=== PATIENT | male | born 1935 | race Caucasian/White ===

== ENCOUNTER 2017-06-08 14:30 | Outpatient (RCR) | payer MEDICARE, BC, SELFPAY | END 2017-06-16 | LOC: INF 14:30 | PROVIDERS: Family Provider Family Medicine; PCP Family Medicine | DX: C34.90 Malignant neoplasm of unspecified part of unspecified bronchus or lung (principal) | CPT/HCPCS: 99214 ==

== ENCOUNTER → 2017-08-22 10:17 | Outpatient (CLI) | payer MEDICARE, BC, SELFPAY ==
[2017-08-22 10:57] LABS: Add Manual Diff / Slide Review NO; Basophils Percent Auto 0.5 % (0-2); Lymphocytes Percent Auto 26.5 % (25-40); Mean Corpuscular HGB Conc 34.2 % (30-36); Mean Corpuscular Hemoglobin 32.9 PG (26-34); Mean Corpuscular Volume 96.3 fL (80-100); Monocytes Percent Auto 9.8 % (3-14); Neutrophils Absolute Auto 3300 /uL (3000-5900); Neutrophils Percent Auto 61.2 % (50-75); Platelet Count 147 X10^3/uL (150-400); Red Blood Cell Count 4.57 X10^6/uL (4.5-5.9); Red Cell Distribution Width 12.9 % (11.6-14.8); White Blood Cell Count 5.4 X10^3/uL (4.5-11.0)
[2017-08-22 11:13] LABS: Alanine Aminotransferase 28 IU/L (21-72); Albumin Globulin Ratio 1.5 (1.0-2.8); Alkaline Phosphatase 56 U/L (38-126); Aspartate Aminotransferase 21 IU/L (17-59); BUN Creatinine Ratio 14.3 (6-22); Bilirubin Total 0.6 mg/dL (0.2-1.3); Blood Urea Nitrogen 10 mg/dL (9-20); Calcium 9.2 mg/dL (8.4-10.2); Carbon Dioxide 34 mmol/L (22-32); Chloride 98 mmol/L (98-107); Estimated Glomerular Filt Rate > 60.0 mL/min (>60); Globulin 2.7 g/dL (1.7-4.1); Glucose 73 mg/dL (80-110); HEMOLYSIS < 15 (0-50); Sodium 140 mmol/L (137-145); Total Protein 6.7 g/dL (6.3-8.2)
== END ==
PROVIDERS: Family Provider Family Medicine; PCP Family Medicine; Visit Provider Nurse Practitioner Gerontology
DX: C34.90 Malignant neoplasm of unspecified part of unspecified bronchus or lung (principal)
CPT/HCPCS: 36415; 80053; 82378; 85025

== ENCOUNTER → 2017-08-29 12:05 | Outpatient (CLI) | payer MEDICARE, BC, SELFPAY ==
--- NOTE | 2017-08-29 12:26 | DI.CT.S_ITS ---
PROCEDURE: CT CHEST W CON INDICATIONS: 81 year-old male with left apical lung cancer. TECHNIQUE: After the administration of intravenous contrast, 5 mm thick sections acquired from the pulmonary apices to the posterior costophrenic angles. 7 mm thick coronal and sagittal MIP reformats were acquired. For radiation dose reduction, the following was used: automated exposure control, adjustment of mA and/or kV according to patient size. COMPARISON: [facility], CT, THORAX WITH CONTRAST, 06/05/2017, 10:04. [place], [place], PET NECK TO MID THIGH STD, 09/27/2016, 9:12. [facility], CT, THORAX WITH CONTRAST, 08/30/2016, 11:09. [facility], CT, IVP (ABD & PEL WWO CONTRAST), 12/20/2015, 9:19. [facility], CT, THORAX WITHOUT CONTRAST, 12/18/2013, 10:21. [facility], CT, IVP (ABD & PEL WWO CONTRAST), 09/22/2013, 13:41. FINDINGS: Image quality: Excellent. Lungs and pleura: No acute air space opacities. Patient is status post left upper lobectomy as before, with postoperative soft tissue density lesion in the medial right upper thorax slightly decreased in size. No pleural effusions or pneumothorax. Central and peripheral airways are patent and normal in caliber. Mediastinum: Heart size is normal. No pericardial effusion. No mediastinal or hilar adenopathy by size criteria. Thoracic aorta and central pulmonary arteries are normal in size. Esophagus is normal in caliber. No hiatal hernia. Bones and chest wall: No suspicious bony lesions. Nonacute healed left fifth rib fracture is new since September 2016, presumably from thoracotomy. No vertebral body compression fractures. No axillary or supraclavicular adenopathy by size criteria. Thyroid gland is normal in size. Abdomen: Visualized upper abdominal solid organs appear normal. Upper abdominal bowel loops are normal in caliber. IMPRESSION: Status post left upper lobectomy, with slightly decreased size of postoperative left superior thoracic soft tissue density lesion, presumably localized scarring. No new findings to suggest regional radha metastases or local recurrence. Dictated by: Willard Tucker M.D. on 08/29/2017 at 14:05 Approved by: Willard Tucker M.D. on 08/29/2017 at 14:15
== END ==
PROVIDERS: PCP Family Medicine; Visit Provider Nurse Practitioner Gerontology
DX: C34.92 Malignant neoplasm of unspecified part of left bronchus or lung (principal)
CPT/HCPCS: 71260; Q9967

== ENCOUNTER → 2017-10-30 09:00 | Outpatient (CLI) | payer MEDICARE, BC, SELFPAY ==
--- NOTE | 2017-10-30 | DI.CT.S_ITS ---
PROCEDURE: CT ABDOMEN PELVIS WO/W CON INDICATIONS: PROSTATE CANCER TECHNIQUE: After the administration of oral contrast, 5 mm thick sections acquired from the diaphragms to the iliac crests. After the administration of intravenous contrast, 5 mm thick sections acquired from the diaphragms to the symphysis. 5 mm thick coronal and sagittal reformats were acquired. For radiation dose reduction, the following was used: automated exposure control, adjustment of mA and/or kV according to patient size. COMPARISON: [facility], CT, IVP (ABD & PEL WWO CONTRAST), 12/20/2015, 9:19. [facility], [place], PET NECK TO MID THIGH STD, 09/27/2016, 9:12. FINDINGS: Image quality: Excellent. ABDOMEN: Lung bases: Lung bases show minimal dependent ground glass opacities in the right, likely atelectatic. Heart size is normal. Solid organs: Liver is normal in size and enhancement. A 5 mm hypodensity in the anterior dome of liver is too small to characterize but appears unchanged. Gallbladder is unremarkable. Biliary system is non-dilated. Pancreas enhances normally. Spleen is normal in size and enhancement. No adrenal nodules. Both kidneys are normal in size. No hydronephrosis or nephrolithiasis. In the central right kidney is an 8mm hyperdense rounded mass, not well-seen on prior. In the posterior right lower pole is an exophytic 1.5 cm hypodense mass that is unchanged. In the far inferior pole of the right kidney is a 1.6 x 1.8 cm isodense mass that was hyperdense on prior exam and does again show heterogeneous enhancement. Prior measurement of this mass was 1.8 x 1.8 cm and 2015 and 1.6 x 1.6 cm and 2008. Bowel and peritoneum: Stomach, small and large bowel loops are normal in caliber and wall thickness. Sutures are present over the cecum. No free fluid or air. Nodes and vessels: No retroperitoneal or mesenteric adenopathy by size criteria. Atheromatous aorta and inferior vena are normal in caliber. Miscellaneous: No ventral hernias. PELVIS: Genitourinary: Bladder wall thickness is normal. Numerous radioactive seeds are again noted in the prostate Miscellaneous: Bilateral fat filled inguinal hernias, no adenopathy. Bones: No suspicious bony lesions. No vertebral body compression fractures. IMPRESSION: 1. Mass lesion suspect for low grade renal cell carcinoma at the inferior tip of the right kidney remains stable in size. Additional simple and hyperdense renal cysts. 2. Prostate brachytherapy with no apparent metastatic disease. 3. Known mass in the left upper lobe of lung is not included in this study. Dictated by: New Crowley M.D. on 10/30/2017 at 14:04 Approved by: New Crowley M.D. on 10/30/2017 at 14:23
[2017-10-30 09:36] LABS: BUN Creatinine Ratio 15.7 (6-22); Blood Urea Nitrogen 11 mg/dL (9-20); Estimated Glomerular Filt Rate > 60.0 mL/min (>60)
== END ==
PROVIDERS: PCP Family Medicine; Visit Provider Urology
DX: C61 Malignant neoplasm of prostate (principal); N28.89 Other specified disorders of kidney and ureter
CPT/HCPCS: 36415; 74178; 82565; 84520; Q9967

== ENCOUNTER → 2018-02-26 09:57 | Outpatient (CLI) | payer MEDICARE, BC, SELFPAY ==
[2018-02-26 10:19] LABS: Add Manual Diff / Slide Review NO; Basophils Percent Auto 0.5 % (0-2); Eosinophils Percent Auto 1.2 % (2-4); Hematocrit 46.2 % (41-53); Hemoglobin 15.7 g/dL (13.5-17.5); Mean Corpuscular HGB Conc 34.1 % (30-36); Mean Corpuscular Hemoglobin 32.9 PG (26-34); Mean Corpuscular Volume 96.3 fL (80-100); Monocytes Percent Auto 8.2 % (3-14); Neutrophils Absolute Auto 4300 /uL (3000-5900); Neutrophils Percent Auto 71.1 % (50-75); Platelet Count 156 X10^3/uL (150-400); Red Blood Cell Count 4.79 X10^6/uL (4.5-5.9); Red Cell Distribution Width 13.1 % (11.6-14.8); White Blood Cell Count 6.1 X10^3/uL (4.5-11.0)
[2018-02-26 10:29] LABS: Alanine Aminotransferase 27 IU/L (21-72); Albumin 4.3 g/dL (3.5-5.0); Albumin Globulin Ratio 1.7 (1.0-2.8); Alkaline Phosphatase 63 U/L (38-126); Aspartate Aminotransferase 22 IU/L (17-59); BUN Creatinine Ratio 15.7 (6-22); Bilirubin Total 0.7 mg/dL (0.2-1.3); Blood Urea Nitrogen 11 mg/dL (9-20); Calcium 9.2 mg/dL (8.4-10.2); Carbon Dioxide 32 mmol/L (22-32); Chloride 98 mmol/L (98-107); Estimated Glomerular Filt Rate > 60.0 mL/min (>60); Globulin 2.5 g/dL (1.7-4.1); Glucose 88 mg/dL (80-110); HEMOLYSIS 18 (0-50); Potassium 4.7 mmol/L (3.4-5.1); Sodium 141 mmol/L (137-145); Total Protein 6.8 g/dL (6.3-8.2)
[2018-02-26 11:07] LABS: Carcinoembryonic Antigen 5.7 ng/mL (0.1-3.0)
--- NOTE | 2018-02-26 11:56 | DI.CT.S_ITS ---
PROCEDURE: CT CHEST W CON INDICATIONS: Lung cancer surveillence post lobectomy TECHNIQUE: After the administration of intravenous contrast, 5 mm thick sections acquired from the pulmonary apices to the posterior costophrenic angles. 7 mm thick coronal and sagittal MIP reformats were acquired. For radiation dose reduction, the following was used: automated exposure control, adjustment of mA and/or kV according to patient size. COMPARISON: [facility], CT, CT CHEST W CON, 08/29/2017, 12:07. FINDINGS: Image quality: Excellent. Lungs and pleura: Status post left upper lobectomy. The low-density focus within the medial aspect of the left apex which partially encases the left subclavian artery is unchanged, currently measuring 32 mm in diameter. Severe bilateral emphysema is present, as before. No acute air space opacities. No pleural effusions or pneumothorax. Central and peripheral airways are patent. There is narrowing of the transverse diameter of the intrathoracic trachea, as before. Mediastinum: Heart size is enlarged. There is calcification of the coronary vasculature. No pericardial effusion. No mediastinal or hilar adenopathy by size criteria. Thoracic aorta and central pulmonary arteries are normal in size. Esophagus is normal in caliber. No hiatal hernia. Bones and chest wall: No suspicious bony lesions. No vertebral body compression fractures. No axillary or supraclavicular adenopathy by size criteria. Thyroid gland is within normal limits. Abdomen: Visualized upper abdominal solid organs appear normal. Upper abdominal bowel loops are normal in caliber. IMPRESSION: 1. Post surgical sequelae. 2. No change in left apical lesion, compatible with scarring. 3. Emphysema. 4. Coronary artery disease. Dictated by: David Pierre M.D. on 02/26/2018 at 17:03 Approved by: David Pierre M.D. on 02/26/2018 at 17:05
== END ==
PROVIDERS: PCP Family Medicine; Referring Provider Surgery; Visit Provider Nurse Practitioner Gerontology
DX: C34.90 Malignant neoplasm of unspecified part of unspecified bronchus or lung (principal); J43.9 Emphysema, unspecified; I25.10 Atherosclerotic heart disease of native coronary artery without angina pectoris
CPT/HCPCS: 36415; 71260; 80053; 82378; 85025; Q9967

== ENCOUNTER 2018-05-13 15:49 | Inpatient (IN) | payer MEDICARE, BC, SELFPAY ==
[2018-05-13 15:54] VITALS: BP 140/65; PULSE 83; RESP 18; TEMP 36.9; O2SAT 94; BMI 21.9
[2018-05-13 17:17] LABS: Add Manual Diff / Slide Review NO; Basophils Absolute Auto 0 /uL (0-100); Basophils Percent Auto 0.5 % (0-2); Eosinophils Absolute Auto 0 /uL (0-450); Eosinophils Percent Auto 0.5 % (2-4); Hematocrit 49.2 % (41-53); Hemoglobin 16.4 g/dL (13.5-17.5); Lymphocytes Absolute Auto 1100 /uL (1100-4500); Lymphocytes Percent Auto 12.4 % (25-40); Mean Corpuscular HGB Conc 33.4 % (30-36); Mean Corpuscular Volume 95.9 fL (80-100); Monocytes Absolute Auto 600 /uL (0-900); Monocytes Percent Auto 6.7 % (3-14); Neutrophils Absolute Auto 6800 /uL (1500-7000); Neutrophils Percent Auto 79.9 % (50-75); Platelet Count 149 X10^3/uL (150-400); Red Blood Cell Count 5.13 X10^6/uL (4.5-5.9); White Blood Cell Count 8.6 X10^3/uL (4.5-11.0)
[2018-05-13 17:19] LABS: Alanine Aminotransferase 28 IU/L (21-72); Albumin 4.4 g/dL (3.5-5.0); Albumin Globulin Ratio 1.5 (1.0-2.8); Alkaline Phosphatase 69 U/L (38-126); Aspartate Aminotransferase 24 IU/L (17-59); BUN Creatinine Ratio 18.6 (6-22); Bilirubin Total 1.2 mg/dL (0.2-1.3); Blood Urea Nitrogen 13 mg/dL (9-20); Calcium 9.3 mg/dL (8.4-10.2); Carbon Dioxide 27 mmol/L (22-32); Chloride 95 mmol/L (98-107); Estimated Glomerular Filt Rate > 60.0 mL/min (>60); Glucose 111 mg/dL (80-110); HEMOLYSIS 32 (0-50); Lipase 29 U/L (23-300); Potassium 4.4 mmol/L (3.4-5.1); Sodium 134 mmol/L (137-145); Total Protein 7.4 g/dL (6.3-8.2)
[2018-05-13 17:35] VITALS: BP 140/59; PULSE 84; RESP 19; O2SAT 94
--- NOTE | 2018-05-13 17:41 | DI.CT.S_ITS ---
PROCEDURE: CT ABDOMEN PELVIS W CON INDICATIONS: vomiting pain distention hx sbo TECHNIQUE: After the administration of intravenous contrast, 5 mm thick sections acquired from the diaphragm to the symphysis. 5 mm coronal and sagittal reformats were acquired. For radiation dose reduction, the following was used: automated exposure control, adjustment of mA and/or kV according to patient size. COMPARISON: [facility], CT, CT ABDOMEN PELVIS WO/W CON, 10/30/2017, 9:48. FINDINGS: Image quality: Excellent. ABDOMEN: Lung bases: Lung bases are clear. Heart size is normal. Solid organs: Liver is normal in size and enhancement. Gallbladder is unremarkable. Biliary system is non dilated. Pancreas enhances normally. Spleen is normal in size and enhancement. No adrenal nodules. Kidneys demonstrate normal size and enhancement, without hydronephrosis. 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 No other renal masses are seen. Peritoneum and bowel: There is a small bowel obstruction, which is distal. The proximal small bowel is dilated up to 5.3 cm. Partial colectomy is noted. There is stool present to a suture line at the level of the mid transverse colon. Nodes and vessels: No retroperitoneal or mesenteric adenopathy by size criteria. Aorta and inferior vena cava are normal in size. Miscellaneous: No ventral hernias. PELVIS: Genitourinary: Bladder wall thickness is normal. Prostate implant seeds are noted. Miscellaneous: No inguinal hernias or adenopathy. Bones: No suspicious bony lesions. No vertebral body compression fractures. IMPRESSION: 1. Distal small bowel obstruction. 2. Remote partial colectomy. 3. Prostate implant seeds. 4. 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 Dictated by: Yon Anderson M.D. on 05/13/2018 at 18:32 Approved by: Yon Anderson M.D. on 05/13/2018 at 18:43
[2018-05-13] MEDS: SODIUM CHLORIDE 0.9% 1,000 ML 150 ML IV ×2 (17:48→22:51)
[2018-05-13 18:30] LABS: Lactate (Lactic Acid) 0.9 mmol/L (0.7-2.1)
--- NOTE | 2018-05-13 19:05 | ED.ABDPAIN ---
HPI - Abdominal Pain General Chief Complaint: Abdominal Pain Stated Complaint: thinks he has a bowl obstruction Time Seen by Provider: 05/13/18 17:41 Source: patient and family Mode of arrival: ambulatory Limitations: no limitations History of Present Illness HPI narrative: 82-year-old male nonsmoker presents with his and a chief complaint of lower abdominal pain over the course of the day. He had a few small pieces of bowel movement earlier today with since late morning he has had worsening lower abdominal pain with nausea. His pain is worse with motion and improves with rest. He denies provocation, palliation or radiation. He states his history of bowel obstruction started with what sounds like a volvulus a few years ago in which he had a surgical resection. He had another bowel obstruction in 2017 that was managed medically. Related Data Home Medications Medication Instructions Recorded Confirmed Spiriva with HandiHaler 18 mcg RT 0600 #0 09/18/16 05/13/18 calcium carbonate [Oyster Shell 500 mg PO DAILY #0 09/18/16 05/13/18 Calcium 500] cholecalciferol (vitamin D3) 2,000 iu PO DAILY #0 09/18/16 05/13/18 [Vitamin D3] albuterol sulfate 2 puff INHALATION Q6H PRN 08/31/17 05/13/18 atorvastatin [Lipitor] 10 mg PO DAILY 08/31/17 05/13/18 Lactobac. rhamnosus GG-inulin 1 cap PO DAILY 05/13/18 05/13/18 [Culturelle Probiotics] ascorbic acid (vitamin C) [Vitamin 1 g PO DAILY 05/13/18 05/13/18 C] magnesium 250 mg PO DAILY 05/13/18 05/13/18 gfrgijee-gir-AR-lycopen-lutein 1 tab PO DAILY 05/13/18 05/13/18 [Centrum Silver] piroxicam 20 mg PO DAILY PRN 05/13/18 05/13/18 Allergies Allergy/AdvReac Type Severity Reaction Status Date / Time adhesive AdvReac Mild REDNESS Unverified 06/27/17 11:48 naproxen AdvReac Mild TERRIBLE Unverified 06/27/17 11:48 GAS PAIN Review of Systems Constitutional Denies chills, Denies fever(s), Denies lethargy and Denies weakness Eyes Denies change in vision, Denies eye discharge, Denies irritation and Denies loss of vision ENT Ears, Nose, Mouth, and Throat: Denies change in voice, Denies neck pain and Denies sore throat Cardiovascular Denies chest pain, Denies irregular heart rhythm, Denies lightheadedness, Denies palpitations, Denies dyspnea, Denies dyspnea on exertion and Denies orthopnea Respiratory Denies cough, Denies dyspnea, Denies dyspnea on exertion and Denies wheezing Gastrointestinal Gastrointestinal: Reports abdominal pain, Denies change in bowel habits, Denies diarrhea, Reports nausea and Denies vomiting Genitourinary Denies hematuria, Denies flank pain, Denies urinary incontinence and Denies urinary urgency Musculoskeletal Denies neck pain Integumentary/Breasts Denies pruritus, Denies erythema, Denies rash and Denies wounds Neurologic Denies confusion, Denies loss of vision and Denies weakness Psychiatric Denies anxiety, Denies confusion, Denies depression, Denies homicidal ideation and Denies suicidal ideation Endocrine Denies palpitations Hematologic/Lymphatic Denies easy bruising Allergic/Immunologic Denies wheezing [employer] Medical History Cataract of right eye (Acute) Cyst of buttocks (Acute) Inguinal hernia bilateral, non-recurrent (Acute) Surgical History H/O vasectomy (Acute) Hx of colectomy (Acute) Social History household members: spouse Smoking Status: Never smoker alcohol intake: never Social History household members: spouse Smoking Status: Never smoker alcohol intake: never Exam Narrative Exam Narrative: GENERAL: 82-year-old male, very pleasant but obviously uncomfortable. Alert and oriented x3 HEAD: Atraumatic. Normocephalic. No temporal or scalp tenderness. EYES: Pupils equal round and reactive. Extraocular motions intact. No scleral icterus. No injection or drainage. ENT: Nose without bleeding, purulent drainage or septal hematoma. Throat without erythema, tonsillar hypertrophy or exudate. Uvula midline. Airway patent. NECK: Trachea midline. No JVD or lymphadenopathy. Supple, nontender, no meningeal signs. CARDIOVASCULAR: Regular rate and rhythm without murmurs, gallops, or rubs. RESPIRATORY: Clear to auscultation. Breath sounds equal bilaterally. No wheezes, rales, or rhonchi. GASTROINTESTINAL: Abdomen is soft but distended with decreased bowel sounds. It is quite tender to palpation in his lower the abdomen EXTREMITIES: No clubbing, cyanosis, or edema. No joint tenderness, effusion, or edema noted. BACK: Nontender without deformity or crepitance. No flank tenderness. NEURO: AOx3. SKIN: No rash or erythema. Initial Vital Signs Initial Vital Signs: Vital Signs Temperature 98.5 F 05/13/18 15:54 Pulse Rate 83 05/13/18 15:54 Respiratory Rate 18 05/13/18 15:54 Blood Pressure 140/65 05/13/18 15:54 Pulse Oximetry 94 05/13/18 15:54 Course Orders Ordered: ED Orders 05/14/18 05:30 Basic Metabolic Panel Stat Complete Blood Count AUTO DIFF Stat Albuterol (Ventolin Hfa) 2 puff INH Q6H PRN PRN Reason: Dyspnea Atorvastatin Calcium (Lipitor) 10 mg PO DAILY ISABEL Sodium Chloride (Normal Saline 0.9%) 1,000 mls @ 150 mls/hr IV CONT ISABEL Last Admin: 05/13/18 22:51 Dose: 150 mls/hr Infusion: 05/13/18 22:10 Dose: 150 mls/hr Infusion: 05/13/18 22:09 Dose: 0 mls/hr Infusion: 05/13/18 19:54 Dose: 150 mls/hr Admin: 05/13/18 17:48 Dose: 150 mls/hr Morphine Sulfate (Morphine) 2 mg IV Q4HR PRN PRN Reason: Pain, Severe (7-10) Ondansetron HCl (Zofran) 4 mg IV Q4HR PRN PRN Reason: Nausea And Vomiting Pantoprazole Sodium (Protonix) 40 mg IV DAILY ISABEL Discontinued Medications Hydromorphone HCl (Dilaudid) 0.5 mg IV NOW ONE Stop: 05/13/18 17:42 Last Admin: 05/13/18 19:54 Dose: Not Given Ondansetron HCl (Zofran) 4 mg IV NOW ONE Stop: 05/13/18 17:42 Last Admin: 05/13/18 19:54 Dose: Not Given Consultations Consultation #1: Discussed case with on-call surgeon and we sure the opinion that given lack of vomiting, radiographic evidence of complete obstruction and elevated white count the patient can be appropriately admitted to Medicine with surgical consult as needed Consultation #2: Called to Dr. Rasmussen whom is on-call for the patient's primary care provider, Dr. Knott. We agree that given lack of persistent vomiting, complete obstruction that patient does not need NG tube at this point in time Vital Signs - 8 hr 05/13/18 20:45 05/13/18 23:55 05/14/18 04:00 Temperature 97.1 F L 99.4 F 98.5 F Pulse Rate 97 H 89 Respiratory Rate 20 16 18 Blood Pressure 130/68 129/57 L 128/60 Pulse Oximetry 91 92 91 MDM - Abdominal Pain Differential Diagnosis Differential diagnosis: Likely abdominal pain, acute appendicitis, calculus of kidney, constipation, diverticulitis, endometriosis, gastroenteritis, pancreatitis and small bowel obstruction Medical Records Attestation: I reviewed the patient's medical records. Lab Data Attestation: I reviewed the patient's lab results. Result diagrams: 05/13/18 16:55 05/13/18 16:55 Lab Results 05/13/18 05/13/18 05/13/18 Range/Units 16:55 16:55 18:13 WBC 8.6 (4.5-11.0) X10^3/uL RBC 5.13 (4.5-5.9) X10^6/uL Hgb 16.4 (13.5-17.5) g/dL Hct 49.2 (41-53) % MCV 95.9 (80-100) fL MCH 32.0 (26-34) PG MCHC 33.4 (30-36) % RDW 13.0 (11.6-14.8) % Plt Count 149 L (150-400) X10^3/uL Neut % (Auto) 79.9 H (50-75) % Lymph % (Auto) 12.4 L (25-40) % Bent % (Auto) 6.7 (3-14) % Eos % (Auto) 0.5 L (2-4) % Baso % (Auto) 0.5 (0-2) % Neut # (Auto) 6800 (6677-6809) /uL Lymph # (Auto) 1100 (9232-3379) /uL Bent # (Auto) 600 (0-900) /uL Eos # (Auto) 0 (0-450) /uL Baso # (Auto) 0 (0-100) /uL Sodium 134 L (137-145) mmol/L Potassium 4.4 (3.4-5.1) mmol/L Chloride 95 L (98-107) mmol/L Carbon Dioxide 27 (22-32) mmol/L BUN 13 (9-20) mg/dL Creatinine 0.70 (0.66-1.25) mg/dL Estimated GFR > 60.0 (>60) mL/min BUN/Creatinine Ratio 18.6 (6-22) Glucose 111 H (80-110) mg/dL Lactate 0.9 (0.7-2.1) mmol/L Calcium 9.3 (8.4-10.2) mg/dL Total Bilirubin 1.2 (0.2-1.3) mg/dL AST 24 (17-59) IU/L ALT 28 (21-72) IU/L Alkaline Phosphatase 69 (38-126) U/L Total Protein 7.4 (6.3-8.2) g/dL Albumin 4.4 (3.5-5.0) g/dL Globulin 3.0 (1.7-4.1) g/dL Albumin/Globulin Ratio 1.5 (1.0-2.8) Lipase 29 (23-300) U/L Imaging Data CT scan - abdomen: Radiologist's impression: [address] [address] [address] Scan Report Signed Patient: Jose Neal WMR#: [id number] : 6Acct:[id number] Age/Sex: 82 / MDate of Service: 05/13/18 Loc: ED Accession Number: [id number] Procedure: CT abdomen pelvis w con Ordering Provider: Dee Dee Mcintyre D.O. PROCEDURE: CT ABDOMEN PELVIS W CON INDICATIONS: vomiting pain distention hx sbo TECHNIQUE: After the administration of intravenous contrast, 5 mm thick sections acquired from the diaphragm to the symphysis. 5 mm coronal and sagittal reformats were acquired. For radiation dose reduction, the following was used: automated exposure control, adjustment of mA and/or kV according to patient size. COMPARISON: [facility], CT, CT ABDOMEN PELVIS WO/W CON, 10/30/2017, 9:48. FINDINGS: Image quality: Excellent. ABDOMEN: Lung bases: Lung bases are clear. Heart size is normal. Solid organs: Liver is normal in size and enhancement. Gallbladder is unremarkable. Biliary system is non dilated. Pancreas enhances normally. Spleen is normal in size and enhancement. No adrenal nodules. Kidneys demonstrate normal size and enhancement, without hydronephrosis. 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 No other renal masses are seen. Peritoneum and bowel: There is a small bowel obstruction, which is distal. The proximal small bowel is dilated up to 5.3 cm. Partial colectomy is noted. There is stool present to a suture line at the level of the mid transverse colon. Nodes and vessels: No retroperitoneal or mesenteric adenopathy by size criteria. Aorta and inferior vena cava are normal in size. Miscellaneous: No ventral hernias. PELVIS: Genitourinary: Bladder wall thickness is normal. Prostate implant seeds are noted. Miscellaneous: No inguinal hernias or adenopathy. Bones: No suspicious bony lesions. No vertebral body compression fractures. IMPRESSION: 1. Distal small bowel obstruction. 2. Remote partial colectomy. 3. Prostate implant seeds. 4. 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 Dictated by: Yon Anderson M.D. on 05/13/2018 at 18:32 Approved by: Yon Anderson M.D. on 05/13/2018 at 18:43 MDM Narrative Medical decision making narrative: 82-year-old male with history of small-bowel obstruction presents with signs and symptoms consistent with another, confirmed by imaging. Initial consult to General surgery whom is comfortable with patient admission to hospitalist service. No NG indicated given lack of vomiting or persistent pain requiring the the multiple narcotics. Patient requires admission to ensure the prompt and complete resolution of this potentially surgical problem Discharge Plan Departure Patient Disposition: Admitted As Inpatient Clinical Impression: Bowel obstruction Qualifiers: Intestinal obstruction type: obstruction due to adhesions Intestinal obstruction extent: partial Qualified Code(s): K56.51 - Intestinal adhesions [bands], with partial obstruction Discharge Date/Time: 05/13/18 19:30 Interventions: ED Discharge Assessment Last Done: 05/13/18 20:28 Admit Date/Time: 05/13/18 19:24 Admit Provider: Lis Rasmussen
[2018-05-13 19:55] VITALS: BP 147/98
[2018-05-13 20:12] VITALS: BMI 21.9
[2018-05-13 20:45] VITALS: BP 130/68; RESP 20; TEMP 36.2; O2SAT 91
--- NOTE | 2018-05-13 22:01 | PC.NURSE ---
2030- Pt arrived from ED safely; admit for small bowel obstruction. Pt states he is having some R sided abdominal discomfort, but denies the need for pain medication. VSS; RA; NS running per orders. @ bedside; pt is able to ambulate independently. NPO for poss surgery. Urine sample sent to lab per orders. 2199- & pt informed that nighttime statin medication would not be available because pharmacy is closed. Agreeable, and understand the situation. No medications given at this time.
[2018-05-13 23:55] VITALS: BP 129/57; PULSE 97; RESP 16; TEMP 37.4; O2SAT 92
--- NOTE | 2018-05-13 23:59 | PC.NURSE ---
Addendum entered by Halina Rosenbaum R.N. 05/14/18 04:55: Has been very stoic all shift, refusing pain medication but now agreeable to taking Morphine for 5/10 abdominal pain. States he is not passing as much flatus. Original Note: Patient is alert and oriented. Breath sounds CTA but with congested chronic cough related to COPD; reports clear sputum. Denies SOB; RA sat is 92%. HRR. Denies nausea. BT present; abdomen is soft, distended and tender in RLQ. States he is passing flatus. Denies dysuria, frequency or urgency; using urinal at bedside. Independent with bed mobility. Denies current pain but states it waxes and wanes. rooming in. Fall risk score is moderate; patient reminded to call for assist and not to get out of bed on own.
[2018-05-14] VITALS (8 sets, daily range): BP systolic 110–132; BP diastolic 54–62; PULSE 73–98; RESP 16–24; TEMP 36.7–37.2; O2SAT 90–97
--- NOTE | 2018-05-14 03:58 | ED_ITS ---
HPI - Abdominal Pain General Chief Complaint: Abdominal Pain Stated Complaint: thinks he has a bowl obstruction Time Seen by Provider: 05/13/18 17:41 Source: patient and family Mode of arrival: ambulatory Limitations: no limitations History of Present Illness HPI narrative: 82-year-old male nonsmoker presents with his and a chief complaint of lower abdominal pain over the course of the day. He had a few smal l pieces of bowel movement earlier today with since late morning he has had worsening lower abdominal pain with nausea. His pain is worse with motion and improves with rest. He denies provocation, palliation or radiation. He states his history of bowel obstruction started with what sounds like a volvulus a few years ago in which he had a surgical resection. He had another bowel obstruction in 2017 that was managed medically. Related Data Home Medications Medication Instructions Recorded Confirmed Spiriva with HandiHaler 18 mcg RT 0600 #0 09/18/16 05/13/18 calcium carbonate [Oyster Shell 500 mg PO DAILY #0 09/18/16 05/13/18 Calcium 500] cholecalciferol (vitamin D3) 2,000 iu PO DAILY #0 09/18/16 05/13/18 [Vitamin D3] albuterol sulfate 2 puff INHALATION Q6H PRN 08/31/17 05/13/18 atorvastatin [Lipitor] 10 mg PO DAILY 08/31/17 05/13/18 Lactobac. rhamnosus GG-inulin 1 cap PO DAILY 05/13/18 05/13/18 [Culturelle Probiotics] ascorbic acid (vitamin C) [Vitamin 1 g PO DAILY 05/13/18 05/13/18 C] magnesium 250 mg PO DAILY 05/13/18 05/13/18 [id number]-lycopen-lutein 1 tab PO DAILY 05/13/18 05/13/18 [Centrum Silver] piroxicam 20 mg PO DAILY PRN 05/13/18 05/13/18 Allergies Allergy/AdvReac Type Severity Reaction Status Date / Time adhesive AdvReac Mild REDNESS Unverified 06/27/17 11:48 naproxen AdvReac Mild TERRIBLE Unverified 06/27/17 11:48 GAS PAIN Review of Systems Constitutional Denies chills, Denies fever(s), Denies lethargy and Denies weakness Eyes Denies change in vision, Denies eye discharge, Denies irritation and Denies loss of vision ENT Ears, Nose, Mouth, and Throat: Denies change in voice, Denies neck pain and Denies sore throat Cardiovascular Denies chest pain, Denies irregular heart rhythm, Denies lightheadedness, Denies palpitations, Denies dyspnea, Denies dyspnea on exertion and Denies orthopnea Respiratory Denies cough, Denies dyspnea, Denies dyspnea on exertion and Denies wheezing Gastrointestinal Gastrointestinal: Reports abdominal pain, Denies change in bowel habits, Denies diarrhea, Reports nausea and Denies vomiting Genitourinary Denies hematuria, Denies flank pain, Denies urinary incontinence and Denies urinary urgency Musculoskeletal Denies neck pain Integumentary/Breasts Denies pruritus, Denies erythema, Denies rash and Denies wounds Neurologic Denies confusion, Denies loss of vision and Denies weakness Psychiatric Denies anxiety, Denies confusion, Denies depression, Denies homicidal ideation and Denies suicidal ideation Endocrine Denies palpitations Hematologic/Lymphatic Denies easy bruising Allergic/Immunologic Denies wheezing PFSH Medical History Cataract of right eye (Acute) Cyst of buttocks (Acute) Inguinal hernia bilateral, non-recurrent (Acute) Surgical History H/O vasectomy (Acute) Hx of colectomy (Acute) Social History household members: spouse Smoking Status: Never smoker alcohol intake: never Social History household members: spouse Smoking Status: Never smoker alcohol intake: never Exam Narrative Exam Narrative: GENERAL: 82-year-old male, very pleasant but obviously uncomfortable. Alert and oriented x3 HEAD: Atraumatic. Normocephalic. No temporal or scalp tenderness. EYES: Pupils equal round and reactive. Extraocular motions intact. No scleral icterus. No injection or drainage. ENT: Nose without bleeding, purulent drainage or septal hematoma. Throat without erythema, tonsillar hypertrophy or exudate. Uvula midline. Airway patent. NECK: Trachea midline. No JVD or lymphadenopathy. Supple, nontender, no meningeal signs. CARDIOVASCULAR: Regular rate and rhythm without murmurs, gallops, or rubs. RESPIRATORY: Clear to auscultation. Breath sounds equal bilaterally. No wheezes, rales, or rhonchi. GASTROINTESTINAL: Abdomen is soft but distended with decreased bowel sounds. It is quite tender to palpation in his lower the abdomen EXTREMITIES: No clubbing, cyanosis, or edema. No joint tenderness, effusion, or edema noted. BACK: Nontender without deformity or crepitance. No flank tenderness. NEURO: AOx3. SKIN: No rash or erythema. Initial Vital Signs Initial Vital Signs: Vital Signs Temperature 98.5 F 05/13/18 15:54 Pulse Rate 83 05/13/18 15:54 Respiratory Rate 18 05/13/18 15:54 Blood Pressure 140/65 05/13/18 15:54 Pulse Oximetry 94 05/13/18 15:54 Course Orders Ordered: ED Orders 05/14/18 05:30 Basic Metabolic Panel Stat Complete Blood Count AUTO DIFF Stat Albuterol (Ventolin Hfa) 2 puff INH Q6H PRN PRN Reason: Dyspnea Atorvastatin Calcium (Lipitor) 10 mg PO DAILY ISABEL Sodium Chloride (Normal Saline 0.9%) 1,000 mls @ 150 mls/hr IV CONT ISABEL Last Admin: 05/13/18 22:51 Dose: 150 mls/hr Infusion: 05/13/18 22:10 Dose: 150 mls/hr Infusion: 05/13/18 22:09 Dose: 0 mls/hr Infusion: 05/13/18 19:54 Dose: 150 mls/hr Admin: 05/13/18 17:48 Dose: 150 mls/hr Morphine Sulfate (Morphine) 2 mg IV Q4HR PRN PRN Reason: Pain, Severe (7-10) Ondansetron HCl (Zofran) 4 mg IV Q4HR PRN PRN Reason: Nausea And Vomiting Pantoprazole Sodium (Protonix) 40 mg IV DAILY ISABEL Discontinued Medications Hydromorphone HCl (Dilaudid) 0.5 mg IV NOW ONE Stop: 05/13/18 17:42 Last Admin: 05/13/18 19:54 Dose: Not Given Ondansetron HCl (Zofran) 4 mg IV NOW ONE Stop: 05/13/18 17:42 Last Admin: 05/13/18 19:54 Dose: Not Given Consultations Consultation #1: Discussed case with on-call surgeon and we sure the opinion that given lack of vomiting, radiographic evidence of complete obstruction and elevated white count the patient can be appropriately admitted to Medicine with surgical consult as needed Consultation #2: Called to Dr. Rasmussen whom is on-call for the patient's primary care provider, Dr. Knott. We agree that given lack of persistent vomiting, complete obstruction that patient does not need NG tube at this point in time Vital Signs - 8 hr 05/13/18 20:45 05/13/18 23:55 05/14/18 04:00 Temperature 97.1 F L 99.4 F 98.5 F Pulse Rate 97 H 89 Respiratory Rate 20 16 18 Blood Pressure 130/68 129/57 L 128/60 Pulse Oximetry 91 92 91 MDM - Abdominal Pain Differential Diagnosis Differential diagnosis: Likely abdominal pain, acute appendicitis, calculus of kidney, constipation, diverticulitis, endometriosis, gastroenteritis, pancreatitis and small bowel obstruction Medical Records Attestation: I reviewed the patient's medical records. Lab Data Attestation: I reviewed the patient's lab results. Result diagrams: 05/13/18 16:55 05/13/18 16:55 Lab Results 05/13/18 05/13/18 05/13/18 Range/Units 16:55 16:55 18:13 WBC 8.6 (4.5-11.0) X10^3/uL RBC 5.13 (4.5-5.9) X10^6/uL Hgb 16.4 (13.5-17.5) g/dL Hct 49.2 (41-53) % MCV 95.9 (80-100) fL MCH 32.0 (26-34) PG MCHC 33.4 (30-36) % RDW 13.0 (11.6-14.8) % Plt Count 149 L (150-400) X10^3/uL Neut % (Auto) 79.9 H (50-75) % Lymph % (Auto) 12.4 L (25-40) % [place] % (Auto) 6.7 (3-14) % Eos % (Auto) 0.5 L (2-4) % Baso % (Auto) 0.5 (0-2) % Neut # (Auto) 6800 (1376-2242) /uL Lymph # (Auto) 1100 (6398-6868) /uL [place] # (Auto) 600 (0-900) /uL Eos # (Auto) 0 (0-450) /uL Baso # (Auto) 0 (0-100) /uL Sodium 134 L (137-145) mmol/L Potassium 4.4 (3.4-5.1) mmol/L Chloride 95 L (98-107) mmol/L Carbon Dioxide 27 (22-32) mmol/L BUN 13 (9-20) mg/dL Creatinine 0.70 (0.66-1.25) mg/dL Estimated GFR > 60.0 (>60) mL/min BUN/Creatinine Ratio 18.6 (6-22) Glucose 111 H (80-110) mg/dL Lactate 0.9 (0.7-2.1) mmol/L Calcium 9.3 (8.4-10.2) mg/dL Total Bilirubin 1.2 (0.2-1.3) mg/dL AST 24 (17-59) IU/L ALT 28 (21-72) IU/L Alkaline Phosphatase 69 (38-126) U/L Total Protein 7.4 (6.3-8.2) g/dL Albumin 4.4 (3.5-5.0) g/dL Globulin 3.0 (1.7-4.1) g/dL Albumin/Globulin Ratio 1.5 (1.0-2.8) Lipase 29 (23-300) U/L Imaging Data CT scan - abdomen: Radiologist's impression: [place] [address] CT Scan Report Signed Patient: Jose Neal WMR#: [id number] : 6Acct:[id number] Age/Sex: 82 / MDate of Service: 05/13/18 Loc: ED Accession Number: [id number] Procedure: CT abdomen pelvis w con Ordering Provider: Dee Dee Mcintyre D.O. PROCEDURE: CT ABDOMEN PELVIS W CON INDICATIONS: vomiting pain distention hx sbo TECHNIQUE: After the administration of intravenous contrast, 5 mm thick sections acquired from the diaphragm to the symphysis. 5 mm coronal and sagittal reformats were acquired. For radiation dose reduction, the following was used: automated exposure control, adjustment of mA and/or kV according to patient size. COMPARISON: [facility], CT, CT ABDOMEN PELVIS WO/W CON, 10/30/2017, 9:48. FINDINGS: Image quality: Excellent. ABDOMEN: Lung bases: Lung bases are clear. Heart size is normal. Solid organs: Liver is normal in size and enhancement. Gallbladder is unremarkable. Biliary system is non dilated. Pancreas enhances normally. Spleen is normal in size and enhancement. No adrenal nodules. Kidneys demonstrate normal size and enhancement, without hydronephrosis. 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 No other renal masses are seen. Peritoneum and bowel: There is a small bowel obstruction, which is distal. The proximal small bowel is dilated up to 5.3 cm. Partial colectomy is noted. There is stool present to a suture line at the level of the mid transverse colon. Nodes and vessels: No retroperitoneal or mesenteric adenopathy by size criteria. Aorta and inferior vena cava are normal in size. Miscellaneous: No ventral hernias. PELVIS: Genitourinary: Bladder wall thickness is normal. Prostate implant seeds are noted. Miscellaneous: No inguinal hernias or adenopathy. Bones: No suspicious bony lesions. No vertebral body compression fractures. IMPRESSION: 1. Distal small bowel obstruction. 2. Remote partial colectomy. 3. Prostate implant seeds. 4. 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 Dictated by: Yon Anderson M.D. on 05/13/2018 at 18:32 Approved by: Yon Anderson M.D. on 05/13/2018 at 18:43 MDM Narrative Medical decision making narrative: 82-year-old male with history of small-bowel obstruction presents with signs and symptoms consistent with another, confirmed by imaging. Initial consult to General surgery whom is comfortable with patient admission to hospitalist service. No NG indicated given lack of vomiting or persistent pain requiring the the multiple narcotics. Patient requires admission to ensure the prompt and complete resolution of this potentially surgical problem Discharge Plan Departure Patient Disposition: Admitted As Inpatient Clinical Impression: Bowel obstruction Qualifiers: Intestinal obstruction type: obstruction due to adhesions Intestinal obstruction extent: partial Qualified Code(s): K56.51 - Intestinal adhesions [bands], with partial obstruction Discharge Date/Time: 05/13/18 19:30 Interventions: ED Discharge Assessment Last Done: 05/13/18 20:28 Admit Date/Time: 05/13/18 19:24 Admit Provider: Lis Rasmussen
[2018-05-14] MEDS: SODIUM CHLORIDE 0.9% 1,000 ML 150 ML IV ×3 (04:51→18:30)
[2018-05-14] MEDS: MORPHINE 2 MG/ML INJ IV ×2 (04:53→11:24)
[2018-05-14 07:29] LABS: Add Manual Diff / Slide Review NO; Basophils Absolute Auto 0 /uL (0-100); Basophils Percent Auto 0.1 % (0-2); Eosinophils Absolute Auto 0 /uL (0-450); Eosinophils Percent Auto 0.7 % (2-4); Hematocrit 42.8 % (41-53); Hemoglobin 14.3 g/dL (13.5-17.5); Lymphocytes Absolute Auto 700 /uL (1100-4500); Lymphocytes Percent Auto 12.5 % (25-40); Mean Corpuscular HGB Conc 33.4 % (30-36); Mean Corpuscular Hemoglobin 31.9 PG (26-34); Mean Corpuscular Volume 95.4 fL (80-100); Monocytes Absolute Auto 700 /uL (0-900); Monocytes Percent Auto 11.8 % (3-14); Neutrophils Absolute Auto 4300 /uL (1500-7000); Neutrophils Percent Auto 74.9 % (50-75); Platelet Count 125 X10^3/uL (150-400); Red Blood Cell Count 4.48 X10^6/uL (4.5-5.9); Red Cell Distribution Width 12.7 % (11.6-14.8); White Blood Cell Count 5.7 X10^3/uL (4.5-11.0)
[2018-05-14 07:35] LABS: BUN Creatinine Ratio 16.7 (6-22); Blood Urea Nitrogen 10 mg/dL (9-20); Calcium 7.9 mg/dL (8.4-10.2); Carbon Dioxide 25 mmol/L (22-32); Chloride 102 mmol/L (98-107); Estimated Glomerular Filt Rate > 60.0 mL/min (>60); Glucose 94 mg/dL (80-110); HEMOLYSIS < 15 (0-50); Potassium 4.2 mmol/L (3.4-5.1); Sodium 134 mmol/L (137-145)
[2018-05-14] MEDS: ENOXAPARIN 40 MG/0.4 ML SYRINGE SUBCUT (10:07)
[2018-05-14] MEDS: PANTOPRAZOLE 40 MG VIAL IV (10:07)
--- NOTE | 2018-05-14 10:30 | CM.DANOTE ---
DCP: Case received, EMR reviewed and met with patient. Introduced self and role. DCP template completed with information currently available. Patient is an 82 year old male who admitted yesterday evening to the care of the hospitalist team. PCP: Dr. Siddiqui. Payer: confirmed: Medicare/[employer] [facility]. Patient came to hospital via family vehicle due to abdominal pain. Patient was concerned that he had a bowel obstruction, for he has had this before. He should be getting a surgical consult today. Met with patient, alert and oriented, in room as well. Patient stated, for now, he is on clear liquids, but is feeling a little better. He stated that he is independent at home, and does drive. Lives in [place] with his , Sarah. P: DCP to continue to follow. Will see how he progresses here in hospital. May be having surgery, unknown at this time. Ana Aj RN/Grounding Engineer
[2018-05-14] MEDS: ONDANSETRON 4 MG/2 ML INJ IV (11:23)
--- NOTE | 2018-05-14 13:37 | P.HP_ITS ---
History of Present Illness Date Patient Seen: 05/14/18 Time Patient Seen: 13:26 Chief complaint: thinks he has a bowl obstruction Narrative: Patient is a 82-year-old male well known to me who presents with increasing abdominal pain. Basically started feeling like maybe was constipated. Was having some increase in abdominal discomfort. Did not have any nausea or vomiting. Fevers or chills. Bowel movements were decreased. Maybe a little hard. It was mild patient took some MiraLax seemed to have a bowel movement felt like maybe things were better. Sunday things increasingly got worse along with Sunday the point where is unable to take it at home. Pain was diffuse maybe more left-sided. No radiation. Nothing seemed to make it better or worse. Sometimes felt like he wanted to curl. Crampy pain. Due to this fact and the fact that he has had a previous small bowel obstruction with ?acquired surgery patient came to the hospital. Patient 2 years ago had a pretty significant ischemic bowel up a soda which required surgery and had pretty significant issues with recovery pulmonary snider. Otherwise no significant changes or complaints. Has had no urinary changes. No fevers or chills. No night sweats. No blood in his stool. Has had a little bit of change in stool but otherwise no changes. He has had no difficulty breathing no cough no nausea family has been sick. Past medical history: COPD Hyperlipidemia History of bladder cancer History of prostate cancer History of smoking greater than 40 pack year quit 2 years ago History of liver mass History of kidney mass Past surgical history Pilonidal cyst Double hernia 1996 Right colectomy secondary to polyps 2000 Partial cystectomy 2010 Vasectomy Reactive see implants 2002 Small-bowel resection secondary to volvulus 11/30/2014 Family history dad was not call it, mother of natural causes no big issues. No significant sibling problems. Social history many years, retired [employer] worker Sixteen years I had occasion Habits occasional alcohol no more smoking 2 years ago quit Patient History Medical History Cataract of right eye (Acute) Cyst of buttocks (Acute) Inguinal hernia bilateral, non-recurrent (Acute) Surgical History H/O vasectomy (Acute) Hx of colectomy (Acute) Social History household members: spouse Smoking Status: Never smoker alcohol intake: never Family & Social History Social History: household members spouse Prior Living Arrangements House Safety & Behavioral: Feels Safe in Current Yes Environment Been Physically Hurt or No Threatened By a Person Suicidal Ideation Description None Suicide Plan Description No Plan Tobacco & Substance use: Smoking Status Never smoker alcohol intake never Substance Use Type does not use Meds Home Medications Medication Instructions Recorded Confirmed Type Spiriva with HandiHaler 18 mcg RT 0600 #0 09/18/16 05/13/18 History calcium carbonate [Oyster Shell 500 mg PO DAILY #0 09/18/16 05/13/18 History Calcium 500] cholecalciferol (vitamin D3) 2,000 iu PO DAILY #0 09/18/16 05/13/18 History [Vitamin D3] albuterol sulfate 2 puff INHALATION Q6H PRN 08/31/17 05/13/18 History atorvastatin [Lipitor] 10 mg PO DAILY 08/31/17 05/13/18 History Lactobac. rhamnosus GG-inulin 1 cap PO DAILY 05/13/18 05/13/18 History [Culturelle Probiotics] ascorbic acid (vitamin C) [Vitamin 1 g PO DAILY 05/13/18 05/13/18 History C] magnesium 250 mg PO DAILY 05/13/18 05/13/18 History nzcfzugq-uxs-OV-lycopen-lutein 1 tab PO DAILY 05/13/18 05/13/18 History [Centrum Silver] piroxicam 20 mg PO DAILY PRN 05/13/18 05/13/18 History Allergies Allergy/AdvReac Type Severity Reaction Status Date / Time adhesive AdvReac Mild REDNESS Verified 05/14/18 09:59 naproxen AdvReac Mild TERRIBLE Verified 05/14/18 09:59 GAS PAIN Review of Systems Review of Systems All systems reviewed & are unremarkable except as noted in HPI and below Exam Vital Signs (past 8 hours): - 05/14/18 07:55 05/14/18 11:05 Temperature 98.0 F Pulse Rate 98 H 87 Respiratory Rate 24 20 Blood Pressure 116/54 L 122/62 Pulse Oximetry 91 91 Oxygen Delivery Method Room Air Oxygen Flow Rate 0 Narrative Exam Narrative: Alert elderly male no acute distress lying in bed. Mucous membranes moist. Neck is supple without adenopathy. Lungs diffuse expiratory wheeze with mild decreased breath sounds. Heart regular rate rhythm without murmurs clicks rubs or gallops. Abdomen is mildly distended soft positive bowel sounds somewhat increased in intensity moderate left lower quadrant tenderness no rebound guarding no masses. Extremities without cyanosis clubbing edema. Neurologic exam is completely normal. Psychologically inte ractive appropriate no signs of depression or other problem Objective Labs Result Diagrams: 05/14/18 06:35 05/14/18 06:35 Labs: Laboratory Results - last 24 hr 05/13/18 05/13/18 05/13/18 16:55 16:55 18:13 WBC 8.6 RBC 5.13 Hgb 16.4 Hct 49.2 MCV 95.9 MCH 32.0 MCHC 33.4 RDW 13.0 Plt Count 149 L Neut % (Auto) 79.9 H Lymph % (Auto) 12.4 L [place] % (Auto) 6.7 Eos % (Auto) 0.5 L Baso % (Auto) 0.5 Neut # (Auto) 6800 Lymph # (Auto) 1100 [place] # (Auto) 600 Eos # (Auto) 0 Baso # (Auto) 0 Sodium 134 L Potassium 4.4 Chloride 95 L Carbon Dioxide 27 BUN 13 Creatinine 0.70 Estimated GFR > 60.0 BUN/Creatinine Ratio 18.6 Glucose 111 H Lactate 0.9 Calcium 9.3 Total Bilirubin 1.2 AST 24 ALT 28 Alkaline Phosphatase 69 Total Protein 7.4 Albumin 4.4 Globulin 3.0 Albumin/Globulin Ratio 1.5 Lipase 29 05/14/18 05/14/18 06:35 06:35 WBC 5.7 RBC 4.48 L Hgb 14.3 Hct 42.8 MCV 95.4 MCH 31.9 MCHC 33.4 RDW 12.7 Plt Count 125 L Neut % (Auto) 74.9 Lymph % (Auto) 12.5 L [place] % (Auto) 11.8 Eos % (Auto) 0.7 L Baso % (Auto) 0.1 Neut # (Auto) 4300 Lymph # (Auto) 700 L [place] # (Auto) 700 Eos # (Auto) 0 Baso # (Auto) 0 Sodium 134 L Potassium 4.2 Chloride 102 Carbon Dioxide 25 BUN 10 Creatinine 0.60 L Estimated GFR > 60.0 BUN/Creatinine Ratio 16.7 Glucose 94 Lactate Calcium 7.9 L Total Bilirubin AST ALT Alkaline Phosphatase Total Protein Albumin Globulin Albumin/Globulin Ratio Lipase Assessment & Plan Assessment & Plan narrative: A small-bowel obstruction. Certainly clinically seems to be improved today. Pretty significant obstruction on CT scan patient with a significant history of issues in the past with ischemic bowel I do not think that is going on normal white count and no fever but will consult surgeons just to be sure there is no change I do not think he needs an NG at this time. Will consider clear liquids and follow. May be a few days before he settles down. Certainly do not want to push. Considering how bad the last episode was. COPD. Overall stable. Will continue Spiriva and albuterol. Follow from there. Dehydration. Mild. Continue IV hydration. History of lung cancer stable. History of prostate cancer stable. Disposition. Will be a couple days to see how he does. Depending on what surgeon recommends may be able to slowly increase his diet but will take at least probably 72 hr before we can get things settled completely down. Patient understands questions answered Time Spent With Patient Time with patient: 25 - 35 minutes Quality VTE Deep Vein Thrombosis/Pulmonary Embolism Present on Admission: No
--- NOTE | 2018-05-14 14:12 | PM.CN ---
History of Present Illness Date Patient Seen: 05/14/18 Time Patient Seen: 10:00 Chief complaint: thinks he has a bowl obstruction Reason for consult: Small-bowel obstruction Requesting provider: Jose Siddiqui Narrative: 82-year-old male well known to me and [facility] from prior laparotomies, bowel resection for ischemic bowel, and left upper lobectomy for primary lung cancer who was actually seen in the office last week for follow-up of his lung surgery and presented to the emergency department yesterday with complaints of progressive abdominal pain and distention. He was actually doing quite well at his follow-up visit last week. However in the last 24 hr or so he has had progressive abdominal distention, nausea, and decreased bowel function. No vomiting. However his appetite has been suppressed due to the distention and nausea. He is now having some crampy abdominal pain diffusely. Passed a small amount of flatus in the lung puller hours today but none since. Last bowel movement was yesterday but describes this as small caliber and volume. Overall he feels as if this is consistent with his prior episodes of bowel obstruction. No fever or chills. No dysuria or hematuria. [facility] Medical History Cataract of right eye (Acute) Cyst of buttocks (Acute) Inguinal hernia bilateral, non-recurrent (Acute) Surgical History H/O vasectomy (Acute) Hx of colectomy (Acute) Social History household members: spouse Smoking Status: Never smoker alcohol intake: never Social History household members: spouse Smoking Status: Never smoker alcohol intake: never Meds Home Medications Medication Instructions Recorded Confirmed Type Spiriva with HandiHaler 18 mcg RT 0600 #0 09/18/16 05/13/18 History calcium carbonate [Oyster Shell 500 mg PO DAILY #0 09/18/16 05/13/18 History Calcium 500] cholecalciferol (vitamin D3) 2,000 iu PO DAILY #0 09/18/16 05/13/18 History [Vitamin D3] albuterol sulfate 2 puff INHALATION Q6H PRN 08/31/17 05/13/18 History atorvastatin [Lipitor] 10 mg PO DAILY 08/31/17 05/13/18 History Lactobac. rhamnosus GG-inulin 1 cap PO DAILY 05/13/18 05/13/18 History [Culturelle Probiotics] ascorbic acid (vitamin C) [Vitamin 1 g PO DAILY 05/13/18 05/13/18 History C] magnesium 250 mg PO DAILY 05/13/18 05/13/18 History izdsddqf-rwe-OQ-lycopen-lutein 1 tab PO DAILY 05/13/18 05/13/18 History [Centrum Silver] piroxicam 20 mg PO DAILY PRN 05/13/18 05/13/18 History Allergies Allergy/AdvReac Type Severity Reaction Status Date / Time adhesive AdvReac Mild REDNESS Verified 05/14/18 09:59 naproxen AdvReac Mild TERRIBLE Verified 05/14/18 09:59 GAS PAIN Review of Systems Review of Systems All systems reviewed & are unremarkable except as noted in HPI and below Exam Vital Signs (past 8 hours): - 05/14/18 07:55 05/14/18 11:05 Temperature 98.0 F Pulse Rate 98 H 87 Respiratory Rate 24 20 Blood Pressure 116/54 L 122/62 Pulse Oximetry 91 91 Oxygen Delivery Method Room Air Oxygen Flow Rate 0 Narrative Exam Narrative: Elderly male in no acute distress. Alert oriented x3. is at the bedside for my entire visit. No fever since admission. No tachycardia. Blood pressure normal. Adequate urine output Has some audible wheezes consistent with his known COPD. Abdomen is distended and tympanitic. Well-healed surgical scars. No obvious hernias. He is diffusely mildly tender but certainly with no guarding or rebound. No obvious masses. No ascites. Extremities show no clubbing or cyanosis Objective Labs Result Diagrams: 05/14/18 06:35 05/14/18 06:35 Labs: Laboratory Results - last 24 hr 05/13/18 05/13/18 05/13/18 16:55 16:55 18:13 WBC 8.6 RBC 5.13 Hgb 16.4 Hct 49.2 MCV 95.9 MCH 32.0 MCHC 33.4 RDW 13.0 Plt Count 149 L Neut % (Auto) 79.9 H Lymph % (Auto) 12.4 L [place] % (Auto) 6.7 Eos % (Auto) 0.5 L Baso % (Auto) 0.5 Neut # (Auto) 6800 Lymph # (Auto) 1100 [place] # (Auto) 600 Eos # (Auto) 0 Baso # (Auto) 0 Sodium 134 L Potassium 4.4 Chloride 95 L Carbon Dioxide 27 BUN 13 Creatinine 0.70 Estimated GFR > 60.0 BUN/Creatinine Ratio 18.6 Glucose 111 H Lactate 0.9 Calcium 9.3 Total Bilirubin 1.2 AST 24 ALT 28 Alkaline Phosphatase 69 Total Protein 7.4 Albumin 4.4 Globulin 3.0 Albumin/Globulin Ratio 1.5 Lipase 29 05/14/18 05/14/18 06:35 06:35 WBC 5.7 RBC 4.48 L Hgb 14.3 Hct 42.8 MCV 95.4 MCH 31.9 MCHC 33.4 RDW 12.7 Plt Count 125 L Neut % (Auto) 74.9 Lymph % (Auto) 12.5 L [place] % (Auto) 11.8 Eos % (Auto) 0.7 L Baso % (Auto) 0.1 Neut # (Auto) 4300 Lymph # (Auto) 700 L [place] # (Auto) 700 Eos # (Auto) 0 Baso # (Auto) 0 Sodium 134 L Potassium 4.2 Chloride 102 Carbon Dioxide 25 BUN 10 Creatinine 0.60 L Estimated GFR > 60.0 BUN/Creatinine Ratio 16.7 Glucose 94 Lactate Calcium 7.9 L Total Bilirubin AST ALT Alkaline Phosphatase Total Protein Albumin Globulin Albumin/Globulin Ratio Lipase I have personally reviewed his CT scan of the abdomen and pelvis done yesterday. He has multiple dilated loops of small bowel with air-fluid levels. No free air. No pneumatosis. Transition point appears to be distal. No significant fluid in the abdomen or pelvis. 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 He has no evidence of mesenteric ischemia or significant acidosis. No evidence of infectious complications. No evidence of perforation. At this point we will proceed with conservative measures including bowel rest and IV fluid resuscitation. I advised him that he may very well require nasogastric tube insertion if he has ongoing nausea or if he begins to have vomiting in conjunction with lack of bowel function and progressive distention. Pain is currently well controlled on present regimen. No indication for surgical intervention at this time. 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 If it appeared that he would require laparotomy following failure of all non operative conservative measures that he understands that such operation would need to be done under the care of a surgery team at a tertiary center. Particularly his postoperative care would be quite complicated and most likely will involve significant ICU care. Hopefully none of this will be necessary and he will resolve spontaneously. If he does not show signs of progression then I would recommend nasogastric tube insertion to help facilitate small-bowel follow-through study as well which he may require this admission. I discussed all this with him and his at length. All questions were answered to the patient's satisfaction, and he voiced understanding. We will continue to follow him this admission.
--- NOTE | 2018-05-14 14:19 | P.CONS_ITS ---
History of Present Illness Date Patient Seen: 05/14/18 Time Patient Seen: 10:00 Chief complaint: thinks he has a bowl obstruction Reason for consult: Small-bowel obstruction Requesting provider: Jose Siddiqui Narrative: 82-year-old male well known to me and [facility] from prior laparotomies, bowel resection for ischemic bowel, and left upper lobectomy for primary lung cancer who was actually seen in the office last week for follow-up of his lung surgery and presented to the emergency department yesterday with complaints of progressive abdominal pain and distention. He was actually doing quite well at his follow-up visit last week. However in the last 24 hr or so he has had progressive abdominal distention, nausea, and decreased bowel function. No vomiting. However his appetite has been suppressed due to the distention and nausea. He is now having some crampy abdominal pain diffusely. Passed a small amount of flatus in the lab rn hours today but none since. Last bowel movement was yesterday but describes this as small caliber and volume. Overall he feels as if this is consistent with his prior episodes of bowel obstruction. No fever or chills. No dysuria or hematuria. [facility] Medical History Cataract of right eye (Acute) Cyst of buttocks (Acute) Inguinal hernia bilateral, non-recurrent (Acute) Surgical History H/O vasectomy (Acute) Hx of colectomy (Acute) Social History household members: spouse Smoking Status: Never smoker alcohol intake: never Social History household members: spouse Smoking Status: Never smoker alcohol intake: never Meds Home Medications Medication Instructions Recorded Confirmed Type Spiriva with HandiHaler 18 mcg RT 0600 #0 09/18/16 05/13/18 History calcium carbonate [Oyster Shell 500 mg PO DAILY #0 09/18/16 05/13/18 History Calcium 500] cholecalciferol (vitamin D3) 2,000 iu PO DAILY #0 09/18/16 05/13/18 History [Vitamin D3] albuterol sulfate 2 puff INHALATION Q6H PRN 08/31/17 05/13/18 History atorvastatin [Lipitor] 10 mg PO DAILY 08/31/17 05/13/18 History Lactobac. rhamnosus GG-inulin 1 cap PO DAILY 05/13/18 05/13/18 History [Culturelle Probiotics] ascorbic acid (vitamin C) [Vitamin 1 g PO DAILY 05/13/18 05/13/18 History C] magnesium 250 mg PO DAILY 05/13/18 05/13/18 History pnkcjljw-wlb-SU-lycopen-lutein 1 tab PO DAILY 05/13/18 05/13/18 History [Centrum Silver] piroxicam 20 mg PO DAILY PRN 05/13/18 05/13/18 History Allergies Allergy/AdvReac Type Severity Reaction Status Date / Time adhesive AdvReac Mild REDNESS Verified 05/14/18 09:59 naproxen AdvReac Mild TERRIBLE Verified 05/14/18 09:59 GAS PAIN Review of Systems Review of Systems All systems reviewed & are unremarkable except as noted in HPI and below Exam Vital Signs (past 8 hours): - 05/14/18 07:55 05/14/18 11:05 Temperature 98.0 F Pulse Rate 98 H 87 Respiratory Rate 24 20 Blood Pressure 116/54 L 122/62 Pulse Oximetry 91 91 Oxygen Delivery Method Room Air Oxygen Flow Rate 0 Narrative Exam Narrative: Elderly male in no acute distress. Alert oriented x3. is at the bedside for my entire visit. No fever since admission. No tachycardia. Blood pressure normal. Adequate urine output Has some audible wheezes consistent with his known COPD. Abdomen is distended and tympanitic. Well-healed surgical scars. No obvious hernias. He is diffusely mildly tender but certainly with no guarding or rebound. No obvious masses. No ascites. Extremities show no clubbing or cyanosis Objective Labs Result Diagrams: 05/14/18 06:35 05/14/18 06:35 Labs: Laboratory Results - last 24 hr 05/13/18 05/13/18 05/13/18 16:55 16:55 18:13 WBC 8.6 RBC 5.13 Hgb 16.4 Hct 49.2 MCV 95.9 MCH 32.0 MCHC 33.4 RDW 13.0 Plt Count 149 L Neut % (Auto) 79.9 H Lymph % (Auto) 12.4 L [place] % (Auto) 6.7 Eos % (Auto) 0.5 L Baso % (Auto) 0.5 Neut # (Auto) 6800 Lymph # (Auto) 1100 [place] # (Auto) 600 Eos # (Auto) 0 Baso # (Auto) 0 Sodium 134 L Potassium 4.4 Chloride 95 L Carbon Dioxide 27 BUN 13 Creatinine 0.70 Estimated GFR > 60.0 BUN/Creatinine Ratio 18.6 Glucose 111 H Lactate 0.9 Calcium 9.3 Total Bilirubin 1.2 AST 24 ALT 28 Alkaline Phosphatase 69 Total Protein 7.4 Albumin 4.4 Globulin 3.0 Albumin/Globulin Ratio 1.5 Lipase 29 05/14/18 05/14/18 06:35 06:35 WBC 5.7 RBC 4.48 L Hgb 14.3 Hct 42.8 MCV 95.4 MCH 31.9 MCHC 33.4 RDW 12.7 Plt Count 125 L Neut % (Auto) 74.9 Lymph % (Auto) 12.5 L [place] % (Auto) 11.8 Eos % (Auto) 0.7 L Baso % (Auto) 0.1 Neut # (Auto) 4300 Lymph # (Auto) 700 L [place] # (Auto) 700 Eos # (Auto) 0 Baso # (Auto) 0 Sodium 134 L Potassium 4.2 Chloride 102 Carbon Dioxide 25 BUN 10 Creatinine 0.60 L Estimated GFR > 60.0 BUN/Creatinine Ratio 16.7 Glucose 94 Lactate Calcium 7.9 L Total Bilirubin AST ALT Alkaline Phosphatase Total Protein Albumin Globulin Albumin/Globulin Ratio Lipase I have personally reviewed his CT scan of the abdomen and pelvis done yesterday. He has multiple dilated loops of small bowel with air-fluid levels. No free air. No pneumatosis. Transition point appears to be distal. No significant fluid in the abdomen or pelvis. 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 He has no evidence of mesenteric ischemia or significant acidosis. No evidence of infectious complications. No evidence of perforation. At this point we will proceed with conservative measures including bowel rest and IV fluid resuscitation. I advised him that he may very well require nasogastric tube insertion if he has ongoing nausea or if he begins to have vomiting in conjunction with lack of bowel function and progressive distention. Pain is currently well controlled on present regimen. No indication for surgical intervention at this time. 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 If it appeared that he would require laparotomy following failure of all non operative conservative measures that he understands that such operation would need to be done under the care of a [facility] [place] [facility] [place] team at a tertiary center. Particularly his postoperative care would be quite complicated and most likely will involve significant ICU care. Hopefully none of this will be necessary and he will resolve spontaneously. If he does not show signs of progression then I would recommend nasogastric tube insertion to help facilitate small-bowel follow-through study as well which he may require this admission. I discussed all this with him and his at length. All questions were answered to the patient's satisfaction, and he voiced understanding. We will continue to follow him this admission.
--- NOTE | 2018-05-14 14:58 | PC.NURSE ---
GI: Feels better this afternoon. BT's are present more active now and has been passing flatus and did have a sm bm. Did get a dose of zofran and morphine earlier. Helpful and was able to walk in hallways this afternoon. Spouse at bedside most of shift. Denies any problems. Cont w/poc.
[2018-05-14] MEDS: ATORVASTATIN 10 MG TABLET PO (20:20)
--- NOTE | 2018-05-14 22:15 | PC.NURSE ---
Pt resting quietly throughtout evening. Denies discomfort/ Ambulated in hallway w/staff. IVF NS infusing into the LFA via pump @ 150cc/hr w/o incidence. Call light w/in reach, call s appropriately for needs. Continue w/plan of care.
--- NOTE | 2018-05-14 23:46 | PC.NURSE ---
Addendum entered by Halina Rosenbaum R.N. 05/15/18 06:53: Noted blood glucose on lab draw was only 50 this morning so provided with juice. Will check with MD regarding changing IVF. Original Note: Addendum entered by Halina Rosenbaum R.N. 05/15/18 06:50: Slept most of shift. Denies pain this morning. States he continues to pass flatus and denies nausea. Original Note: Patient is alert and oriented. Breath sounds diminished with scattered expiratory rhonchi. RA sat 82% when first wakened so placed on oxygen at 2L/min per NC with sat now at 93%. HRR. Denies nausea. Abdomen remains distended but has hypoactive BT and is passing flatus; tender to deeper palpation in bilateral lower quadrants. Denies dysuria, frequency or urgency; using urinal to void. Independent with mobility. Denies pain. Fall risk score is moderate; calls for assist appropriately. rooming in.
[2018-05-15] VITALS (11 sets, daily range): BP systolic 118–142; BP diastolic 48–79; PULSE 64–89; RESP 12–24; TEMP 36.4–37.2; O2SAT 91–96
--- NOTE | 2018-05-15 | DI.RAD.S_ITS ---
PROCEDURE: XR ACUTE ABDOMEN SERIES INDICATIONS: small bowel obstruction TECHNIQUE: One view chest and two views of the abdomen were acquired. COMPARISON: [facility], CT, CT ABDOMEN PELVIS W CON, 05/13/2018, 17:56. [facility], CT, CT CHEST W CON, 02/26/2018, 11:52. [facility], CR, ABDOMEN ACUTE SERIES, 06/29/2016, 11:21. FINDINGS: Surgical changes and devices: Prostate seed implants are seen. Laparoscopic anchors are seen, consistent with groin hernia repair. Chest: Lungs are clear. The cardiac contours are within normal limits. The aorta demonstrates calcification and tortuosity. There is a small left-sided pleural effusion. No pneumoperitoneum. Abdomen: Mild prominence of gas-filled loops of small bowel can be seen. Gas can be within the colon. No suspicious calcifications. Visualized solid organ contours appear normal. Bones: No suspicious bony lesions. Moderate dextroconvex thoracolumbar scoliosis is seen. Age-appropriate bony degenerative changes are seen. IMPRESSION: The previously seen small bowel obstruction is believed to have resolved, with a small amount of residual ileus. Small left-sided pleural effusion. Postoperative and degenerative changes are seen. Dictated by: Nguyễn Rees M.D. on 05/15/2018 at 8:02 Approved by: Nguyễn Rees M.D. on 05/15/2018 at 8:05
--- NOTE | 2018-05-15 | DI.RAD.S_ITS ---
PROCEDURE: FL SMALL BOWEL FOLLOW THROUGH INDICATIONS: sbo COMPARISON: [facility], CR, XR ACUTE ABDOMEN SERIES, 05/15/2018, 4:57. [facility], CT, CT ABDOMEN PELVIS W CON, 05/13/2018, 17:56. [facility], RF, SMALL BOWEL FOLLOW THROUGH, 06/30/2016, 8:36. FINDINGS: KUB: Preprocedural casing blower film demonstrates multiple loops of gaseous distended bowel. Nasogastric tube tip and side-port project over the upper midabdomen in the expected location of the stomach. Suture material projects over the left lower quadrant of the abdomen. There are moderate multilevel degenerative changes of the lumbar spine. Postsurgical changes of prior hernia repair and prostate radiation seed therapy are noted projecting over the lower pelvis. There is small left pleural effusion. Small bowel: Ingested oral contrast material passes through the small bowel and reaches the colon within 45 minutes. Small bowel loops remain dilated, measuring up to 6.0 cm in greatest diameter. No convincing strictures, intraluminal masses, or extrinsic mass effects are noted. There are postsurgical changes of prior bowel resection. The terminal ileum cannot be clearly identified on this exam. IMPRESSION: There is residual dilatation of the small bowel but with ingested oral contrast material reaching the colon; this suggests the presence of residual ileus, with a partial bowel obstruction thought less likely. Dictated by: Rudy Maher M.D. on 05/15/2018 at 15:26 Approved by: Rudy Maher M.D. on 05/15/2018 at 15:38
[2018-05-15] MEDS: SODIUM CHLORIDE 0.9% 1,000 ML 150 ML IV (01:00)
[2018-05-15 06:26] LABS: Add Manual Diff / Slide Review NO; Basophils Absolute Auto 0 /uL (0-100); Basophils Percent Auto 0.4 % (0-2); Eosinophils Absolute Auto 100 /uL (0-450); Eosinophils Percent Auto 2.8 % (2-4); Hematocrit 39.4 % (41-53); Lymphocytes Absolute Auto 800 /uL (1100-4500); Lymphocytes Percent Auto 17.2 % (25-40); Mean Corpuscular Hemoglobin 32.2 PG (26-34); Mean Corpuscular Volume 97.7 fL (80-100); Monocytes Absolute Auto 500 /uL (0-900); Monocytes Percent Auto 9.9 % (3-14); Neutrophils Absolute Auto 3200 /uL (1500-7000); Neutrophils Percent Auto 69.7 % (50-75); Platelet Count 108 X10^3/uL (150-400); Red Blood Cell Count 4.04 X10^6/uL (4.5-5.9); Red Cell Distribution Width 12.8 % (11.6-14.8); White Blood Cell Count 4.6 X10^3/uL (4.5-11.0)
[2018-05-15 06:28] LABS: BUN Creatinine Ratio 16.7 (6-22); Blood Urea Nitrogen 10 mg/dL (9-20); Calcium 7.7 mg/dL (8.4-10.2); Carbon Dioxide 22 mmol/L (22-32); Chloride 106 mmol/L (98-107); Estimated Glomerular Filt Rate > 60.0 mL/min (>60); Glucose 50 mg/dL (80-110); HEMOLYSIS < 15 (0-50); Potassium 4.2 mmol/L (3.4-5.1); Sodium 136 mmol/L (137-145)
[2018-05-15] MEDS: DEXTROSE 5%-0.9% NS 1,000 ML 150 ML IV ×2 (07:28→22:00)
[2018-05-15] MEDS: PANTOPRAZOLE 40 MG VIAL IV (08:41)
[2018-05-15] MEDS: ENOXAPARIN 40 MG/0.4 ML SYRINGE SUBCUT (08:41)
--- NOTE | 2018-05-15 09:11 | PM.PN.1 ---
Subjective Date Patient Seen: 05/15/18 Time Patient Seen: 09:11 Interval history: Patient passing small amount of flatus only. No bowel movement. Remains distended. No significant nausea or vomiting. No dysuria or hematuria. Denies any significant abdominal pain. Now on oxygen overnight with minimal dyspnea. Exam Vital Signs (past 8 hours): - 05/15/18 04:44 05/15/18 07:28 Temperature 98.3 F 97.6 F Pulse Rate 89 78 Respiratory Rate 19 18 Blood Pressure 120/48 L 127/73 Pulse Oximetry 91 91 Oxygen Delivery Method Nasal Cannula Oxygen Flow Rate 2 Narrative Exam Narrative: Elderly male sitting comfortably in bed in no acute distress. Alert oriented x3. Remains afebrile and hemodynamically stable Chest shows distant breath sounds bilaterally consistent with COPD. Few wheezes. Abdomen remains distended and tympanitic throughout. He is otherwise soft and essentially nontender. No guarding or rebound. Few bowel sounds. Objective Labs Result Diagrams: 05/15/18 06:02 05/15/18 06:02 Labs: Laboratory Results - last 24 hr 05/15/18 05/15/18 06:02 06:02 WBC 4.6 RBC 4.04 L Hgb 13.0 L Hct 39.4 L MCV 97.7 MCH 32.2 MCHC 33.0 RDW 12.8 Plt Count 108 L Neut % (Auto) 69.7 Lymph % (Auto) 17.2 L [place] % (Auto) 9.9 Eos % (Auto) 2.8 Baso % (Auto) 0.4 Neut # (Auto) 3200 Lymph # (Auto) 800 L [place] # (Auto) 500 Eos # (Auto) 100 Baso # (Auto) 0 Sodium 136 L Potassium 4.2 Chloride 106 Carbon Dioxide 22 BUN 10 Creatinine 0.60 L Estimated GFR > 60.0 BUN/Creatinine Ratio 16.7 Glucose 50 L Calcium 7.7 L I have personally reviewed his abdominal series done this morning. He continues to have some dilated loops of small bowel with some air-fluid levels throughout although they do appear improved compared to the CT [facility] film done 2 days ago. No free air. He does have left pleural effusion and fluid in the fissure consistent with pulmonary edema. Assessment & Plan Assessment & Plan narrative: 82-year-old male with partial small bowel obstruction. I do not believe that this is completely resolved however. He does not have an ileus. He is fluid overloaded with some pulmonary edema manifesting as some dyspnea and transient hypoxia. I have slow down the IV fluids. At this point I believe he would benefit from small-bowel follow-through. I discussed this with him today. This will require nasogastric tube decompression. He is agreeable to such. Hopefully small-bowel follow-through may be both diagnostic and therapeutic. Fortunately has no evidence of significant intra-abdominal bowel compromise or infectious process necessitating surgical intervention. Again, I am hopeful that he will respond to non operative management as above. All questions were answered to his satisfaction, and he voiced understanding. Orders were written. Case reviewed with the attending nurse. Quality VTE Deep Vein Thrombosis/Pulmonary Embolism Present on Admission: No
--- NOTE | 2018-05-15 12:18 | PM.PN.1 ---
Subjective Date Patient Seen: 05/15/18 Time Patient Seen: 12:18 Interval history: Patient having a little more trouble breathing. Feels it is secondary to the NG tube which was placed. Has been bothering him quite a bit. No cough. No chest pain. Abdominal pain is about the same. Not a lot worse. Exam Vital Signs (past 8 hours): - 05/15/18 04:44 05/15/18 07:28 05/15/18 08:00 Temperature 98.3 F 97.6 F Pulse Rate 89 78 Respiratory Rate 19 18 Blood Pressure 120/48 L 127/73 Pulse Oximetry 91 91 92 05/15/18 11:10 Temperature 97.7 F Pulse Rate 64 Respiratory Rate 18 Blood Pressure 118/57 L Pulse Oximetry 92 Oxygen Delivery Method Nasal Cannula Oxygen Flow Rate 0 Narrative Exam Narrative: Alert male mildly fatigued no acute distress. Lungs with decreased breath sounds occasional wheeze. Heart regular rate and rhythm. Abdomen is soft mildly distended mild diffuse tenderness no rebound guarding no masses. Objective Labs Result Diagrams: 05/15/18 06:02 05/15/18 06:02 Labs: Laboratory Results - last 24 hr 05/15/18 05/15/18 06:02 06:02 WBC 4.6 RBC 4.04 L Hgb 13.0 L Hct 39.4 L MCV 97.7 MCH 32.2 MCHC 33.0 RDW 12.8 Plt Count 108 L Neut % (Auto) 69.7 Lymph % (Auto) 17.2 L [place] % (Auto) 9.9 Eos % (Auto) 2.8 Baso % (Auto) 0.4 Neut # (Auto) 3200 Lymph # (Auto) 800 L [place] # (Auto) 500 Eos # (Auto) 100 Baso # (Auto) 0 Sodium 136 L Potassium 4.2 Chloride 106 Carbon Dioxide 22 BUN 10 Creatinine 0.60 L Estimated GFR > 60.0 BUN/Creatinine Ratio 16.7 Glucose 50 L Calcium 7.7 L Assessment & Plan Assessment & Plan narrative: COPD. Patient slightly worse today. On his usual medication and I do not think other than oxygen there is anything we need to do at this time. Does not appear to be infected. I think this is mostly just an irritation with the NG tube but will watch closely. Re-evaluate if needed. Small bowel obstruction. Seems to be slightly improved on x-ray NG tube in place. Appreciate surgeons help. Small-bowel follow-through today. Does not appear to be infected. Does not appear to be with surgical abdomen at this time will continue bowel rest and NG as per surgeons and follow. Dehydration. Doing better. Decreased IV rate will follow re-evaluate in a.m.. History of prostate cancer stable. History of lung cancer stable. DVT prophylaxis on Lovenox. GI prophylaxis not needed at this time. Disposition. Hopefully with x-ray showing improvement small-bowel follow-through look good. Left to watch his lung status suspect will be here a few more days. Will see how things go. Quality VTE Deep Vein Thrombosis/Pulmonary Embolism Present on Admission: No
--- NOTE | 2018-05-15 12:34 | PC.NURSE ---
1030 Pt abd distended, bowel tones +. NG tube placed L nare, set up to LIS. clear secretions/output noted, Pt did have ice chips earlier. Pt berta well. Pt is very cooperative, denies pain. 1200 Pt gone to xray dept via w/c for follow thru exam.
--- NOTE | 2018-05-15 14:04 | PC.NURSE ---
1345 Pt returned to room post SBFT, NGT intact, Pt up to BRP for flatus & + BM.
[2018-05-15] MEDS: ALBUTEROL HFA 60 PUFF/8 GM INH INH (15:02)
--- NOTE | 2018-05-15 17:04 | PM.PN.1 ---
Subjective Date Patient Seen: 05/15/18 Time Patient Seen: 17:00 Interval history: Patient having numerous bowel movements since the x-ray test was done. His abdomen feels better. Exam Vital Signs (past 8 hours): - 05/15/18 11:10 05/15/18 15:30 Temperature 97.7 F 98.0 F Pulse Rate 64 86 Respiratory Rate 18 24 Blood Pressure 118/57 L 118/68 Pulse Oximetry 92 96 Fraction of Inspired Oxygen 21 Oxygen Delivery Method Room Air Oxygen Flow Rate 2 Narrative Exam Narrative: Not very distended. Soft. NG is in place but it is not functioning and putting out very little. Objective Labs Result Diagrams: 05/15/18 06:02 05/15/18 06:02 Labs: Laboratory Results - last 24 hr 05/15/18 05/15/18 06:02 06:02 WBC 4.6 RBC 4.04 L Hgb 13.0 L Hct 39.4 L MCV 97.7 MCH 32.2 MCHC 33.0 RDW 12.8 Plt Count 108 L Neut % (Auto) 69.7 Lymph % (Auto) 17.2 L [place] % (Auto) 9.9 Eos % (Auto) 2.8 Baso % (Auto) 0.4 Neut # (Auto) 3200 Lymph # (Auto) 800 L [place] # (Auto) 500 Eos # (Auto) 100 Baso # (Auto) 0 Sodium 136 L Potassium 4.2 Chloride 106 Carbon Dioxide 22 BUN 10 Creatinine 0.60 L Estimated GFR > 60.0 BUN/Creatinine Ratio 16.7 Glucose 50 L Calcium 7.7 L Assessment & Plan Assessment & Plan narrative: Patient appears to have an ileus versus a partial obstruction. The contrast goes rapidly through the small bowel Into the colon. the NG does not appear to be functioning well and therefore I removed it. I told him to be strictly NPO however. No ice. Quality VTE Deep Vein Thrombosis/Pulmonary Embolism Present on Admission: No
--- NOTE | 2018-05-15 18:50 | PC.NURSE ---
Addendum entered by Yola Fernandez R.N. 05/15/18 22:03: Per Dr. Malagon, No atorvastatin med given this brittany. Strict NPO, no sips or ice chips Original Note: 1700- Dr Solorio DC'd NGT. BT+, denies nausea, NPO status NO ice chips, provided pt with toothette and tiny amount water in cup, and mouth moisture, 1PA BSC with 500mL loose stool. Pt A/O x3, 96% 2L nc, LS to right side clear, left side mid/lower lung removed 2014, denies SOB, albuterol INH PRN. Bed alarm on. in room.
--- NOTE | 2018-05-15 23:51 | PC.NURSE ---
Patient is alert and oriented. Breath sounds CTA with diminished sounds in ROSENDA due to hx lobectomy. On oxygen at 2L/min per NC with sat of 96% (sat dropped to 82% last night when asleep). HRR with BP of 142/64. Denies nausea. Abdomen less distended tonight and softer. Passing flatus and reported loose stools following SBFT earlier today. Denies dysuria, frequency or urgency; uses urinal. Turns self in bed and is up to [facility] independently. Fall risk score is moderate; reminded to call for assistance if feeling weak or dizzy or any unusual symptoms. Denies pain. rooming in.
[2018-05-16] VITALS (9 sets, daily range): BP systolic 117–145; BP diastolic 51–65; PULSE 56–68; RESP 12–20; TEMP 36.2–37.2; O2SAT 91–97
--- NOTE | 2018-05-16 | DI.RAD.S_ITS ---
PROCEDURE: XR ACUTE ABDOMEN SERIES INDICATIONS: f/u sbft. evaluate GI tract TECHNIQUE: One view chest and two views of the abdomen were acquired. COMPARISON: [facility], CT, CT ABDOMEN PELVIS W CON, 05/13/2018, 17:56. [facility], RF, FL SMALL BOWEL FOLLOW THROUGH, 05/15/2018, 12:06. [facility], CR, XR ACUTE ABDOMEN SERIES, 05/15/2018, 4:57. FINDINGS: Surgical changes and devices: Prostate seed implants are seen. Laparoscopic anchors are seen, consistent prior bilateral inguinal hernia repair. Chest: Lungs are clear. Heart size is normal. There is blunting of the left costophrenic angle. No pneumoperitoneum. Abdomen: The oral contrast is now seen primarily within the colon. There is no complete small bowel obstruction. No suspicious calcifications. Visualized solid organ contours appear normal. Bones: No suspicious bony lesions. Mild dextroconvex scoliotic curvature is seen. Age-appropriate bony degenerative changes are seen. IMPRESSION: The previously given oral contrast can be seen primarily within the colon, confirming no complete small bowel obstruction. Left pleural effusion. Dextroconvex scoliosis and degenerative change. Postoperative changes are seen in the pelvis. Dictated by: Nguyễn Rees M.D. on 05/16/2018 at 10:12 Approved by: Nguyễn Rees M.D. on 05/16/2018 at 10:14
[2018-05-16] MEDS: TIOTROPIUM BROMIDE 18 MCG INHALER INH (05:35)
[2018-05-16 07:10] LABS: Add Manual Diff / Slide Review NO; Basophils Absolute Auto 0 /uL (0-100); Basophils Percent Auto 0.3 % (0-2); Eosinophils Absolute Auto 100 /uL (0-450); Eosinophils Percent Auto 1.4 % (2-4); Hematocrit 37.6 % (41-53); Hemoglobin 12.7 g/dL (13.5-17.5); Lymphocytes Absolute Auto 800 /uL (1100-4500); Lymphocytes Percent Auto 17.5 % (25-40); Mean Corpuscular HGB Conc 33.8 % (30-36); Mean Corpuscular Hemoglobin 32.2 PG (26-34); Mean Corpuscular Volume 95.5 fL (80-100); Monocytes Absolute Auto 500 /uL (0-900); Monocytes Percent Auto 9.8 % (3-14); Neutrophils Absolute Auto 3300 /uL (1500-7000); Platelet Count 115 X10^3/uL (150-400); Red Blood Cell Count 3.94 X10^6/uL (4.5-5.9); Red Cell Distribution Width 12.5 % (11.6-14.8); White Blood Cell Count 4.6 X10^3/uL (4.5-11.0)
[2018-05-16 07:21] LABS: BUN Creatinine Ratio 8.3 (6-22); Blood Urea Nitrogen 5 mg/dL (9-20); Calcium 8.1 mg/dL (8.4-10.2); Carbon Dioxide 26 mmol/L (22-32); Chloride 110 mmol/L (98-107); Estimated Glomerular Filt Rate > 60.0 mL/min (>60); Glucose 100 mg/dL (80-110); HEMOLYSIS < 15 (0-50); Potassium 3.5 mmol/L (3.4-5.1); Sodium 141 mmol/L (137-145)
[2018-05-16] MEDS: ENOXAPARIN 40 MG/0.4 ML SYRINGE SUBCUT (08:24)
[2018-05-16] MEDS: PANTOPRAZOLE 40 MG VIAL IV (08:25)
--- NOTE | 2018-05-16 08:57 | P.PN_ITS ---
Subjective Date Patient Seen: 05/16/18 Time Patient Seen: 08:54 Interval history: Surgery removed the NG last night after evidence of improved bowel function. But with instructions to be strictly NPO. Patient feels better with all that on no pain has had continued bowel movements although little soft. Breathing also is fine he has not been on oxygen he says but has been breathing pretty comfortably. Would like to see things progressing a little more quickly, little frustrated by that but no other concerns. Exam Vital Signs (past 8 hours): - 05/16/18 04:50 05/16/18 05:36 05/16/18 07:45 Temperature 97.7 F 97.8 F Pulse Rate 67 68 58 L Respiratory Rate 13 16 16 Blood Pressure 117/51 L 120/60 Pulse Oximetry 97 93 96 Fraction of Inspired Oxygen 21 Oxygen Delivery Method Nasal Cannula Oxygen Flow Rate 2 Narrative Exam Narrative: Fairly healthy appearing sitting up in bed no acute distress HEENT unremarkable neck is benign chest is clear heart regular without murmur abdomen is soft nontender nondistended fairly normal bowel tones extremities benign neurologically benign Objective Labs Result Diagrams: 05/16/18 06:15 05/16/18 06:15 Labs: Laboratory Results - last 24 hr 05/16/18 05/16/18 06:15 06:15 WBC 4.6 RBC 3.94 L Hgb 12.7 L Hct 37.6 L MCV 95.5 MCH 32.2 MCHC 33.8 RDW 12.5 Plt Count 115 L Neut % (Auto) 71.0 Lymph % (Auto) 17.5 L [place] % (Auto) 9.8 Eos % (Auto) 1.4 L Baso % (Auto) 0.3 Neut # (Auto) 3300 Lymph # (Auto) 800 L [place] # (Auto) 500 Eos # (Auto) 100 Baso # (Auto) 0 Sodium 141 Potassium 3.5 Chloride 110 H Carbon Dioxide 26 BUN 5 L Creatinine 0.60 L Estimated GFR > 60.0 BUN/Creatinine Ratio 8.3 Glucose 100 Calcium 8.1 L Assessment & Plan Assessment & Plan narrative: 1. Small-bowel obstruction or ileus, seems improved. Now off NG. Will defer to General surgery for diet orders and any other changes. 2. Volume depletion seems well replete this time. 3. COPD and acute respiratory failure largely resolved at this time not requiring any oxygen. 4. Other issues stable. Plan: Will continue to follow labs again defer to General surgery for diet and other changes. Time Spent With Patient Time with patient: 25 - 35 minutes Quality VTE Deep Vein Thrombosis/Pulmonary Embolism Present on Admission: No
[2018-05-16] MEDS: DEXTROSE 5%-0.9% NS 1,000 ML 25 ML IV (11:42)
--- NOTE | 2018-05-16 12:05 | P.PN_ITS ---
Subjective Date Patient Seen: 05/16/18 Time Patient Seen: 12:01 Interval history: Patient had copious liquid stool and flatus following small- bowel follow-through yesterday afternoon. No nausea or vomiting. He is thirsty and somewhat hungry and wishes to eat. No dysuria or hematuria. Feels much better and is subjectively less distended today. However, continues to have some subjective abdominal distention. No pain. Exam Vital Signs (past 8 hours): - 05/16/18 04:50 05/16/18 05:36 05/16/18 07:40 Temperature 97.7 F Pulse Rate 67 68 Respiratory Rate 13 16 Blood Pressure 117/51 L Pulse Oximetry 97 93 92 05/16/18 07:45 Temperature 97.8 F Pulse Rate 58 L Respiratory Rate 16 Blood Pressure 120/60 Pulse Oximetry 96 Fraction of Inspired Oxygen 21 Oxygen Delivery Method Room Air Oxygen Flow Rate 2 Narrative Exam Narrative: Thin male in no acute distress. Alert oriented x3. Resting comfortably in bed. Remains afebrile and hemodynamically stable Adequate urine output Diminished breath sounds but less crackles and wheezes. He is stable on room air currently. Abdomen remains mildly distended but much less so today. He is much softer as well with absolutely no tenderness. Minimally tympanitic. No masses. Extremities show no clubbing or cyanosis Objective Labs Result Diagrams: 05/16/18 06:15 05/16/18 06:15 Labs: Laboratory Results - last 24 hr 05/16/18 05/16/18 06:15 06:15 WBC 4.6 RBC 3.94 L Hgb 12.7 L Hct 37.6 L MCV 95.5 MCH 32.2 MCHC 33.8 RDW 12.5 Plt Count 115 L Neut % (Auto) 71.0 Lymph % (Auto) 17.5 L [place] % (Auto) 9.8 Eos % (Auto) 1.4 L Baso % (Auto) 0.3 Neut # (Auto) 3300 Lymph # (Auto) 800 L [place] # (Auto) 500 Eos # (Auto) 100 Baso # (Auto) 0 Sodium 141 Potassium 3.5 Chloride 110 H Carbon Dioxide 26 BUN 5 L Creatinine 0.60 L Estimated GFR > 60.0 BUN/Creatinine Ratio 8.3 Glucose 100 Calcium 8.1 L Small-bowel follow-through from yesterday evening is reviewed. Abdominal x-ray from today is also reviewed. No free air. He had normal transit time and 45 min yesterday with contrast in the colon at that time. However, he continues to have some contrast throughout the colon today but no significant dilated small bowel loops. No small bowel air-fluid levels. Lung sales are clearer today as well. Assessment & Plan Assessment & Plan narrative: 82-year-old male with resolving partial small bowel obstruction. He is much improved. No indications for surgical intervention and given his improvement we will allow clear liquid diet. However, will add magnesium citrate for a single dose today to assist with evacuation of the contrast in the colon. Out of bed as much as tolerated. Decrease IV fluid rate to KVO. If he is stable on clear liquid diet today then potentially advanced to low residue diet tomorrow. I suspect he will be here in the hospital at least another 48 hr or so. All the above discussed with the patient at length. All questions answered to his satisfaction, and he voiced understanding. Case reviewed with the attending nurse. Orders written. Quality VTE Deep Vein Thrombosis/Pulmonary Embolism Present on Admission: No
[2018-05-16] MEDS: MAGNESIUM CITRATE 300 ML SOLUTION PO (12:07)
[2018-05-16] MEDS: ALBUTEROL HFA 60 PUFF/8 GM INH INH (18:18)
[2018-05-16] MEDS: ATORVASTATIN 10 MG TABLET PO (21:03)
--- NOTE | 2018-05-16 21:16 | PC.NURSE ---
Evening Shift Summary The patient is alert and oriented x3. The patient has been on a clear liquid diet and is denies nausea or pain. Has had 3 small liquid BM's during shift. When this chief nursing executive assessed the abdomen it was soft and slightly distended. This chief nursing executive heard bowel tones were heard in 2 quadrants. The patient requested to walk on the floor and this chief nursing executive walked with him. When the patient returned to the room, he was a little short of breath and began to cough. The patient requested his albuterol and after albuterol was administered his breathing returned to normal. Bed is low, locked, and call light within reach.
[2018-05-17] VITALS (12 sets, daily range): BP systolic 118–130; BP diastolic 58–80; PULSE 56–75; RESP 14–21; TEMP 36.3–37.1; O2SAT 90–93
--- NOTE | 2018-05-17 00:22 | PC.NURSE ---
Addendum entered by Halina Rosenbaum R.N. 05/17/18 06:20: Had total 200cc urine/stool out this shift. Stool is watery, yellow brown in color. Denies any pain this morning and states he has been passing a great deal of flatus during the night. Original Note: Patient is alert and oriented. Breath sounds coarse with expected diminished breath sounds in left UL due to hx lobectomy; RA sat 93%. He has chronic, intermittent, moist sounding cough due to chronic COPD with reported small amounts clear sputum. HRR but bradycardic at 58 bpm. Denies nausea. BT present and abdomen soft. States he hasn't passed flatus since yesterday but still having watery stools. Denies dysuria, frequency or urgency. Independent with bed mobility and getting up to BSC independently. Denies pain but still a little tender in lower abdominal quads with deeper palpation. Fall risk score is moderate; calls for assistance appropriately.
[2018-05-17 07:02] LABS: Add Manual Diff / Slide Review NO; Basophils Absolute Auto 0 /uL (0-100); Basophils Percent Auto 0.4 % (0-2); Eosinophils Absolute Auto 100 /uL (0-450); Eosinophils Percent Auto 1.9 % (2-4); Hematocrit 38.6 % (41-53); Lymphocytes Absolute Auto 1000 /uL (1100-4500); Lymphocytes Percent Auto 18.2 % (25-40); Mean Corpuscular HGB Conc 33.7 % (30-36); Mean Corpuscular Hemoglobin 32.2 PG (26-34); Mean Corpuscular Volume 95.5 fL (80-100); Monocytes Absolute Auto 600 /uL (0-900); Monocytes Percent Auto 10.4 % (3-14); Neutrophils Absolute Auto 3700 /uL (1500-7000); Neutrophils Percent Auto 69.1 % (50-75); Platelet Count 123 X10^3/uL (150-400); Red Blood Cell Count 4.04 X10^6/uL (4.5-5.9); Red Cell Distribution Width 12.3 % (11.6-14.8); White Blood Cell Count 5.3 X10^3/uL (4.5-11.0)
[2018-05-17 07:13] LABS: BUN Creatinine Ratio 6.7 (6-22); Blood Urea Nitrogen 4 mg/dL (9-20); Carbon Dioxide 29 mmol/L (22-32); Chloride 106 mmol/L (98-107); Estimated Glomerular Filt Rate > 60.0 mL/min (>60); Glucose 95 mg/dL (80-110); HEMOLYSIS < 15 (0-50); Potassium 3.5 mmol/L (3.4-5.1); Sodium 139 mmol/L (137-145)
[2018-05-17] MEDS: TIOTROPIUM BROMIDE 18 MCG INHALER INH (07:19)
--- NOTE | 2018-05-17 08:22 | P.PN_ITS ---
Subjective Date Patient Seen: 05/17/18 Time Patient Seen: 08:20 Interval history: Patient denies any nausea or vomiting. No abdominal pain. Continues to pass flatus and liquid stool. Feels subjectively much less distended. No chest pain or shortness of breath. Ambulating without diffic ulty. No dysuria. No subjective fever or chills. Exam Vital Signs (past 8 hours): - 05/17/18 04:20 05/17/18 07:19 Temperature 98.7 F Pulse Rate 71 56 L Respiratory Rate 21 16 Blood Pressure 118/58 L Pulse Oximetry 90 L 91 Fraction of Inspired Oxygen 21 Oxygen Delivery Method Room Air Oxygen Flow Rate 0 Narrative Exam Narrative: Elderly male sitting comfortably in bed in no acute distress. Alert oriented x3. He is in good spirits. Chest is clear but shows distant breath sounds. No obvious crackles today. Abdomen is much less distended but still mildly so. He is completely soft however. Completely nontender. No masses. No guarding or rebound. Active bowel sounds throughout. Extremities show no clubbing or cyanosis Objective Labs Result Diagrams: 05/17/18 06:33 05/17/18 06:33 Labs: Laboratory Results - last 24 hr 05/17/18 05/17/18 06:33 06:33 WBC 5.3 RBC 4.04 L Hgb 13.0 L Hct 38.6 L MCV 95.5 MCH 32.2 MCHC 33.7 RDW 12.3 Plt Count 123 L Neut % (Auto) 69.1 Lymph % (Auto) 18.2 L [place] % (Auto) 10.4 Eos % (Auto) 1.9 L Baso % (Auto) 0.4 Neut # (Auto) 3700 Lymph # (Auto) 1000 L [place] # (Auto) 600 Eos # (Auto) 100 Baso # (Auto) 0 Sodium 139 Potassium 3.5 Chloride 106 Carbon Dioxide 29 BUN 4 L Creatinine 0.60 L Estimated GFR > 60.0 BUN/Creatinine Ratio 6.7 Glucose 95 Calcium 8.0 L Assessment & Plan Assessment & Plan narrative: 82-year-old male with resolving partial small bowel obstruction. We will advance him to a mechanical soft diet today. Low residue as well. I discussed this with him. Saline lock the IV today. Continue to ambulate aggressively. Add a daily dose of MiraLax which she takes at home. No need for any further radiographic studies unless he has clinical changes. If he tolerates a diet continues to have bowel function within the next 24 hr and plan discharge home at that time. All questions were answered to his satisfaction, and he voiced understanding. Orders written. Quality VTE Deep Vein Thrombosis/Pulmonary Embolism Present on Admission: No
--- NOTE | 2018-05-17 08:31 | P.PN_ITS ---
Subjective Date Patient Seen: 05/17/18 Time Patient Seen: 08:27 Interval history: Patient seen in follow-up with small-bowel obstruction and COPD. Patient tolerating full liquids yesterday. Surgeons riding for increased diet today. Has been having bowel movements. No abdominal pain. No fevers or chills. Otherwise feeling well. Breathing is better now that he does not have NG tube in and is feeling quite a bit better from there. No other changes. Exam Vital Signs (past 8 hours): - 05/17/18 04:20 05/17/18 07:19 Temperature 98.7 F Pulse Rate 71 56 L Respiratory Rate 21 16 Blood Pressure 118/58 L Pulse Oximetry 90 L 91 Fraction of Inspired Oxygen 21 Oxygen Delivery Method Room Air Oxygen Flow Rate 0 Narrative Exam Narrative: Alert male in no acute distress Mucous membranes moist. Neck supple without adenopathy. Lungs without wheeze, decreased breath sounds throughout Heart regular rate and rhythm. Abdomen was soft positive bowel sounds minimal tenderness diffuse. Extremities without cyanosis clubbing edema. Psychologically interactive smiling appropriate Objective Labs Result Diagrams: 05/17/18 06:33 05/17/18 06:33 Labs: Laboratory Results - last 24 hr 05/17/18 05/17/18 06:33 06:33 WBC 5.3 RBC 4.04 L Hgb 13.0 L Hct 38.6 L MCV 95.5 MCH 32.2 MCHC 33.7 RDW 12.3 Plt Count 123 L Neut % (Auto) 69.1 Lymph % (Auto) 18.2 L [place] % (Auto) 10.4 Eos % (Auto) 1.9 L Baso % (Auto) 0.4 Neut # (Auto) 3700 Lymph # (Auto) 1000 L [place] # (Auto) 600 Eos # (Auto) 100 Baso # (Auto) 0 Sodium 139 Potassium 3.5 Chloride 106 Carbon Dioxide 29 BUN 4 L Creatinine 0.60 L Estimated GFR > 60.0 BUN/Creatinine Ratio 6.7 Glucose 95 Calcium 8.0 L Assessment & Plan Assessment & Plan narrative: Small bowel obstruction. As per surgeons. Seems to be slowly improving. Workup has been negative. Recheck white count tomorrow. COPD. Actually quite a bit better today. No real wheeze but still decreased breath sounds probably back to baseline. No requirement for oxygen. Will continue usual inhalers and follow from there. Dehydration. Resolved. Follow-up the as we increase diet. History of prostate cancer. Stable History of lung cancer stable. DVT prophylaxis on Lovenox. GI prophylaxis not needed at this time. Disposition. Doing much better. Expect if tolerates p.o. home tomorrow. Quality VTE Deep Vein Thrombosis/Pulmonary Embolism Present on Admission: No
[2018-05-17] MEDS: ENOXAPARIN 40 MG/0.4 ML SYRINGE SUBCUT (09:01)
[2018-05-17] MEDS: PANTOPRAZOLE 40 MG VIAL IV (09:01)
[2018-05-17] MEDS: POLYETHYLENE GLYCOL 3350 17 GM POWD.PACK PO (09:01)
[2018-05-17] MEDS: ALBUTEROL HFA 60 PUFF/8 GM INH INH (09:04)
--- NOTE | 2018-05-17 17:33 | PC.NURSE ---
1700: Pt. sitting in chair eating dinner, very friendly, tolerating food well. Pt. has expiratory wheezing. Ambulating on his own. Pt. ready for discharge tomorrow.
[2018-05-17] MEDS: SODIUM CHLORIDE 0.9% FLUSH 10 ML IV (21:36)
[2018-05-17] MEDS: ATORVASTATIN 10 MG TABLET PO (21:37)
[2018-05-18 05:05] VITALS: BP 136/67; PULSE 71; RESP 16; TEMP 36.6; O2SAT 90
[2018-05-18 06:24] LABS: Add Manual Diff / Slide Review NO; Basophils Absolute Auto 100 /uL (0-100); Eosinophils Absolute Auto 100 /uL (0-450); Eosinophils Percent Auto 2.5 % (2-4); Hematocrit 38.3 % (41-53); Hemoglobin 13.4 g/dL (13.5-17.5); Lymphocytes Absolute Auto 1100 /uL (1100-4500); Lymphocytes Percent Auto 20.4 % (25-40); Mean Corpuscular Volume 94.5 fL (80-100); Monocytes Absolute Auto 500 /uL (0-900); Monocytes Percent Auto 10.6 % (3-14); Neutrophils Absolute Auto 3400 /uL (1500-7000); Neutrophils Percent Auto 65.5 % (50-75); Platelet Count 126 X10^3/uL (150-400); Red Blood Cell Count 4.06 X10^6/uL (4.5-5.9); Red Cell Distribution Width 12.2 % (11.6-14.8); White Blood Cell Count 5.2 X10^3/uL (4.5-11.0)
[2018-05-18 06:31] LABS: Blood Urea Nitrogen 6 mg/dL (9-20); Carbon Dioxide 30 mmol/L (22-32); Chloride 103 mmol/L (98-107); Estimated Glomerular Filt Rate > 60.0 mL/min (>60); Glucose 92 mg/dL (80-110); HEMOLYSIS < 15 (0-50); Potassium 3.7 mmol/L (3.4-5.1); Sodium 136 mmol/L (137-145)
--- NOTE | 2018-05-18 06:52 | PC.NURSE ---
pt AO, pleasant and receptive to care. Requested we get all of our work done at once so that he can get a good amount of sleep. O2 is 91% RA at baseline due to a left upper lobectomy. IND in room. Denying pain. Motivated to go home. Left AC locked.
[2018-05-18 07:55] VITALS: O2SAT 90
[2018-05-18] MEDS: TIOTROPIUM BROMIDE 18 MCG INHALER INH (08:01)
[2018-05-18] MEDS: PANTOPRAZOLE 40 MG VIAL IV (08:02)
[2018-05-18] MEDS: ENOXAPARIN 40 MG/0.4 ML SYRINGE SUBCUT (08:02)
[2018-05-18] MEDS: SODIUM CHLORIDE 0.9% FLUSH 10 ML IV (08:02)
[2018-05-18 09:00] VITALS: BP 110/56; PULSE 83; RESP 18; TEMP 36.3; O2SAT 93
--- NOTE | 2018-05-18 09:38 | P.DS_ITS ---
History of Present Illness Chief complaint: thinks he has a bowl obstruction Narrative: Patient is a 82-year-old male well known to me who presents with increasing abdominal pain. Basically started feeling like maybe was constipated. Was having some increase in abdominal discomfort. Did not have any nausea or vomiting. Fevers or chills. Bowel movements were decreased. Maybe a little hard. It was mild patient took some MiraLax seemed to have a bowel movement felt like maybe things were better. Sunday things increasingly got worse along with Sunday the point where is unable to take it at home. Pain was diffuse maybe more left-sided. No radiation. Nothing seemed to make it better or worse. Sometimes felt like he wanted to curl. Crampy pain. Due to this fact and the fact that he has had a previous small bowel obstruction with ?acquired surgery patient came to the hospital. Patient 2 years ago had a pretty significant ischemic bowel up a soda which required surgery and had pretty significant issues with recovery pulmonary snider. Otherwise no significant changes or complaints. Has had no urinary changes. No fevers or chills. No night sweats. No blood in his stool. Has had a little bit of change in stool but otherwise no changes. He has had no difficulty breathing no cough no nausea family has been sick. 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 No significant sibling problems. Social history many years, retired [employer] worker Sixteen years I had occasion Habits occasional alcohol no more smoking 2 years ago quit Discharge Providers Date of admission: 05/13/18 19:24 Discharge Date: 05/18/18 Primary care physician: Jose Siddiqui MD Consults: 05/14/18 08:19 Consult to Physician Routine Comment: Consulting Provider: Justin Self Reason for consultation: sbo Has provider been notified: Yes Discharge provider: Jose Siddiqui MD Summary Discharge Diagnosis: Small bowel obstruction COPD dehydration history of prostate cancer history of lung cancer Hospital Course: patient was brought and admitted placed NPO and with bowel rest. White count was normal exam showed tenderness but not definitive rebound or surgical type abdomen. Surgeons were consulted. Patient was hydrated over the 1st 24 hr and did well. His NG tube was placed on day 1. Pulled on day 2. small-bowel follow-through showed unremarkable small bowel with ileus. Patient was kept on bowel rest for 1 more day and then slowly fed and did extremely well. Appreciate surgical consult. No other significant change. Patient with some hypoxia on day 2 for his COPD. Mostly secondary to irritation from NG tube. He will return to his usual treatment and went from there. oxygen was used over the 24 hr. Then discontinued he was normal on discharge. Dehydration. Found to be dehydrated and rehydrated over the 1st 36 hr. Began taking p.o. and was doing well. No further changes. History of lung cancer. Stable. History of prostate cancer. Stable. No UE addressing this admission Status at Discharge Cognitive/behavioral status at discharge: totally normal Functional status at discharge: independent ambulation Overall status at discharge: patient is back to baseline Time Spent with Patient Less than 30 minutes Exam Vital Signs (past 8 hours): - 05/18/18 05:05 05/18/18 07:55 Temperature 97.9 F Pulse Rate 71 Respiratory Rate 16 Blood Pressure 136/67 Pulse Oximetry 90 L 90 L Fraction of Inspired Oxygen 21 Oxygen Delivery Method Room Air Oxygen Flow Rate 0 Narrative Exam Narrative: alert male smiling interactive no acute distress. Mucous membranes moist. Neck supple without adenopathy. Lungs are clear but decreased breath sounds. Heart regular rate and rhythm without murmurs clicks rubs or gallops. Abdomen is soft but mildly distended but nontender. No masses no rebound guarding. Extremities without cyanosis clubbing edema neurologic exam is normal Objective Labs Result Diagrams: 05/18/18 06:08 05/18/18 06:08 Labs: Laboratory Results - last 24 hr 05/18/18 05/18/18 06:08 06:08 WBC 5.2 RBC 4.06 L Hgb 13.4 L Hct 38.3 L MCV 94.5 MCH 33.0 MCHC 35.0 RDW 12.2 Plt Count 126 L Neut % (Auto) 65.5 Lymph % (Auto) 20.4 L [place] % (Auto) 10.6 Eos % (Auto) 2.5 Baso % (Auto) 1.0 Neut # (Auto) 3400 Lymph # (Auto) 1100 [place] # (Auto) 500 Eos # (Auto) 100 Baso # (Auto) 100 Sodium 136 L Potassium 3.7 Chloride 103 Carbon Dioxide 30 BUN 6 L Creatinine 0.60 L Estimated GFR > 60.0 BUN/Creatinine Ratio 10.0 Glucose 92 Calcium 8.0 L Discharge Plan Discharge Plan Patient Disposition: Home Discharge comment: patient to call sunday about appointment with this week Discharge Med Rec/Prescriptions Prescriptions: Continued Spiriva with HandiHaler 18 MCG capsule, w/inhalation device 18 mcg RT 0600 Qty: 0 RF: 0 cholecalciferol (vitamin D3) [Vitamin D3] 2,000 UNIT capsule 2,000 iu PO DAILY Qty: 0 RF: 0 calcium carbonate [Oyster Shell Calcium 500] 500 MG tablet 500 mg PO DAILY Qty: 0 RF: 0 atorvastatin [Lipitor] 10 mg Tablet 10 mg PO DAILY RF: 0 albuterol sulfate 90 mcg/actuation Aerosol Powdr Breath Activated 2 puff INHALATION Q6H PRN (Reason: Shortness Of Breath) RF: 0 ascorbic acid (vitamin C) [Vitamin C] 1,000 mg Tablet 1 g PO DAILY RF: 0 magnesium 250 mg Tablet 250 mg PO DAILY RF: 0 piroxicam 20 mg Capsule 20 mg PO DAILY PRN (Reason: stiffness) RF: 0 Centrum Silver 0.4-300-250 mg-mcg-mcg Tablet 1 tab PO DAILY RF: 0 Culturelle Probiotics 10 billion cell -200 mg Capsule 1 cap PO DAILY RF: 0 Follow up/Referrals: Jose Siddiqui MD [Primary Care Provider] - 3-5 Days (call sunday to get appointment) Provider Discharge Instructions Diet comment: low residual soft for now Activity: as tolerated Skin/Wound/Dressing Care Report to your healthcare provider any signs of infection, such as:: chills, fever, night sweats and increased pain Discharge Data Primary Care Provider: Jose Siddiqui Attending Provider: Lis Rasmussen Admit Date/Time: 05/13/18 19:24 Quality VTE Deep Vein Thrombosis/Pulmonary Embolism Present on Admission: No
--- NOTE | 2018-05-18 10:05 | PM.PN.1 ---
Subjective Date Patient Seen: 05/18/18 Time Patient Seen: 10:05 Interval history: Patient with no new complaints today. No pain. No fever or chills. No nausea or vomiting. No complaints of abdominal distention. No significant chest pain or shortness of breath. Ambulating without difficulty. Continues to pass flatus and stool. Tolerated a soft diet yesterday without issue. Exam Vital Signs (past 8 hours): - 05/18/18 05:05 05/18/18 07:55 05/18/18 09:00 Temperature 97.9 F 97.4 F L Pulse Rate 71 83 Respiratory Rate 16 18 Blood Pressure 136/67 110/56 L Pulse Oximetry 90 L 90 L 93 Fraction of Inspired Oxygen 21 Oxygen Delivery Method Room Air Oxygen Flow Rate 0 Narrative Exam Narrative: Patient is sitting comfortably in bedside chair in no acute distress. Alert oriented x3. He is in good spirits. He is anxious to be discharged home this morning. No audible wheezes Abdomen remains mildly tympanitic but not particularly distended. He is completely soft however. Nontender. No masses. Objective Labs Result Diagrams: 05/18/18 06:08 05/18/18 06:08 Labs: Laboratory Results - last 24 hr 05/18/18 05/18/18 06:08 06:08 WBC 5.2 RBC 4.06 L Hgb 13.4 L Hct 38.3 L MCV 94.5 MCH 33.0 MCHC 35.0 RDW 12.2 Plt Count 126 L Neut % (Auto) 65.5 Lymph % (Auto) 20.4 L Nicollet % (Auto) 10.6 Eos % (Auto) 2.5 Baso % (Auto) 1.0 Neut # (Auto) 3400 Lymph # (Auto) 1100 Nicollet # (Auto) 500 Eos # (Auto) 100 Baso # (Auto) 100 Sodium 136 L Potassium 3.7 Chloride 103 Carbon Dioxide 30 BUN 6 L Creatinine 0.60 L Estimated GFR > 60.0 BUN/Creatinine Ratio 10.0 Glucose 92 Calcium 8.0 L Assessment & Plan Assessment & Plan narrative: 82-year-old male with resolved partial small bowel obstruction now doing well. At this point he may continue soft diet as tolerated. Activity as tolerated. Continue his usual medications. We discussed bowel regimen at home. From a surgical perspective he requires no further intervention and may be discharged home today. Follow up with Dr. Siddiqui as scheduled. May follow up with surgery as needed. All questions were answered to his satisfaction, and he voiced understanding. Quality VTE Deep Vein Thrombosis/Pulmonary Embolism Present on Admission: No
--- NOTE | 2018-05-18 11:12 | PC.NURSE ---
discharge pt denies pain this shift. PIV removed prior to d/c. d/c instructions provided to pt. aware to make apt with Dr Siddiqui for next week. will contact MD with any additional questions or concerns. Pt left in w/c with and RAJENDRA. Escorted by RN in w/c to car. Pt states he took all belongings with him.
== END 2018-05-18 11:05 | disposition home or self-care (01) | DRG 390 ==
LOC: ED 18:09 → AC 19:24
PROVIDERS: Emergency Medicine; Family Medicine; Admitting Provider Family Medicine; Emergency Provider Emergency Medicine; PCP Family Medicine; Visit Provider Family Medicine
DX: K56.51 Intestinal adhesions [bands], with partial obstruction (principal); J44.9 Chronic obstructive pulmonary disease, unspecified; E86.0 Dehydration; R09.02 Hypoxemia; T85.9XXA Unspecified complication of internal prosthetic device, implant and graft, initial encounter; Z85.46 Personal history of malignant neoplasm of prostate; Z85.51 Personal history of malignant neoplasm of bladder; Z85.118 Personal history of other malignant neoplasm of bronchus and lung
CPT/HCPCS: 36415; 36591; 74022; 74177; 74250; 80048; 80053; 83605; 83690; 85025; 94640; 94760; 96360; 96361; 99231; 99232; 99281; 99285; C9113; J1650; J2270; J2405; Q9967

== ENCOUNTER → 2018-08-20 11:57 | Outpatient (CLI) | payer MEDICARE, BC, SELFPAY ==
--- NOTE | 2018-08-20 12:25 | DI.CT.S_ITS ---
PROCEDURE: CT CHEST W CON INDICATIONS: lung cancer TECHNIQUE: After the administration of intravenous contrast, 5 mm thick sections acquired from the pulmonary apices to the posterior costophrenic angles. 7 mm thick coronal and sagittal MIP reformats were acquired. For radiation dose reduction, the following was used: automated exposure control, adjustment of mA and/or kV according to patient size. COMPARISON: [facility], CT, CT CHEST W CON, 02/26/2018, 11:52. [facility], CT, CT CHEST W CON, 08/29/2017, 12:07. FINDINGS: Image quality: Excellent. Lungs and pleura: No acute air space opacities. Severe COPD is present, there is also evidence of probable prior partial left pneumonectomy given the smaller lung volume on the left and pleural scarring. No pleural effusions or pneumothorax. Central and peripheral airways are patent and normal in caliber. Mediastinum: Heart size is normal. No pericardial effusion. No mediastinal or hilar adenopathy by size criteria. Thoracic aorta and central pulmonary arteries are normal in size. Esophagus is normal in caliber. No hiatal hernia. Bones and chest wall: No suspicious bony lesions. No vertebral body compression fractures. No axillary or supraclavicular adenopathy by size criteria. Thyroid gland appears normal where well visualized. Abdomen: Visualized upper abdominal solid organs appear normal. Upper abdominal bowel loops are normal in caliber. IMPRESSION: Severe COPD, postoperative changes consistent with partial left pneumonectomy. Lung and pleural scarring on the left is seen inferiorly. No recurrent mass lesion or pleural effusion has developed. No mediastinal or hilar adenopathy is found. No evidence of recurrent malignancy. Dictated by: Alberto Wang M.D. on 08/20/2018 at 15:35 Approved by: Alberto Wang M.D. on 08/20/2018 at 15:37
== END ==
PROVIDERS: PCP Family Medicine; Visit Provider Nurse Practitioner Gerontology
DX: C34.90 Malignant neoplasm of unspecified part of unspecified bronchus or lung (principal); J44.9 Chronic obstructive pulmonary disease, unspecified
CPT/HCPCS: 71260; Q9967

== ENCOUNTER → 2018-09-10 10:58 | Outpatient (CLI) | payer MEDICARE, BC, SELFPAY ==
[2018-09-10 13:11] LABS: Prostate Specific Antigen 0.287 ng/mL (0.10-4.00)
== END ==
PROVIDERS: PCP Family Medicine; Visit Provider Urology
DX: Z85.46 Personal history of malignant neoplasm of prostate (principal)
CPT/HCPCS: 36415; 84153

== ENCOUNTER → 2019-01-06 08:59 | Outpatient (CLI) | payer MEDICARE, BC, SELFPAY ==
--- NOTE | 2019-01-06 | DI.ECHO.S_ITS ---
[place] +---------+ Hospital +---------+ : : [address] : : : : [id number] : : : : Phone: [phone] Echocardiogram Report + + :Name: WENDY EDEN Study Date: 01/06/2019 Height: 67 in : :[facility] Weight: 141 lb : : Gender: Male BSA: 1.7 m2 : :: 1935 Age: 83 yrs BP: 124/50 mmHg: :Reason For Study: Murmur : : Performed By: Leighann Campa : :Referring: WENDY HERRON : + + Interpretation Summary The left ventricle is mildly dilated. There is normal left ventricular wall thickness. The ejection fraction is estimated to be 60-65%. Borderline right ventricular enlargement. There is slight calcification extending into the subvalvular apparatus. The right ventricular systolic pressure is estimated to be at least 26 mmHg based on an estimated right atrial pressure of 3 mm Hg. Procedure: A two-dimensional transthoracic echocardiogram with color flow and Doppler was performed. The study quality was technically adequate. There is no prior echocardiogram noted for this patient. The patient was in normal sinus rhythm during the exam. Left Ventricle: The left ventricle is mildly dilated. There is normal left ventricular wall thickness. The ejection fraction is estimated to be 60-65%. Left ventricular wall motion is normal. Diastolic function could not be accurately assessed due to contradictory data. Right Ventricle: Borderline right ventricular enlargement. The right ventricular systolic function is normal. Atria: The left atrium is mildly dilated. The right atrium is mildly dilated. The interatrial septum is intact with no evidence for an atrial septal defect. The atrial septum is aneurysmal. Mitral Valve: The mitral valve leaflets appear mildly thickened, but open well. There is slight calcification extending into the subvalvular apparatus. There is mild mitral annular calcification. There is systolic anterior motion of the chordal apparatus. There is no mitral regurgitation noted. Aortic Valve: The aortic valve is trileaflet. The aortic valve opens well. There is moderate aortic regurgitation. Tricuspid Valve: The tricuspid valve is normal in structure and function. There is trace tricuspid regurgitation. The right ventricular systolic pressure is estimated to be at least 26 mmHg based on an estimated right atrial pressure of 3 mm Hg. Pulmonic Valve: The pulmonic valve is normal in structure and function. There is a trace or physiologic amount of pulmonic regurgitation. Great Vessels: The aortic root is moderately dilated. The ascending aorta is mild-moderately enlarged. The aortic arch is normal in size. The IVC is of normal diameter and collapses greater than 50% with a sniff. This suggests a low right atrial pressure of 3 mm Hg. Pericardium/ Pleura There is no pericardial effusion. There is no pleural effusion. MMode/2D Measurements & Calculations LVIDd: 5.9 cm Ao root diam: 4.6 cm LVIDs: 4.0 cm Aortic Jxn: 4.3 cm FS: 32.7 % asc Aorta Diam: 4.3 cm EPSS: 2.3 cm Ao Arch Diam (Prox Trans): 2.5 cm IVSd: 0.94 cm LVPWd: 0.90 cm LV olson. diameter/BSA (cm/m^2): 3.4 LV sys. diameter/BSA (cm/m^2): 2.3 LA dimension: 4.4 cm RA long axis: 5.3 cm LA A2 area: 21.1 cm2 RA area: 21.0 cm2 LA A4 area: 16.7 cm2 RA vol: 70.7 ml LA length (vol): 4.8 cm RA : 40.6 ml/m2 LA vol: 62.2 ml IVC diam: 1.3 cm LA vol index: 35.7 ml/m2 RVDd major: 5.9 cm RVD1 (basal): 3.0 cm RVD2 (mid): 2.8 cm Doppler Measurements & Calculations Ao V2 max: 213.8 cm/sec LVOT Max Keyshawn: 90.9 cm/sec Ao V2 mean: 137.4 cm/sec LV V1 max P.3 mmHg Ao max P.3 mmHg LV V1 VTI: 17.2 cm Ao mean P.0 mmHg sev ratio: 0.40 Ao V2 VTI: 42.7 cm AI P1/2t: 524.9 msec AI dec slope: 254.7 cm/sec2 MV E max keyshawn: 33.6 cm/sec TR max keyshawn: 241.7 cm/sec MV A max keyshawn: 70.5 cm/sec TR max P.4 mmHg MV E/A: 0.48 PA V2 max: 89.2 cm/sec Med Peak E' Keyshawn: 5.1 cm/sec PA V2 mean: 57.3 cm/sec E/E' med: 6.6 PA mean P.6 mmHg Lat Peak E' Keyshawn: 4.3 cm/sec PA Accel Time: 0.17 sec E/E' lat: 7.8 E/e' average: 7.2 MV dec time: 0.36 sec MV P1/2t: 107.5 msec MV 2t max keyshawn: 34.2 cm/sec MVA(2t): 2.0 cm2 Reading Physician:02:08 PM
== END ==
PROVIDERS: PCP Family Medicine; Visit Provider Family Medicine
DX: I35.1 Nonrheumatic aortic (valve) insufficiency (principal); R01.1 Cardiac murmur, unspecified
CPT/HCPCS: 93306

== ENCOUNTER → 2019-02-11 10:02 | Outpatient (CLI) | payer MEDICARE, BC, SELFPAY ==
--- NOTE | 2019-02-11 10:06 | DI.CT.S_ITS ---
PROCEDURE: CT ABDOMEN PELVIS WO/W CON INDICATIONS: surveillance lung cancer painless gross hematuria TECHNIQUE: Optional 5 mm thick noncontrast images acquired from the diaphragm to the symphysis pubis. After the administration of intravenous contrast, 5 mm thick images acquired from the diaphragm to the symphysis pubis after a 10-minute delay. 2 mm thick coronal and sagittal reformats were then performed of the kidneys and ureters. For radiation dose reduction, the following was used: automated exposure control, adjustment of mA and/or kV according to patient size. COMPARISON: [facility], CT, IVP (ABD & PEL WWO CONTRAST), 12/20/2015, 9:19. [facility], CT, THORAX WITH CONTRAST, 08/30/2016, 11:09. [facility], CT, CT CHEST W CON, 08/20/2018, 13:13. [facility], CT, CT ABDOMEN PELVIS WO/W CON, 10/30/2017, 9:48. FINDINGS: Image quality: Excellent. Lung bases: No acute consolidation. Unchanged 2 mm nodule seen in the right lower lobe. Urinary system: Both kidneys are normal in size, without hydronephrosis or nephrolithiasis on pre-contrast images. No perinephric fat stranding. 9 mm hyperdense right parapelvic lesion, possibly hyperdense cyst but is s although technically nonspecific Renal calyces appear normal in morphology when filled with contrast. Opacified portions of both ureters demonstrate normal caliber. Bladder wall thickness is normal. No calcified bladder stones. Prostate brachytherapy seeds noted Other solid organs: Liver is normal in size and enhancement. Gallbladder negative. Biliary system is non dilated. Pancreas enhances normally. Spleen is normal in size and enhancement. No adrenal nodules. Peritoneum and bowel: Bowel loops demonstrate normal wall thickness and caliber. No free fluid or air. Nodes and vessels: No retroperitoneal or mesenteric adenopathy by size criteria. Unchanged prominent retrocrural vessel versus lymph node seen on image 34 series 3 which is grossly unchanged in 08/30/16 Aorta and inferior vena cava are normal in size. Scattered vascular calcifications seen in the aorta. Abdominal wall: No ventral hernias. Pelvis: No pathologic free pelvic fluid. Small bilateral fat containing inguinal hernias. No pelvic adenopathy. Bones: No suspicious bony lesions. No vertebral body compression fractures. Diffuse lumbar spondylosis and facet arthropathy. IMPRESSION: Increased attenuation round lesion in the right parapelvic region, possibly hyperdense cyst, however slight interval increase in size since 10/30/17, and since a more remote study dated 12/20/15. Technically, indolent renal neoplasm cannot be excluded and recommend continued surveillance and clinical management. Elsewhere, no specific visualized etiology for hematuria. No evidence of urinary obstruction Additional chronic and incidental findings as above. Dictated by: Isma Donahue M.D. on 02/11/2019 at 14:00 Approved by: Isma Donahue M.D. on 02/11/2019 at 14:15
[2019-02-11 10:41] LABS: Add Manual Diff / Slide Review NO; Basophils Absolute Auto 0 /uL (0-100); Basophils Percent Auto 0.7 % (0-2); Eosinophils Absolute Auto 100 /uL (0-450); Eosinophils Percent Auto 1.3 % (2-4); Hematocrit 45.5 % (41-53); Hemoglobin 15.7 g/dL (13.5-17.5); Lymphocytes Absolute Auto 1600 /uL (1100-4500); Lymphocytes Percent Auto 22.4 % (25-40); Mean Corpuscular HGB Conc 34.6 % (30-36); Mean Corpuscular Hemoglobin 33.2 PG (26-34); Mean Corpuscular Volume 96.1 fL (80-100); Monocytes Absolute Auto 600 /uL (0-900); Monocytes Percent Auto 8.1 % (3-14); Neutrophils Absolute Auto 4700 /uL (1500-7000); Neutrophils Percent Auto 67.5 % (50-75); Platelet Count 170 X10^3/uL (150-400); Red Blood Cell Count 4.73 X10^6/uL (4.5-5.9); White Blood Cell Count 6.9 X10^3/uL (4.5-11.0)
[2019-02-11 10:50] LABS: Alanine Aminotransferase 15 IU/L (<50); Albumin 4.2 g/dL (3.5-5.0); Albumin Globulin Ratio 1.6 (1.0-2.8); Alkaline Phosphatase 67 U/L (38-126); Aspartate Aminotransferase 24 IU/L (17-59); Bilirubin Total 0.7 mg/dL (0.2-1.3); Blood Urea Nitrogen 12 mg/dL (9-20); Calcium 9.6 mg/dL (8.4-10.2); Carbon Dioxide 34 mmol/L (22-32); Chloride 99 mmol/L (98-107); Estimated Glomerular Filt Rate > 60.0 mL/min (>60); Globulin 2.7 g/dL (1.7-4.1); Glucose 86 mg/dL (80-110); HEMOLYSIS 18 (0-50); Potassium 5.3 mmol/L (3.4-5.1); Sodium 139 mmol/L (137-145); Total Protein 6.9 g/dL (6.3-8.2)
--- NOTE | 2019-02-11 11:08 | DI.CT.S_ITS ---
PROCEDURE: CT CHEST W CON INDICATIONS: surveillance lung cancer TECHNIQUE: After the administration of intravenous contrast, 5 mm thick sections acquired from the pulmonary apices to the posterior costophrenic angles. 1 mm axial lung, 5 mm thick coronal and sagittal reformats and 7 mm axial MIP were acquired. For radiation dose reduction, the following was used: automated exposure control, adjustment of mA and/or kV according to patient size. COMPARISON: [facility], CT, CT CHEST W CON, 08/20/2018, 13:13. FINDINGS: Image quality: Excellent. Lungs and pleura: No acute consolidation. Diffuse scarring/atelectasis. Upper lobe predominant centrilobular emphysema and pleural blebs are seen. Central airway thickening. Postsurgical changes with partial left pneumonectomy and associated volume loss. No pleural effusions or pneumothorax. Unchanged 2 mm nodule seen in the right lung base, image 282 series 3. Mediastinum: Heart size is mildly enlarged. Coronary artery calcifications are present. No pericardial effusion. No mediastinal or hilar adenopathy by size criteria. Mild enlargement of the ascending thoracic aorta which is unchanged, up to 4.4 cm. Esophagus is normal in caliber. No hiatal hernia. Bones and chest wall: No suspicious bony lesions. No vertebral body compression fractures. No axillary or supraclavicular adenopathy by size criteria. Thyroid gland unremarkable. Abdomen: Visualized upper abdominal solid organs appear normal. Upper abdominal bowel loops are normal in caliber. IMPRESSION: Post surgical changes related to partial left pneumonectomy. Diffuse scarring and atelectasis, without specific evidence of recurrent or residual tumor. Dictated by: Isma Donahue M.D. on 02/11/2019 at 13:51 Approved by: Isma Donahue M.D. on 02/11/2019 at 14:00
[2019-02-11 11:21] LABS: Carcinoembryonic Antigen 5.7 ng/mL (0.1-3.0)
== END ==
PROVIDERS: Family Provider Urology; PCP Family Medicine
DX: C34.90 Malignant neoplasm of unspecified part of unspecified bronchus or lung (principal); R31.0 Gross hematuria; J43.2 Centrilobular emphysema; R91.1 Solitary pulmonary nodule; I25.10 Atherosclerotic heart disease of native coronary artery without angina pectoris; I51.7 Cardiomegaly; K40.20 Bilateral inguinal hernia, without obstruction or gangrene, not specified as recurrent; R19.00 Intra-abdominal and pelvic swelling, mass and lump, unspecified site
CPT/HCPCS: 36415; 71260; 74178; 80053; 82378; 85025; Q9967

== ENCOUNTER → 2019-03-04 12:56 | Outpatient (CLI) | payer MEDICARE, BC, SELFPAY | PROVIDERS: Family Provider Urology; PCP Family Medicine; Visit Provider Urology | DX: J44.9 Chronic obstructive pulmonary disease, unspecified (principal) | CPT/HCPCS: 93005; 93010 ==

== ENCOUNTER → 2019-08-12 10:33 | Outpatient (CLI) | payer MEDICARE, BC, SELFPAY ==
--- NOTE | 2019-08-12 10:35 | DI.CT.S_ITS ---
PROCEDURE: CT CHEST W CON INDICATIONS: Lung cancer surveillance TECHNIQUE: After the administration of intravenous contrast, 5 mm thick sections acquired from the pulmonary apices to the posterior costophrenic angles. 1 mm axial lung, 5 mm thick coronal and sagittal reformats and 7 mm axial MIP were acquired. For radiation dose reduction, the following was used: automated exposure control, adjustment of mA and/or kV according to patient size. COMPARISON: [facility], CT, CT ABDOMEN PELVIS W CON, 05/13/2018, 17:56. [facility], CT, CT CHEST W CON, 02/26/2018, 11:52. [facility], CT, CT ABDOMEN PELVIS WO/W CON, 10/30/2017, 9:48. [facility], CT, CT CHEST W CON, 08/29/2017, 12:07. [facility], CT, CT CHEST W CON, 08/20/2018, 13:13. [facility], CT, CT CHEST W CON, 02/11/2019, 11:02. FINDINGS: Image quality: Excellent. Lungs and pleura: Scattered subsegmental atelectasis and/or scarring. There is diffuse bronchiectasis No focal consolidation. Postsurgical changes from prior left partial pneumonectomy. Overall, grossly stable appearance. No pleural effusions or pneumothorax. Mediastinum: Heart size is normal. Coronary artery calcifications are present. No pericardial effusion. No mediastinal or hilar adenopathy by size criteria. Ascending thoracic aorta mildly enlarged measuring 4.2 cm. Esophagus is normal in caliber. No hiatal hernia. Bones and chest wall: No suspicious bony lesions. No vertebral body compression fractures. No axillary or supraclavicular adenopathy by size criteria. Thyroid gland negative. Abdomen: Visualized upper abdominal solid organs appear normal. Upper abdominal bowel loops are normal in caliber. IMPRESSION: Overall, grossly stable examination redemonstrating postsurgical sequela from left partial pneumonectomy. No specific CT evidence for active recurrent or residual tumor Additional chronic and incidental findings as above. Dictated by: Isma Donahue M.D. on 08/12/2019 at 13:19 Approved by: Isma Donahue M.D. on 08/12/2019 at 14:09
== END ==
PROVIDERS: Family Provider Urology; PCP Family Medicine; Referring Provider Family Medicine
DX: C34.90 Malignant neoplasm of unspecified part of unspecified bronchus or lung (principal); I25.10 Atherosclerotic heart disease of native coronary artery without angina pectoris; I77.89 Other specified disorders of arteries and arterioles
CPT/HCPCS: 71260; Q9967

== ENCOUNTER → 2020-02-03 10:24 | Outpatient (CLI) | payer MEDICARE, BC, SELFPAY ==
--- NOTE | 2020-02-03 10:28 | DI.US.S_ITS ---
PROCEDURE: US RENAL COMPLETE INDICATIONS: DISOREDERS OF KIDNEY TECHNIQUE: Real-time scanning was performed of the kidneys and bladder, with image documentation. COMPARISON: [facility], , RENAL COMPLETE, 08/31/2009, 13:37. FINDINGS: Kidneys: Kidneys are normal in size. Right kidney measures 11.7 cm long; left kidney measures 11.3 cm long. Right renal cortical thickness is 1.4 cm; left renal cortical thickness is 1.0 cm. Renal cortical echotexture is normal. No hydronephrosis or nephrolithiasis. No suspicious solid mass lesions. There are several scattered right renal cortical cysts the largest measuring up to 1.7 cm laterally Bladder: Pre-void bladder volume is 119 mL. Post-void residual is 7 mL. Pre-void images demonstrate no intraluminal masses or stones. On pre-void images, bilateral ureteral jets are noted with color Doppler interrogation. (Of note, ureteral jets may not be detectable in up to 25% of cases due to insufficient differences in specific gravity between ureteral and bladder urine). Miscellaneous: No free pelvic fluid. IMPRESSION: No hydronephrosis or nephrolithiasis seen. Several scattered right renal cortical cyst. Normal bladder function. Dictated by: Alberto Wang M.D. on 02/03/2020 at 12:25 Approved by: Alberto Wang M.D. on 02/03/2020 at 12:26
[2020-02-03 13:31] LABS: Prostate Specific Antigen 0.175 ng/mL (0.10-4.00)
== END ==
PROVIDERS: Family Provider Urology; PCP Family Medicine; Referring Provider Urology; Visit Provider Urology
DX: N28.89 Other specified disorders of kidney and ureter (principal); Z85.46 Personal history of malignant neoplasm of prostate; Z12.5 Encounter for screening for malignant neoplasm of prostate
CPT/HCPCS: 36415; 76770; 84153; G0103

== ENCOUNTER → 2020-08-31 12:43 | Outpatient (CLI) | payer MEDICARE, BC, SELFPAY ==
--- NOTE | 2020-08-31 12:43 | DI.CT.S_ITS ---
PROCEDURE: CT CHEST W CON INDICATIONS: f/u lung cancer TECHNIQUE: After the administration of intravenous contrast, 5 mm thick sections acquired from the pulmonary apices to the posterior costophrenic angles. 1 mm axial lung, 5 mm thick coronal and sagittal reformats and 7 mm axial MIP were acquired. For radiation dose reduction, the following was used: automated exposure control, adjustment of mA and/or kV according to patient size. COMPARISON: [facility], CT, CT CHEST W CON, 08/12/2019, 10:44. [facility], CT, CT CHEST W CON, 02/11/2019, 11:02. FINDINGS: Image quality: Excellent. Lungs and pleura: No acute air space opacities. Stable persistent reduced inspiratory volume at the left hemithorax, consistent with partial pneumonectomy in this clinical setting No pleural effusions or pneumothorax. Central and peripheral airways are patent and normal in caliber. Mediastinum: Heart size is normal. No pericardial effusion. No mediastinal or hilar adenopathy by size criteria. Thoracic aorta and central pulmonary arteries are normal in size. Esophagus is normal in caliber. No hiatal hernia. Bones and chest wall: No suspicious bony lesions. No vertebral body compression fractures. No axillary or supraclavicular adenopathy by size criteria. Thyroid gland appears normal where well seen. . Abdomen: Visualized upper abdominal solid organs appear normal. Upper abdominal bowel loops are normal in caliber. IMPRESSION: Mild but stable reduced inspiratory volume of the left hemithorax, as was previously the case, consistent with partial left pneumonectomy. No sign of recurrent mass lesion or development of adenopathy, and no new lesion has developed. Dictated by: Alberto Wang M.D. on 08/31/2020 at 15:13 Approved by: Alberto Wang M.D. on 08/31/2020 at 15:17
== END ==
PROVIDERS: Family Provider Urology; PCP Family Medicine; Referring Provider Internal Medicine Hematology & Oncology; Visit Provider Internal Medicine Hematology & Oncology
DX: C34.90 Malignant neoplasm of unspecified part of unspecified bronchus or lung (principal)
CPT/HCPCS: 71260; Q9967

== ENCOUNTER → 2021-02-28 12:44 | Outpatient (CLI) | payer MEDICARE, BC, SELFPAY ==
--- NOTE | 2021-02-28 | DI.RAD.S_ITS ---
PROCEDURE: XR FINGER RT MIN 2V INDICATIONS: Unspecified subluxation of unspecified finger, initial encou TECHNIQUE: AP hand, 2 views of the 5th finger(s) acquired. COMPARISON: None. FINDINGS: Bones: Tiny avulsion fracture off the volar aspect of the 5th distal phalanx seen on the lateral view. No other fractures. Normal bone alignment. Elsewhere, there is severe joint space loss at the 4th PIP , 3rd DIP, and 1st MCP joints. Soft tissues: No suspicious soft tissue calcifications. Trace periarticular calcification along the 4th PIP and DIP joints medially. IMPRESSION: 1. Possible avulsion fracture off the volar aspect of the 5th DIP. 2. Polyarticular joint space loss. Dictated by: Amy Mckeon M.D. on 02/28/2021 at 17:16 Approved by: Amy Mckeon M.D. on 02/28/2021 at 17:19
== END ==
PROVIDERS: Family Provider Urology; PCP Family Medicine; Referring Provider Family Medicine; Visit Provider Family Medicine
DX: S63.20 Unspecified subluxation of other finger (principal); X58.XXXA Exposure to other specified factors, initial encounter
CPT/HCPCS: 73140

== ENCOUNTER → 2021-06-07 10:34 | Outpatient (CLI) | payer MEDICARE, BC, SELFPAY ==
--- NOTE | 2021-06-07 | DI.MRI.S_ITS ---
PROCEDURE: MR STROKE Pre- and post-contrast brain MRI, non-contrast brain MR angiogram, pre- and postcontrast neck MR angiogram INDICATIONS: Disorientation, unspecified TECHNIQUE: Brain: Noncontrast axial T1 spin echo, axial T2 fast spin echo, sagittal and axial FLAIR, coronal T2 fast spin echo, axial gradient echo, axial diffusion and ADC through the brain. After the administration of contrast, axial 3D VIBE of the cranial vasculature and brain. Brain MRA: Non-contrast 3-D time of flight MR angiogram, with multiple qviklxq-cjxtfgogz-hwkdrkghnc (MIP) reformats performed. Neck MRA: Axial and sagittal TruFISP through the neck. Coronal dynamic MR angiogram during administration of contrast in the arterial and venous phases, with 3-dimenstional lehlrtr-uzypxwgiq-gvdhoyexom (MIP) reformats constructed from subtraction images. COMPARISON: None. FINDINGS: Image quality: Excellent. BRAIN: These images demonstrate a mixed age right cerebral convexity subdural hematoma which extends over the right frontal and parietal lobes measuring greater than 16 cm in length and approximately the 3 cm in maximum thickness. The hematoma has areas of high, intermediate, and low T1/T2 signal intensity indicating that there are blood products of variable age is within the collection. There is moderate overall mass effect manifesting as regional sulcal effacement along with approximately 8 mm right to left midline shift at the level of the septum pellucidum and 3rd ventricle. There is no restricted diffusion to indicate recent ischemia. The major intracranial vascular flow-related signal voids are maintained. There is prxw-vm-kyiimejk global cerebral volume loss and chronic microvascular ischemic change. BRAIN MR ANGIOGRAM: Anterior circulation: No flow-limiting stenosis or occlusion of the intracranial internal carotid arteries, anterior cerebral arteries, or middle cerebral arteries. Posterior circulation: No flow-limiting stenosis of the V4 segments, basilar artery, or posterior cerebral arteries. NECK MR ANGIOGRAM: Carotids: Standard 3 vessel aortic arch anatomy. No flow-limiting stenosis of the carotid arterial circulation of the neck. Posterior circulation: Widely patent and codominant vertebral arteries. Miscellaneous: Subclavian arteries appear patent. Pre-contrast images through the neck show no soft tissue abnormalities. IMPRESSION: BRAIN MRI: Moderate-sized right cerebral convexity subdural hematoma with signal characteristics suggesting that there are both acute and subacute or remote blood products. Findings were discussed with Dr. Rasmussen at time of dictation. BRAIN MR ANGIOGRAM: No hemodynamically significant stenosis of the major intracranial arterial circulation. NECK MR ANGIOGRAM: No hemodynamically significant stenosis of the major extracranial arterial circulation. Dictated by: Ulisses Bingham M.D. on 06/07/2021 at 11:28 Approved by: Ulisses Bingham M.D. on 06/07/2021 at 11:38
== END ==
PROVIDERS: Family Provider Urology; PCP Family Medicine; Referring Provider Family Medicine; Visit Provider Family Medicine
DX: I62.00 Nontraumatic subdural hemorrhage, unspecified (principal); R41.0 Disorientation, unspecified
CPT/HCPCS: 70548; 70553

== ENCOUNTER 2021-06-07 11:23 | Emergency (ER) | payer MEDICARE, BC, SELFPAY ==
[2021-06-07] VITALS (13 sets, daily range): BP systolic 114–144; BP diastolic 55–82; PULSE 60–76; RESP 20–26; TEMP 36.9; O2SAT 90–94; BMI 21.6
--- NOTE | 2021-06-07 11:59 | ED.FALL ---
HPI - Fall General Chief Complaint: Fall Stated Complaint: Disorientation Time Seen by Provider: 06/07/21 11:39 Source: patient Mode of arrival: Wheelchair History of Present Illness HPI Narrative: Patient is an 85-year-old male. Not on anticoagulation. Had a mechanical fall several months ago. Was seen in an emergency department. Had a head CT performed had a laceration repair. Since that time he has had occasional issues with balance. He fell once again approximately 3 weeks ago. He did hit his head. He was not evaluated after that event. Immediately after the event 3 weeks ago he did have issues with balance. He is now walking with a cane. He went to go see his primary doctor. An outpatient MRI was ordered. He was getting that performed today when it was noticed that he did have a subdural hematoma. He denies any headaches. No vision changes. He actually thinks that his balance has improved somewhat over the past couple weeks. Was brought to the emergency department from the MRI suite. Related Data Home Medications Medication Instructions Recorded Confirmed calcium carbonate 500 mg calcium 500 mg PO DAILY #0 09/18/16 09/06/20 (1,250 mg) tablet (Oyster Shell Calcium 500) cholecalciferol (vitamin D3) 50 2,000 iu PO DAILY #0 09/18/16 09/06/20 mcg (2,000 unit) capsule (Vitamin D3) tiotropium bromide 18 mcg capsule 18 mcg RT 0600 #0 09/18/16 09/06/20 with inhalation device (Spiriva with HandiHaler) albuterol sulfate 90 mcg/actuation 2 puff INHALATION Q6H PRN 08/31/17 09/06/20 breath activated powder inhaler atorvastatin 10 mg tablet (Lipitor) 10 mg PO DAILY 08/31/17 09/06/20 Lactobacillus rhamnosus GG 10 1 cap PO DAILY 05/13/18 09/06/20 billion cell-inulin 200 mg capsule ([employer]) ascorbic acid (vitamin C) 1,000 mg 1 g PO DAILY 05/13/18 09/06/20 tablet (Vitamin C) hutjprlp-brs-pfncr acid 0.4 1 tab PO DAILY 05/13/18 09/06/20 mg-lycopene 300 mcg-lutein 250 mcg tablet (Centrum Silver) piroxicam 20 mg capsule 20 mg PO DAILY PRN 05/13/18 09/06/20 Allergies Allergy/AdvReac Type Severity Reaction Status Date / Time adhesive AdvReac Mild REDNESS Verified 06/07/21 11:28 naproxen AdvReac Mild TERRIBLE Verified 06/07/21 11:28 GAS PAIN Review of Systems Constitutional Constitutional: Denies fatigue, Denies fever(s), Reports frequent falls and Denies headache(s) Eyes Eyes: Denies change in vision ENT Ears, Nose, Mouth, and Throat: Denies headache(s) Cardiovascular Cardiovascular: Denies chest pain and Denies dyspnea Respiratory Respiratory: Denies cough and Denies dyspnea Gastrointestinal Gastrointestinal: Denies abdominal pain and Denies vomiting Genitourinary Genitourinary: Reports system reviewed and no additional complaints, except as documented Musculoskeletal Musculoskeletal: Reports system reviewed and no additional complaints, except as documented Integumentary/Breasts Skin/Breast: Reports system reviewed and no additional complaints, except as documented Neurologic Neurologic: Reports frequent falls and Denies headache(s) Endocrine Endocrine: Denies fatigue Hematologic/Lymphatic On Anticoagulants: No Allergic/Immunologic Allergic/Immunologic: Reports system reviewed and no additional complaints, except as documented Patient History Medical History (Updated 06/07/21 @ 14:16 by Darrick Jimenez DO) Cataract of right eye Cyst of buttocks Inguinal hernia bilateral, non-recurrent Surgical History H/O vasectomy Hx of colectomy Social History household members: spouse Smoking Status: Never smoker alcohol intake: never Smoking Status: Never smoker alcohol intake frequency: holidays/special occasions only Substance Use Type: does not use Exam Initial Vital Signs Initial Vital Signs: Vital Signs Temperature 98.4 F 06/07/21 11:23 Pulse Rate 76 06/07/21 11:23 Respiratory Rate 24 06/07/21 11:23 Blood Pressure 120/58 L 06/07/21 11:23 Pulse Oximetry 91 06/07/21 11:23 Const General: cooperative, comfortable, well developed and well groomed HENTN Head: normal to inspection and normocephalic Ears: hearing grossly normal bilaterally Eyes Pupils: PERRL Resp Effort & Inspection: normal respiratory effort Auscultation: clear to auscultation bilaterally Cardio Rate: regular rate Rhythm: regular rhythm GI Palpation: soft and No tender Skin General: no rashes or lesions noted Neuro General: patient alert, patient awake, patient oriented x3 and moves all extremities Cognition: normal cognition Gait: normal gait Motor: muscle tone normal throughout Sensory Exam: no sensory deficits noted Extrem General: normal to inspection, capillary refill normal, no pedal edema and no calf tenderness Other: 5/5 strength bilateral upper and lower extremities. Psych Appearance: grossly normal and well kempt Course Orders Ordered: ED Orders 06/07/21 12:10 CBC Auto Diff [Complete Blood Count AUTO DIFF] Stat CMP [Comprehensive Metabolic Panel] Stat PT [Prothrombin Time INR] Stat PTT [Partial Thromboplastin Time] Stat 06/07/21 13:59 Consult to ELECTRIC ENGINE MECHANIC - Medium Cycle Salesperson Stat 06/07/21 14:10 COVID19 -Nasal swab/Pre-Proc Stat Vital Signs Vital signs: Vital Signs - 8 hr 06/07/21 11:23 06/07/21 11:27 06/07/21 11:30 Temperature 98.4 F Pulse Rate 76 68 75 Respiratory Rate 24 20 20 Blood Pressure 120/58 L 114/55 L Pulse Oximetry 91 90 L 90 L 06/07/21 12:00 06/07/21 12:30 06/07/21 12:31 Temperature Pulse Rate 64 61 61 Respiratory Rate 24 22 Blood Pressure 134/61 131/62 Pulse Oximetry 90 L 90 L 90 L 06/07/21 13:00 06/07/21 13:01 06/07/21 13:30 Temperature Pulse Rate 69 64 60 Respiratory Rate 22 21 Blood Pressure 143/82 H Pulse Oximetry 92 92 93 06/07/21 13:31 06/07/21 14:00 06/07/21 14:01 Temperature Pulse Rate 63 65 65 Respiratory Rate 20 26 H Blood Pressure 144/65 H 124/58 L Pulse Oximetry 94 93 93 06/07/21 14:30 Temperature Pulse Rate 65 Respiratory Rate Blood Pressure 130/60 Pulse Oximetry MDM - Fall Lab Data Attestation: I reviewed the patient's lab results. Result diagrams: 06/07/21 12:10 06/07/21 12:10 Labs: Lab Results 06/07/21 06/07/21 06/07/21 Range/Units 12:10 12:10 12:10 WBC 4.7 (4.5-11.0) X10^3/uL RBC 4.50 (4.5-5.9) X10^6/uL Hgb 14.8 (13.5-17.5) g/dL Hct 44.0 (41-53) % MCV 97.9 (80-100) fL MCH 33.0 (26-34) PG MCHC 33.7 (30-36) % RDW 12.8 (11.6-14.8) % Plt Count 105 L (150-400) X10^3/uL Neut % (Auto) 74.9 (50-75) % Lymph % (Auto) 14.6 L (25-40) % Bremer % (Auto) 8.5 (3-14) % Eos % (Auto) 1.6 L (2-4) % Baso % (Auto) 0.4 (0-2) % Neut # (Auto) 3500 (2375-1657) /uL Lymph # (Auto) 700 L (3671-5349) /uL Bremer # (Auto) 400 (0-900) /uL Eos # (Auto) 100 (0-450) /uL Baso # (Auto) 0 (0-100) /uL PT 12.3 (10.1-12.7) SECONDS INR 1.1 (0.9-1.3) APTT (26.4-36.2) SECONDS Sodium 132 L (137-145) mmol/L Potassium 4.4 (3.4-5.1) mmol/L Chloride 99 (98-107) mmol/L Carbon Dioxide 33 H (22-32) mmol/L BUN 10 (9-20) mg/dL Creatinine 0.59 L (0.66-1.25) mg/dL Estimated GFR > 60.0 (>60) mL/min BUN/Creatinine Ratio 16.9 (6-22) Glucose 90 (80-110) mg/dL Calcium 8.8 (8.4-10.2) mg/dL Total Bilirubin 0.7 (0.2-1.3) mg/dL AST 20 (17-59) IU/L ALT 12 (<50) IU/L Alkaline Phosphatase 65 (38-126) U/L Total Protein 6.0 L (6.3-8.2) g/dL Albumin 3.6 (3.5-5.0) g/dL Globulin 2.4 (1.7-4.1) g/dL Albumin/Globulin Ratio 1.5 (1.0-2.8) SARS-CoV-2 (PCR) (Negative) 06/07/21 06/07/21 Range/Units 12:10 14:10 WBC (4.5-11.0) X10^3/uL RBC (4.5-5.9) X10^6/uL Hgb (13.5-17.5) g/dL Hct (41-53) % MCV (80-100) fL MCH (26-34) PG MCHC (30-36) % RDW (11.6-14.8) % Plt Count (150-400) X10^3/uL Neut % (Auto) (50-75) % Lymph % (Auto) (25-40) % Bremer % (Auto) (3-14) % Eos % (Auto) (2-4) % Baso % (Auto) (0-2) % Neut # (Auto) (5000-7680) /uL Lymph # (Auto) (4468-7352) /uL Bremer # (Auto) (0-900) /uL Eos # (Auto) (0-450) /uL Baso # (Auto) (0-100) /uL PT (10.1-12.7) SECONDS INR (0.9-1.3) APTT 35 (26.4-36.2) SECONDS Sodium (137-145) mmol/L Potassium (3.4-5.1) mmol/L Chloride (98-107) mmol/L Carbon Dioxide (22-32) mmol/L BUN (9-20) mg/dL Creatinine (0.66-1.25) mg/dL Estimated GFR (>60) mL/min BUN/Creatinine Ratio (6-22) Glucose (80-110) mg/dL Calcium (8.4-10.2) mg/dL Total Bilirubin (0.2-1.3) mg/dL AST (17-59) IU/L ALT (<50) IU/L Alkaline Phosphatase (38-126) U/L Total Protein (6.3-8.2) g/dL Albumin (3.5-5.0) g/dL Globulin (1.7-4.1) g/dL Albumin/Globulin Ratio (1.0-2.8) SARS-CoV-2 (PCR) Negative (Negative) Urine Dip Bedside Urine Glucose Negative Bedside Urine Bilirubin - Negative Bedside Urine Ketone - Negative Urine Specific [place] 1.010 Bedside Urine Occult Blood - Negative Bedside Urine pH 7.0 Bedside Urine Protein - Negative Bedside Urine Urobilinogen - Negative Bedside Urine Nitrite - Negative Bedside Urine Leukocytes - Negative Esterase Imaging Data brain MRI: Radiologist's Impression: [address] [address] Magnetic Resonance Report Signed Patient: Jose Neal MR#: [id number] : 1935 Acct:[id number] Age/Sex: 85 / M Date of Service: 06/07/21 Loc: MRI Accession Number: [id number] ?? Procedure: MR stroke Ordering Provider: Jose Siddiqui MD PROCEDURE:? MR STROKE Pre- and post-contrast brain MRI, non-contrast brain MR angiogram, pre- and postcontrast neck MR angiogram ? INDICATIONS:? Disorientation, unspecified ? TECHNIQUE:? Brain:? Noncontrast axial T1 spin echo, axial T2 fast spin echo, sagittal and axial FLAIR, coronal T2 fast spin echo, axial gradient echo, axial diffusion and ADC through the brain.? After the administration of contrast, axial 3D VIBE of the cranial vasculature and brain.? Brain MRA:? Non-contrast 3-D time of flight MR angiogram, with multiple wgdrewm-phqhkykmw-pzobyuenwb (MIP) reformats performed.? Neck MRA:? Axial and sagittal TruFISP through the neck.? Coronal dynamic MR angiogram during administration of contrast in the arterial and venous phases, with 3-dimenstional dzovuob-wqzayqkzn-jdyieqdpdx (MIP) reformats constructed from subtraction images.? ? COMPARISON:? None. ? FINDINGS:? Image quality:? Excellent.? ? BRAIN:? These images demonstrate a mixed age right cerebral convexity subdural hematoma which extends over the right frontal and parietal lobes measuring greater than 16 cm in length and approximately the 3 cm in maximum thickness.? The hematoma has areas of high, intermediate, and low T1/T2 signal intensity indicating that there are blood products of variable age is within the collection.? There is moderate overall mass effect manifesting as regional sulcal effacement along with approximately 8 mm right to left midline shift at the level of the septum pellucidum and 3rd ventricle.? There is no restricted diffusion to indicate recent ischemia.? The major intracranial vascular flow-related signal voids are maintained.? There is seiq-bm-iavkxyfs global cerebral volume loss and chronic microvascular ischemic change. ? BRAIN MR ANGIOGRAM:? Anterior circulation:? No flow-limiting stenosis or occlusion of the intracranial internal carotid arteries, anterior cerebral arteries, or middle cerebral arteries. Posterior circulation:? No flow-limiting stenosis of the V4 segments, basilar artery, or posterior cerebral arteries. ? NECK MR ANGIOGRAM:? Carotids:? Standard 3 vessel aortic arch anatomy.? No flow-limiting stenosis of the carotid arterial circulation of the neck. Posterior circulation:? Widely patent and codominant vertebral arteries. Miscellaneous:? Subclavian arteries appear patent.? Pre-contrast images through the neck show no soft tissue abnormalities.? ? IMPRESSION:? ? BRAIN MRI:? Moderate-sized right cerebral convexity subdural hematoma with signal characteristics suggesting that there are both acute and subacute or remote blood products.? Findings were discussed with Dr. Rasmussen at time of dictation. ? BRAIN MR ANGIOGRAM:? No hemodynamically significant stenosis of the major intracranial arterial circulation. ? NECK MR ANGIOGRAM:? No hemodynamically significant stenosis of the major extracranial arterial circulation. ? ? Dictated by: Ulisses Bingham M.D. on 06/07/2021 at 11:28 ? ? Approved by: Ulisses Bingham M.D. on 06/07/2021 at 11:38? MDM Narrative Medical decision making narrative: The MRI that is included in this note is for reference purposes only. It was ordered and performed as an outpatient. He does have a right-sided subdural hematoma. His last fall per his report was approximately 3 weeks ago. He has a normal neurologic exam. Has relatively no symptoms and actually states that his balance issues have improved. Discussed the case with Dr. Jimenes with neurosurgery at [facility] who recommended the patient be transferred. I did discuss this with the patient. He initially very hesitant because of transportation issues for his . He asked to speak with his primary doctor however his primary doctor is not in the office today. I did inform him that I had the recommend that he be transferred. He eventually agreed. He is currently stable for transport. Will send by air left. Discharge Plan Departure Patient Disposition: Xfer Acute Care Hospital Clinical Impression: Subdural hematoma Prescriptions: No Action Spiriva with HandiHaler 18 MCG capsule, w/inhalation device 18 mcg RT 0600 Qty: 0 0RF cholecalciferol (vitamin D3) [Vitamin D3] 2,000 UNIT capsule 2,000 iu PO DAILY Qty: 0 0RF calcium carbonate [Oyster Shell Calcium 500] 500 MG tablet 500 mg PO DAILY Qty: 0 0RF atorvastatin [Lipitor] 10 mg Tablet 10 mg PO DAILY 0RF albuterol sulfate 90 mcg/actuation Aerosol Powdr Breath Activated 2 puff INHALATION Q6H PRN (Reason: Shortness Of Breath) 0RF ascorbic acid (vitamin C) [Vitamin C] 1,000 mg Tablet 1 g PO DAILY 0RF piroxicam 20 mg Capsule 20 mg PO DAILY PRN (Reason: stiffness) 0RF Centrum Silver 0.4-300-250 mg-mcg-mcg Tablet 1 tab PO DAILY 0RF [employer] 10 billion cell -200 mg Capsule 1 cap PO DAILY 0RF Referrals: Jose Siddiqui MD [Primary Care Provider] -
[2021-06-07 12:22] LABS: Add Manual Diff / Slide Review NO; Basophils Absolute Auto 0 /uL (0-100); Basophils Percent Auto 0.4 % (0-2); Eosinophils Absolute Auto 100 /uL (0-450); Eosinophils Percent Auto 1.6 % (2-4); Hemoglobin 14.8 g/dL (13.5-17.5); Lymphocytes Absolute Auto 700 /uL (1100-4500); Lymphocytes Percent Auto 14.6 % (25-40); Mean Corpuscular HGB Conc 33.7 % (30-36); Mean Corpuscular Volume 97.9 fL (80-100); Monocytes Absolute Auto 400 /uL (0-900); Monocytes Percent Auto 8.5 % (3-14); Neutrophils Absolute Auto 3500 /uL (1500-7000); Neutrophils Percent Auto 74.9 % (50-75); Platelet Count 105 X10^3/uL (150-400); Red Cell Distribution Width 12.8 % (11.6-14.8); White Blood Cell Count 4.7 X10^3/uL (4.5-11.0)
[2021-06-07 12:24] LABS: INR 1.1 (0.9-1.3); Prothrombin Time 12.3 SECONDS (10.1-12.7)
[2021-06-07 12:30] LABS: Alanine Aminotransferase 12 IU/L (<50); Albumin 3.6 g/dL (3.5-5.0); Albumin Globulin Ratio 1.5 (1.0-2.8); Alkaline Phosphatase 65 U/L (38-126); Aspartate Aminotransferase 20 IU/L (17-59); BUN Creatinine Ratio 16.9 (6-22); Bilirubin Total 0.7 mg/dL (0.2-1.3); Blood Urea Nitrogen 10 mg/dL (9-20); Calcium 8.8 mg/dL (8.4-10.2); Carbon Dioxide 33 mmol/L (22-32); Chloride 99 mmol/L (98-107); Estimated Glomerular Filt Rate > 60.0 mL/min (>60); Globulin 2.4 g/dL (1.7-4.1); Glucose 90 mg/dL (80-110); HEMOLYSIS < 15 (0-50); Potassium 4.4 mmol/L (3.4-5.1); Sodium 132 mmol/L (137-145)
[2021-06-07 12:32] LABS: PTT Partial Thromboplastin Tim 35 SECONDS (26.4-36.2)
--- NOTE | 2021-06-07 13:09 | PC.NURSE ---
Pt came to the hospital this morning for an MRI, during the diagnostic imaging process the tech/radiologist observed a subdural hematoma with midline shift and called the ED physician for consult. Pt arrived to room 2 shortly thereafter. AOx4. `-
[2021-06-07 14:39] LABS: COVID19 -Nasal RAPID Negative (Negative)
--- NOTE | 2021-06-07 14:44 | CM.SWNOTE ---
RIDES ATTENDANT Note RIDES ATTENDANT receives consult to support as needed as patient is to transfer to [facility]. Patient is 85 y/o male who presents to ED due to concern for disorientation after GLF. Patient endorses he had a GLF on 02/21/21 and went to [facility], had a laceration repair and CT scan done. Patient's recent outpatient MRI shows concern for Hematoma and patient needs further medical admission at a higher level of care hospital. Patient has hx of lung cancer, bowel obstruction, cyst and subdural hematoma. Patient endorses issues with balance. Patient resides in [place] with . It is reported that and patient utilize senior ambrose services for transportation. When RIDES ATTENDANT enters room patient's prepares to leave ED with ride and endorses she has secured a ride to [place] to see patient at [facility]. Patient and decline further RIDES ATTENDANT needs at this time. Airlift arrives to transfer patient to [facility]. Plan: Patient to transfer to [facility], to utilize senior resources for transportation. [facility] [place]
== END 2021-06-07 14:59 | disposition short-term general hospital (02) ==
PROVIDERS: Emergency Provider Emergency Medicine; Family Provider Urology; PCP Family Medicine
DX: S06.5X9A Traumatic subdural hemorrhage with loss of consciousness of unspecified duration, initial encounter (principal); Z20.822 Contact with and (suspected) exposure to COVID-19; W19.XXXA Unspecified fall, initial encounter; R41.0 Disorientation, unspecified
CPT/HCPCS: 70548; 70553; 80053; 81003; 85025; 85610; 85730; 87635; 99283; 99284; C9803

== ENCOUNTER → 2021-07-05 12:22 | Outpatient (CLI) | payer MEDICARE, BC, SELFPAY ==
--- NOTE | 2021-07-05 | DI.RAD.S_ITS ---
PROCEDURE: XR ACUTE ABDOMEN SERIES INDICATIONS: ABDOMINAL PAIN TECHNIQUE: One view chest and two views of the abdomen were acquired. COMPARISON: [facility], CT, CT CHEST W CON, 08/31/2020, 13:13. [facility], CR, CHEST 1 VIEW, 11/28/2016, 5:50. FINDINGS: Surgical changes and devices: Hernia mesh projects over the lower pelvis. Radiotherapy seeds project over the prostate fossa.. Chest: Lungs are clear. Heart size is normal. Blunting of left costophrenic angle which could represent scarring or small pleural fluid collection. No pneumoperitoneum. Abdomen: Multiple dilated loops of small bowel and scattered air-fluid levels noted. Loops of small bowel dilated up to 6 centimeters. No suspicious calcifications. Visualized solid organ contours appear normal. Bones: No suspicious bony lesions. Convex right thoracolumbar spine scoliosis. Spine degenerative disc disease and facet arthropathy. IMPRESSION: Small-bowel obstruction. Findings telephoned to Dr. Siddiqui on July 05, 2021. Dictated by: Ruthann Russell MD, PhD on 07/05/2021 at 12:40 Approved by: Ruthann Russell MD, PhD on 07/05/2021 at 12:55
== END ==
PROVIDERS: Family Provider Urology; PCP Family Medicine; Referring Provider Family Medicine; Visit Provider Family Medicine
DX: K56.699 Other intestinal obstruction unspecified as to partial versus complete obstruction (principal); R10.9 Unspecified abdominal pain
CPT/HCPCS: 74022

== ENCOUNTER → 2021-08-29 10:30 | Outpatient (CLI) | payer MEDICARE, BC, SELFPAY ==
--- NOTE | 2021-08-29 10:32 | DI.CT.S_ITS ---
PROCEDURE: CT CHEST W CON INDICATIONS: lung cancer TECHNIQUE: After the administration of intravenous contrast, 5 mm thick sections acquired from the pulmonary apices to the posterior costophrenic angles. 1 mm axial lung, 5 mm thick coronal and sagittal reformats and 7 mm axial MIP were acquired. For radiation dose reduction, the following was used: automated exposure control, adjustment of mA and/or kV according to patient size. COMPARISON: [facility], CT, CT CHEST W CON, 08/31/2020, 13:13. FINDINGS: Image quality: Excellent. Lungs and pleura: There is severe centrilobular emphysema with an apical predominance, greater on the left than on the right. Paraseptal emphysema is also present at the bilateral apices in addition to pulmonary scarring. Bronchiectatic airways are redemonstrated at the posterior right lung base. Some mucous plugging is noted within these airways. Focal tree-in-bud pulmonary radiopacities are redemonstrated at the left lung base, unchanged from the study dated August 31, 2020. No new pulmonary nodules. No acute airspace opacities. No suspicious pulmonary lesions. Mediastinum: Heart size is normal. No pericardial effusion. No mediastinal or hilar adenopathy by size criteria. Thoracic aorta and central pulmonary arteries are normal in size. Scattered atheromatous calcifications are present within the aortic arch. Esophagus is normal in caliber. No hiatal hernia. Bones and chest wall: No suspicious bony lesions. No vertebral body compression fractures. No axillary or supraclavicular adenopathy by size criteria. Thyroid gland is unremarkable . Abdomen: Visualized upper abdominal solid organs appear normal. Upper abdominal bowel loops are normal in caliber. IMPRESSION: 1. No findings to suggest tumor recurrence or new metastasis. Dictated by: Odalys Valencia M.D. on 08/29/2021 at 13:23 Approved by: Odalys Valencia M.D. on 08/29/2021 at 13:27
--- NOTE | 2021-08-29 10:33 | DI.CT.S_ITS ---
PROCEDURE: CT HEAD/BRAIN WO CON INDICATIONS: Nontraumatic subdural hemorrhage; Lung cancer TECHNIQUE: Noncontrast 4.5 mm thick angled axial sections acquired from the foramen magnum to the vertex, with coronal and sagittal reformats. For radiation dose reduction, the following was used: automated exposure control, adjustment of mA and/or kV according to patient size. COMPARISON: [facility], MR, MR STROKE, 06/07/2021, 10:49. FINDINGS: Image quality: Excellent. CSF spaces: Basal cisterns are patent. The ventricles are symmetric in size and shape. Brain: The previously seen right subdural fluid collection is nearly completely resolved, with subacute and chronic appearing components, with a total maximum thickness of 6-7 mm, compared to 30 mm on the prior. No significant mass effect or midline shift can be seen. No intracranial bleeds or masses. There is cerebral volume loss for age, with resultant ventricular and sulcal prominence. There are periventricular and deep white matter chronic small vessel ischemic changes. There is intracranial internal carotid artery atherosclerosis. Skull and face: Interval right-sided sandy holes can be seen. Calvarium and visualized facial bones appear intact, without suspicious lesions. Sinuses: Visualized sinuses and mastoids are clear. IMPRESSION: Nearly completely resolved right-sided subdural hematoma, with interval sandy hole placement. Dictated by: Nguyễn Rees M.D. on 08/29/2021 at 10:14 Approved by: Nguyễn Rees M.D. on 08/29/2021 at 10:16
== END ==
PROVIDERS: Family Provider Urology; PCP Family Medicine; Referring Provider Internal Medicine Hematology & Oncology; Visit Provider Internal Medicine Hematology & Oncology
DX: I62.00 Nontraumatic subdural hemorrhage, unspecified (principal); C34.90 Malignant neoplasm of unspecified part of unspecified bronchus or lung
CPT/HCPCS: 70450; 71260; Q9967

== ENCOUNTER 2022-04-04 12:38 | Inpatient (IN) | payer MEDICARE, BC, SELFPAY ==
[2022-04-04] VITALS (30 sets, daily range): BP systolic 102–164; BP diastolic 58–78; PULSE 62–94; RESP 18–41; TEMP 36.7–36.8; O2SAT 83–98; BMI 27.4
--- NOTE | 2022-04-04 12:43 | DI.RAD.S_ITS ---
PROCEDURE: XR CHEST 1V INDICATIONS: SOB, cough TECHNIQUE: One view of the chest was acquired. COMPARISON: CT, CT CHEST W CON, 08/31/2020, 13:13. [facility], , CHEST 1 VIEW, 11/28/2016, 5:50. FINDINGS: Surgical changes and devices: None. Lungs and pleura: There is mild effusion within the left base, minimal on the right. Mediastinum: Mediastinal contours appear normal. Heart size is enlarged. Bones and chest wall: No suspicious bony lesions. Overlying soft tissues appear unremarkable. IMPRESSION: Minimal to mild bilateral effusions, right greater than left. Underlying areas of pneumonia, atelectasis or other mass lesion cannot be excluded. Recommend interval follow-up to document resolution. Dictated by: Linda Hardin M.D. on 04/04/2022 at 13:54 Approved by: Linda Hardin M.D. on 04/04/2022 at 13:55
--- NOTE | 2022-04-04 12:45 | ED.SOB ---
HPI - SOB/Dyspnea <Jah Rubio - Last Filed: 04/05/22 11:50> General Chief Complaint: Shortness of Breath/Dyspnea Stated Complaint: COPD Time Seen by Provider: 04/04/22 12:42 History of Present Illness HPI Narrative: 86F smoker with COPD, HTN, hyperlipidemia. and lung cancer presents with EMS in the chief complaint of gradually worsening shortness of breath over the past few days. He does not use oxygen at home. He does continue to smoke and had been using his inhaler with increasing frequency and no effect. He states his shortness of breath is worse with exertion and also when he lies flat and he questions whether his ankles may be swelling a bit. He is had no fever or chills. He is had a wet sounding cough that is also worsening. He denies any chest pain, nausea, vomiting or diarrhea. He denies any recent changes in medication, travel. He does not use home oxygen states that he normally has saturation levels in the upper 80s. His noticed him working to breathe a bit and took a pulse ox them measured in the low 70s. He was 86% when EMS arrived, they put him on 3 L and he increased to 92-93%. Furthermore, they gave a breathing treatment that seemed to help a bit Related Data Home Medications Medication Instructions Recorded Confirmed calcium carbonate 500 mg calcium 500 mg PO DAILY ##0 09/18/16 09/05/21 (1,250 mg) tablet (Oyster Shell Calcium 500) cholecalciferol (vitamin D3) 50 2,000 iu PO DAILY ##0 09/18/16 09/05/21 mcg (2,000 unit) capsule (Vitamin D3) tiotropium bromide 18 mcg capsule 18 mcg RT 0600 ##0 09/18/16 09/05/21 with inhalation device (Spiriva with HandiHaler) atorvastatin 10 mg tablet (Lipitor) 10 mg PO DAILY 08/31/17 04/04/22 Lactobacillus rhamnosus GG 10 1 cap PO DAILY 05/13/18 09/05/21 billion cell-inulin 200 mg capsule ([facility]) ascorbic acid (vitamin C) 1,000 mg 1 g PO DAILY 05/13/18 09/06/20 tablet (Vitamin C) [id number] acid 0.4 1 tab PO DAILY 05/13/18 09/05/21 mg-lycopene 300 mcg-lutein 250 mcg tablet (Centrum Silver) piroxicam 20 mg capsule 20 mg PO DAILY PRN stiffness 05/13/18 09/05/21 guaifenesin 600 mg tablet,extended 600 mg PO DAILY 09/05/21 09/05/21 release tamsulosin 0.4 mg capsule 0.4 mg PO DAILY 09/05/21 04/05/22 albuterol sulfate 2.5 mg/3 mL 2.5 mg inhalation Q6H PRN 04/04/22 04/04/22 (0.083 %) solution for nebulization shortness of breath albuterol sulfate 90 mcg/actuation 1 puff inhalation DAILY 04/04/22 04/04/22 aerosol inhaler ipratropium bromide 0.02 % 04/04/22 solution for inhalation tiotropium bromide 18 mcg capsule 1 cap inhalation DAILY 04/04/22 04/04/22 with inhalation device (Spiriva with HandiHaler) Allergies Allergy/AdvReac Type Severity Reaction Status Date / Time adhesive AdvReac Mild REDNESS Verified 06/07/21 11:28 naproxen AdvReac Mild TERRIBLE Verified 06/07/21 11:28 GAS PAIN Review of Systems <Jah Rubio DO - Last Filed: 04/05/22 11:50> Review of Systems Narrative: GENERAL: See HPI HEENT: Denies sinus pain, ear pain, sore throat, difficulty swallowing, dizziness. RESPIRATORY: See HPI CARDIOVASCULAR: See HPI GASTROINTESTINAL: Denies nausea, vomiting, abdominal pain, diarrhea, constipation, melena. : Denies dysuria, frequency, incontinence, hematuria, urinary retention. MUSCULOSKELETAL: denies weakness, joint pain, or bony pain SKIN: Denies rash, skin lesions, or other NEUROLOGIC: Denies weakness, headache, numbness, change in speech, confusion, seizures, incoordination. PSYCHIATRIC: No concerning psychosocial issues. 12 point review of systems is negative except for those stated above Patient History <Jah Rubio DO - Last Filed: 04/05/22 11:50> Medical History (Updated 04/05/22 @ 11:50 by Jah Rubio DO) Cataract of right eye Cyst of buttocks Inguinal hernia bilateral, non-recurrent Surgical History H/O vasectomy Hx of colectomy Social History household members: spouse Smoking Status: Current every day smoker alcohol intake: current Smoking Status: Never smoker alcohol intake frequency: holidays/special occasions only Substance Use Type: does not use Exam <Jah Rubio DO - Last Filed: 04/05/22 11:50> Narrative Exam Narrative: GENERAL: [86] year old patient appears stated age. Well-developed patient, in moderate distress, conversational dyspnea HEAD: Atraumatic. Normocephalic. EYES: Pupils equal round and reactive. Extraocular motions intact. No scleral icterus. No injection or drainage. ENT: Nose without bleeding, purulent drainage. Throat without erythema, tonsillar hypertrophy or exudate. Airway patent. NECK: Trachea midline. Non tender CARDIOVASCULAR: Regular rate and rhythm without murmurs, gallops, or rubs. RESPIRATORY: Decreased breath sounds throughout with prolonged expiratory phase and end expiratory wheeze, wet sounding rhonchus as well. GASTROINTESTINAL: Abdomen soft, non-tender, nondistended. EXTREMITIES: 1+ pitting edema to the ankles bilaterally BACK: Nontender without deformity or crepitance. No flank tenderness. NEURO: AOx3. SKIN: No rash or erythema of visible areas Initial Vital Signs Initial Vital Signs: Vital Signs Pulse Rate 62 04/04/22 12:41 Pulse Oximetry 89 L 04/04/22 12:41 Oxygen Delivery Method 04/04/22 12:41 Oxygen Flow Rate 3 04/04/22 12:41 <Eugenio Herrmann MD - Last Filed: 04/05/22 06:50> Initial Vital Signs Initial Vital Signs: Vital Signs Pulse Rate 62 04/04/22 12:41 Pulse Oximetry 89 L 04/04/22 12:41 Oxygen Delivery Method 04/04/22 12:41 Oxygen Flow Rate 3 04/04/22 12:41 Course <Jah Rubio DO - Last Filed: 04/05/22 11:50> Orders Ordered: Acetaminophen (Acetaminophen 325 Mg Tablet) 650 mg PO Q6H [facility] Last Admin: 04/05/22 05:02 Dose: Not Given Documented By: Admin: 04/05/22 00:02 Dose: Not Given Documented By: SALMA Hydrocodone Bitart/Acetaminophen (Hydrocodone/Acet 5/325 Tablet) 1 tab PO Q4H PRN PRN Reason: Pain, Moderate (4-6) Al Hydrox/Mg Hydrox/Simethicone (Mag Hydrox/Alum/Simeth 30 Ml Udc) 30 ml PO Q6HR PRN PRN Reason: Dyspepsia Albuterol (Albuterol 2.5 Mg/3 Ml Neb (Adult)) 2.5 mg INH RTBID [facility] Last Admin: 04/05/22 07:50 Dose: 2.5 mg Documented By: CAROLA Atorvastatin Calcium (Atorvastatin 20 Mg Tablet) 10 mg PO BEDTIME [facility] Heparin Sodium/Dextrose (Heparin Drip) 25,000 unit in 500 mls @ 24 mls/hr IV CONT [facility]; Protocol Last Titration: 04/05/22 00:05 Dose: 900 units/hr, 18 mls/hr Documented By: Titration: 04/04/22 23:49 Dose: 0 units/hr, 0 mls/hr Documented By: Titration: 04/04/22 22:34 Dose: 1,200 units/hr, 24 mls/hr Documented By: Admin: 04/04/22 17:52 Dose: 1,200 units/hr, 24 mls/hr Documented By: RB Ipratropium [place] (Ipratropium 0.5 Mg/2.5 Ml Neb) 0.5 mg INH Q2H PRN PRN Reason: Shortness Of Breath Ipratropium [place] (Ipratropium 0.5 Mg/2.5 Ml Neb) 0.5 mg INH [id number] [facility] Last Admin: 04/05/22 11:15 Dose: 0.5 mg Documented By: Admin: 04/05/22 07:50 Dose: 0.5 mg Documented By: CAROLA Magnesium Hydroxide (Magnesium Hydroxide 30 Ml Udc) 30 ml PO DAILY PRN PRN Reason: Constipation Methylprednisolone (Methylprednisolone 125 Mg/2 Ml Vial) 80 mg IV Q8H [facility] Last Admin: 04/05/22 05:58 Dose: 80 mg Documented By: Admin: 04/05/22 00:03 Dose: 80 mg Documented By: SALMA Naloxone HCl (Naloxone 0.4 Mg/Ml Vial) 0.2 mg IV Q2MIN PRN PRN Reason: Opiate Reversal Ondansetron HCl (Ondansetron 4 Mg/2 Ml Inj) 4 mg IV Q8HR PRN PRN Reason: Nausea And Vomiting Tamsulosin HCl (Tamsulosin 0.4 Mg Capsule) 0.4 mg PO DAILY [facility] Last Admin: 04/05/22 08:30 Dose: Not Given Documented By: ANIKA Discontinued Medications Albuterol/Ipratropium (Albuterol/Ipratropium 3 Ml Ampul) 3 ml INH NOW ONE Stop: 04/04/22 12:55 Last Admin: 04/04/22 12:56 Dose: 3 ml Documented By: ANGELA Albuterol/Ipratropium (Albuterol/Ipratropium 3 Ml Ampul) 3 ml INH RTBID [facility] Last Admin: 04/05/22 06:03 Dose: Not Given Documented By: SALMA Albuterol/Ipratropium (Albuterol/Ipratropium 3 Ml Ampul) 3 ml INH [id number] [facility] Albuterol/Ipratropium (Albuterol/Ipratropium 3 Ml Ampul) 3 ml INH Q2H PRN PRN Reason: Shortness Of Breath Albuterol/Ipratropium (Albuterol/Ipratropium 3 Ml Ampul) 3 ml INH RTBID [facility] Furosemide (Furosemide 40 Mg/4 Ml Vial) 40 mg IV NOW ONE Stop: 04/04/22 14:22 Last Admin: 04/04/22 14:56 Dose: 40 mg Documented By: RB Heparin Sodium (Porcine) (Heparin 5,000 Unit/Ml Vial) 6,200 unit 80 unit/kg (6200 unit) IV NOW ONE Stop: 04/04/22 17:12 Last Admin: 04/04/22 17:53 Dose: 6,200 unit Documented By: RB Ceftriaxone Sodium 2,000 mg/ (Sodium Chloride) 100 mls @ 200 mls/hr IV NOW ONE Stop: 04/04/22 14:22 Last Infusion: 04/04/22 15:57 Dose: 0 mls/hr Documented By: Admin: 04/04/22 14:56 Dose: 200 mls/hr Documented By: RB Methylprednisolone (Methylprednisolone 125 Mg/2 Ml Vial) 125 mg IV NOW ONE Stop: 04/04/22 12:55 Last Admin: 04/04/22 13:33 Dose: 125 mg Documented By: BS Non-Formulary Medication (Atorvastatin [Lipitor]) 10 mg PO DAILY [facility] Non-Formulary Medication (Tiotropium [place] [Spiriva With Handihaler]) 18 mcg RT 0600 [facility] Vital Signs Vital signs: Vital Signs - 8 hr 04/04/22 12:56 04/04/22 13:01 04/04/22 12:41 Temperature 98.2 F Pulse Rate 74 68 62 Respiratory Rate 18 20 Blood Pressure 148/60 H Pulse Oximetry 95 92 89 L Oxygen Delivery Method Nasal Cannula Nasal Cannula Nasal Cannula Oxygen Flow Rate 2 3 Fraction of Inspired Oxygen 28 04/04/22 13:00 04/04/22 13:09 04/04/22 13:09 Temperature Pulse Rate 79 88 Respiratory Rate Blood Pressure 148/60 H Pulse Oximetry 94 90 L Oxygen Delivery Method Nasal Cannula Nasal Cannula Oxygen Flow Rate 3 3 Fraction of Inspired Oxygen 04/04/22 13:30 04/04/22 13:30 04/04/22 14:00 Temperature Pulse Rate 83 81 Respiratory Rate 35 H 34 H Blood Pressure 164/75 H Pulse Oximetry Oxygen Delivery Method Oxygen Flow Rate Fraction of Inspired Oxygen 04/04/22 14:01 04/04/22 14:01 04/04/22 14:30 Temperature Pulse Rate 81 Respiratory Rate 41 H Blood Pressure 164/74 H 151/66 H Pulse Oximetry Oxygen Delivery Method Oxygen Flow Rate Fraction of Inspired Oxygen 04/04/22 14:30 04/04/22 14:49 04/04/22 14:49 Temperature Pulse Rate 85 86 Respiratory Rate 33 H 36 H Blood Pressure 147/65 H Pulse Oximetry 90 L Oxygen Delivery Method Oxygen Flow Rate Fraction of Inspired Oxygen 04/04/22 15:00 04/04/22 15:00 04/04/22 15:30 Temperature Pulse Rate 80 83 Respiratory Rate 37 H 34 H Blood Pressure 163/71 H Pulse Oximetry 83 L 96 Oxygen Delivery Method Oximask Oxygen Flow Rate 3 Fraction of Inspired Oxygen 04/04/22 15:31 04/04/22 15:31 04/04/22 16:00 Temperature Pulse Rate 86 82 Respiratory Rate 29 H 32 H Blood Pressure 102/71 Pulse Oximetry 95 Oxygen Delivery Method Oximask Oxygen Flow Rate 3 Fraction of Inspired Oxygen 04/04/22 16:04 04/04/22 16:04 04/04/22 16:30 Temperature Pulse Rate 80 79 Respiratory Rate 29 H 31 H Blood Pressure 154/72 H Pulse Oximetry 92 96 Oxygen Delivery Method Oximask Oxygen Flow Rate 4 Fraction of Inspired Oxygen 04/04/22 17:00 04/04/22 17:05 04/04/22 17:05 Temperature Pulse Rate 89 81 Respiratory Rate Blood Pressure 152/70 H Pulse Oximetry 95 98 Oxygen Delivery Method Oximask Oxygen Flow Rate 3 Fraction of Inspired Oxygen 04/04/22 17:15 04/04/22 17:15 04/04/22 17:30 Temperature Pulse Rate 82 81 Respiratory Rate Blood Pressure 163/71 H Pulse Oximetry 98 94 Oxygen Delivery Method Oximask Oximask Oxygen Flow Rate 3 3 Fraction of Inspired Oxygen 04/04/22 18:00 04/04/22 18:16 04/04/22 18:16 Temperature Pulse Rate 82 81 Respiratory Rate Blood Pressure 153/67 H Pulse Oximetry 96 95 Oxygen Delivery Method Oximask Oximask Oxygen Flow Rate 4 4 Fraction of Inspired Oxygen <Eugenio Herrmann MD - Last Filed: 04/05/22 06:50> Course Course Narrative: pt chart accessed at request of staff in order to place dx on chart to be able to remove pt off tracking board - Montez MÉNDEZ Orders Ordered: Acetaminophen (Acetaminophen 325 Mg Tablet) 650 mg PO Q6H [facility] Last Admin: 04/05/22 05:02 Dose: Not Given Documented By: Admin: 04/05/22 00:02 Dose: Not Given Documented By: SALMA Hydrocodone Bitart/Acetaminophen (Hydrocodone/Acet 5/325 Tablet) 1 tab PO Q4H PRN PRN Reason: Pain, Moderate (4-6) Al Hydrox/Mg Hydrox/Simethicone (Mag Hydrox/Alum/Simeth 30 Ml Udc) 30 ml PO Q6HR PRN PRN Reason: Dyspepsia Albuterol (Albuterol 2.5 Mg/3 Ml Neb (Adult)) 2.5 mg INH RTBID [facility] Last Admin: 04/05/22 07:50 Dose: 2.5 mg Documented By: SAT Atorvastatin Calcium (Atorvastatin 20 Mg Tablet) 10 mg PO BEDTIME [facility] Heparin Sodium/Dextrose (Heparin Drip) 25,000 unit in 500 mls @ 24 mls/hr IV CONT [facility]; Protocol Last Titration: 04/05/22 00:05 Dose: 900 units/hr, 18 mls/hr Documented By: Titration: 04/04/22 23:49 Dose: 0 units/hr, 0 mls/hr Documented By: Titration: 04/04/22 22:34 Dose: 1,200 units/hr, 24 mls/hr Documented By: Admin: 04/04/22 17:52 Dose: 1,200 units/hr, 24 mls/hr Documented By: ANJUM Ipratropium [place] (Ipratropium 0.5 Mg/2.5 Ml Neb) 0.5 mg INH Q2H PRN PRN Reason: Shortness Of Breath Ipratropium [place] (Ipratropium 0.5 Mg/2.5 Ml Neb) 0.5 mg INH [id number] Last Admin: 04/05/22 11:15 Dose: 0.5 mg Documented By: Admin: 04/05/22 07:50 Dose: 0.5 mg Documented By: CAROLA Magnesium Hydroxide (Magnesium Hydroxide 30 Ml Udc) 30 ml PO DAILY PRN PRN Reason: Constipation Methylprednisolone (Methylprednisolone 125 Mg/2 Ml Vial) 80 mg IV Q8H [facility] Last Admin: 04/05/22 05:58 Dose: 80 mg Documented By: Admin: 04/05/22 00:03 Dose: 80 mg Documented By: SALMA Naloxone HCl (Naloxone 0.4 Mg/Ml Vial) 0.2 mg IV Q2MIN PRN PRN Reason: Opiate Reversal Ondansetron HCl (Ondansetron 4 Mg/2 Ml Inj) 4 mg IV Q8HR PRN PRN Reason: Nausea And Vomiting Tamsulosin HCl (Tamsulosin 0.4 Mg Capsule) 0.4 mg PO DAILY [facility] Last Admin: 04/05/22 08:30 Dose: Not Given Documented By: ANIKA Discontinued Medications Albuterol/Ipratropium (Albuterol/Ipratropium 3 Ml Ampul) 3 ml INH NOW ONE Stop: 04/04/22 12:55 Last Admin: 04/04/22 12:56 Dose: 3 ml Documented By: ANGELA Albuterol/Ipratropium (Albuterol/Ipratropium 3 Ml Ampul) 3 ml INH RTBID [facility] Last Admin: 04/05/22 06:03 Dose: Not Given Documented By: SALMA Albuterol/Ipratropium (Albuterol/Ipratropium 3 Ml Ampul) 3 ml INH [id number] SCH Albuterol/Ipratropium (Albuterol/Ipratropium 3 Ml Ampul) 3 ml INH Q2H PRN PRN Reason: Shortness Of Breath Albuterol/Ipratropium (Albuterol/Ipratropium 3 Ml Ampul) 3 ml INH RTBID [facility] Furosemide (Furosemide 40 Mg/4 Ml Vial) 40 mg IV NOW ONE Stop: 04/04/22 14:22 Last Admin: 04/04/22 14:56 Dose: 40 mg Documented By: RB Heparin Sodium (Porcine) (Heparin 5,000 Unit/Ml Vial) 6,200 unit 80 unit/kg (6200 unit) IV NOW ONE Stop: 04/04/22 17:12 Last Admin: 04/04/22 17:53 Dose: 6,200 unit Documented By: RB Ceftriaxone Sodium 2,000 mg/ (Sodium Chloride) 100 mls @ 200 mls/hr IV NOW ONE Stop: 04/04/22 14:22 Last Infusion: 04/04/22 15:57 Dose: 0 mls/hr Documented By: Admin: 04/04/22 14:56 Dose: 200 mls/hr Documented By: RB Methylprednisolone (Methylprednisolone 125 Mg/2 Ml Vial) 125 mg IV NOW ONE Stop: 04/04/22 12:55 Last Admin: 04/04/22 13:33 Dose: 125 mg Documented By: BS Non-Formulary Medication (Atorvastatin [Lipitor]) 10 mg PO DAILY [facility] Non-Formulary Medication (Tiotropium [place] [Spiriva With Handihaler]) 18 mcg RT 0600 [facility] Vital Signs Vital signs: Vital Signs - 8 hr 04/04/22 12:56 04/04/22 13:01 04/04/22 12:41 Temperature 98.2 F Pulse Rate 74 68 62 Respiratory Rate 18 20 Blood Pressure 148/60 H Pulse Oximetry 95 92 89 L Oxygen Delivery Method Nasal Cannula Nasal Cannula Nasal Cannula Oxygen Flow Rate 2 3 Fraction of Inspired Oxygen 28 04/04/22 13:00 04/04/22 13:09 04/04/22 13:09 Temperature Pulse Rate 79 88 Respiratory Rate Blood Pressure 148/60 H Pulse Oximetry 94 90 L Oxygen Delivery Method Nasal Cannula Nasal Cannula Oxygen Flow Rate 3 3 Fraction of Inspired Oxygen 04/04/22 13:30 04/04/22 13:30 04/04/22 14:00 Temperature Pulse Rate 83 81 Respiratory Rate 35 H 34 H Blood Pressure 164/75 H Pulse Oximetry Oxygen Delivery Method Oxygen Flow Rate Fraction of Inspired Oxygen 04/04/22 14:01 04/04/22 14:01 04/04/22 14:30 Temperature Pulse Rate 81 Respiratory Rate 41 H Blood Pressure 164/74 H 151/66 H Pulse Oximetry Oxygen Delivery Method Oxygen Flow Rate Fraction of Inspired Oxygen 04/04/22 14:30 04/04/22 14:49 04/04/22 14:49 Temperature Pulse Rate 85 86 Respiratory Rate 33 H 36 H Blood Pressure 147/65 H Pulse Oximetry 90 L Oxygen Delivery Method Oxygen Flow Rate Fraction of Inspired Oxygen 04/04/22 15:00 04/04/22 15:00 04/04/22 15:30 Temperature Pulse Rate 80 83 Respiratory Rate 37 H 34 H Blood Pressure 163/71 H Pulse Oximetry 83 L 96 Oxygen Delivery Method Oximask Oxygen Flow Rate 3 Fraction of Inspired Oxygen 04/04/22 15:31 04/04/22 15:31 04/04/22 16:00 Temperature Pulse Rate 86 82 Respiratory Rate 29 H 32 H Blood Pressure 102/71 Pulse Oximetry 95 Oxygen Delivery Method Oximask Oxygen Flow Rate 3 Fraction of Inspired Oxygen 04/04/22 16:04 04/04/22 16:04 04/04/22 16:30 Temperature Pulse Rate 80 79 Respiratory Rate 29 H 31 H Blood Pressure 154/72 H Pulse Oximetry 92 96 Oxygen Delivery Method Oximask Oxygen Flow Rate 4 Fraction of Inspired Oxygen 04/04/22 17:00 04/04/22 17:05 04/04/22 17:05 Temperature Pulse Rate 89 81 Respiratory Rate Blood Pressure 152/70 H Pulse Oximetry 95 98 Oxygen Delivery Method Oximask Oxygen Flow Rate 3 Fraction of Inspired Oxygen 04/04/22 17:15 04/04/22 17:15 04/04/22 17:30 Temperature Pulse Rate 82 81 Respiratory Rate Blood Pressure 163/71 H Pulse Oximetry 98 94 Oxygen Delivery Method Oximask Oximask Oxygen Flow Rate 3 3 Fraction of Inspired Oxygen 04/04/22 18:00 04/04/22 18:16 04/04/22 18:16 Temperature Pulse Rate 82 81 Respiratory Rate Blood Pressure 153/67 H Pulse Oximetry 96 95 Oxygen Delivery Method Oximask Oximask Oxygen Flow Rate 4 4 Fraction of Inspired Oxygen MDM - SOB/Dyspnea <Jah Rubio, DO - Last Filed: 04/05/22 11:50> Lab Data Result diagrams: 04/05/22 07:05 04/05/22 07:05 Labs: Lab Results 04/04/22 04/04/22 04/04/22 Range/Units 12:55 12:55 12:55 WBC 6.3 (4.5-11.0) X10^3/uL RBC 5.46 (4.5-5.9) X10^6/uL Hgb 18.0 H (13.5-17.5) g/dL Hct 54.9 H (41-53) % MCV 100.6 H (80-100) fL MCH 33.1 (26-34) PG MCHC 32.9 (30-36) % RDW 14.0 (11.6-14.8) % Plt Count 135 L (150-400) X10^3/uL Neut % (Auto) 78.3 H (50-75) % Lymph % (Auto) 14.0 L (25-40) % Reynolds % (Auto) 7.3 (3-14) % Eos % (Auto) 0.1 L (2-4) % Baso % (Auto) 0.3 (0-2) % Neut # (Auto) 4900 (9808-1128) /uL Lymph # (Auto) 900 L (7627-6603) /uL Reynolds # (Auto) 500 (0-900) /uL Eos # (Auto) 0 (0-450) /uL Baso # (Auto) 0 (0-100) /uL PT 13.0 H (10.1-12.7) SECONDS INR 1.1 (0.9-1.3) APTT (26-36) SECONDS D-Dimer (<500) ng/ml ABG pH (7.35-7.45) ABG pCO2 (35-45) mmHg ABG pO2 (80-100) mmHg ABG HCO3 (22-26) mmol/L ABG Total CO2 (21-31) mmol/L ABG O2 Saturation (95-100) % ABG Base Excess (-2-2) mmol/L FiO2 Sodium 130 L (137-145) mmol/L Potassium 5.1 (3.4-5.1) mmol/L Chloride 88 L (98-107) mmol/L Carbon Dioxide 36 H (22-32) mmol/L BUN 17 (9-20) mg/dL Creatinine 0.69 (0.66-1.25) mg/dL Estimated GFR > 60 (>60) mL/min BUN/Creatinine Ratio 24.6 H (6-22) Glucose 119 H (80-110) mg/dL Lactate (0.7-2.1) mmol/L Calcium 8.4 (8.4-10.2) mg/dL Magnesium 2.1 (1.6-2.3) mg/dL Total Bilirubin 0.9 (0.2-1.3) mg/dL AST 39 (17-59) IU/L ALT 49 (<50) IU/L Alkaline Phosphatase 86 (38-126) U/L Total Creatine Kinase 68 (55-170) U/L CK-MB (CK-2) TNP CK-MB (CK-2) Rel Index TNP Troponin I 0.705 H* (0.01-0.034) ng/mL C-Reactive Protein 0.6 (<1.0) mg/dL NT-Pro-B Natriuret Pep 8560 H (<450) pg/mL Total Protein 6.6 (6.3-8.2) g/dL Lipase 63 (23-300) U/L Procalcitonin 0.05 (<0.5) ng/mL Urine RBC (0-5/HPF) Urine WBC (0-5/HPF) Amorphous Sediment Urine Bacteria (None) Micro UA Comment SARS-CoV-2 (PCR) (Negative) Influenza A (RT-PCR) (NEGATIVE) Influenza B (RT-PCR) (NEGATIVE) RSV (PCR) (Negative) 04/04/22 04/04/22 04/04/22 Range/Units 12:55 12:55 12:55 WBC (4.5-11.0) X10^3/uL RBC (4.5-5.9) X10^6/uL Hgb (13.5-17.5) g/dL Hct (41-53) % MCV (80-100) fL MCH (26-34) PG MCHC (30-36) % RDW (11.6-14.8) % Plt Count (150-400) X10^3/uL Neut % (Auto) (50-75) % Lymph % (Auto) (25-40) % Reynolds % (Auto) (3-14) % Eos % (Auto) (2-4) % Baso % (Auto) (0-2) % Neut # (Auto) (7173-9803) /uL Lymph # (Auto) (2843-0160) /uL Reynolds # (Auto) (0-900) /uL Eos # (Auto) (0-450) /uL Baso # (Auto) (0-100) /uL PT (10.1-12.7) SECONDS INR (0.9-1.3) APTT 38 H (26-36) SECONDS D-Dimer 1591 H (<500) ng/ml ABG pH (7.35-7.45) ABG pCO2 (35-45) mmHg ABG pO2 (80-100) mmHg ABG HCO3 (22-26) mmol/L ABG Total CO2 (21-31) mmol/L ABG O2 Saturation (95-100) % ABG Base Excess (-2-2) mmol/L FiO2 Sodium (137-145) mmol/L Potassium (3.4-5.1) mmol/L Chloride (98-107) mmol/L Carbon Dioxide (22-32) mmol/L BUN (9-20) mg/dL Creatinine (0.66-1.25) mg/dL Estimated GFR (>60) mL/min BUN/Creatinine Ratio (6-22) Glucose (80-110) mg/dL Lactate 1.1 (0.7-2.1) mmol/L Calcium (8.4-10.2) mg/dL Magnesium (1.6-2.3) mg/dL Total Bilirubin (0.2-1.3) mg/dL AST (17-59) IU/L ALT (<50) IU/L Alkaline Phosphatase (38-126) U/L Total Creatine Kinase (55-170) U/L CK-MB (CK-2) CK-MB (CK-2) Rel Index Troponin I (0.01-0.034) ng/mL C-Reactive Protein (<1.0) mg/dL NT-Pro-B Natriuret Pep (<450) pg/mL Total Protein (6.3-8.2) g/dL Lipase (23-300) U/L Procalcitonin (<0.5) ng/mL Urine RBC (0-5/HPF) Urine WBC (0-5/HPF) Amorphous Sediment Urine Bacteria (None) Micro UA Comment SARS-CoV-2 (PCR) (Negative) Influenza A (RT-PCR) (NEGATIVE) Influenza B (RT-PCR) (NEGATIVE) RSV (PCR) (Negative) 04/04/22 04/04/22 04/04/22 Range/Units 13:18 14:31 14:46 WBC (4.5-11.0) X10^3/uL RBC (4.5-5.9) X10^6/uL Hgb (13.5-17.5) g/dL Hct (41-53) % MCV (80-100) fL MCH (26-34) PG MCHC (30-36) % RDW (11.6-14.8) % Plt Count (150-400) X10^3/uL Neut % (Auto) (50-75) % Lymph % (Auto) (25-40) % Reynolds % (Auto) (3-14) % Eos % (Auto) (2-4) % Baso % (Auto) (0-2) % Neut # (Auto) (2351-9643) /uL Lymph # (Auto) (7217-0802) /uL Reynolds # (Auto) (0-900) /uL Eos # (Auto) (0-450) /uL Baso # (Auto) (0-100) /uL PT (10.1-12.7) SECONDS INR (0.9-1.3) APTT (26-36) SECONDS D-Dimer (<500) ng/ml ABG pH 7.25 L* (7.35-7.45) ABG pCO2 70.5 H* (35-45) mmHg ABG pO2 61 L (80-100) mmHg ABG HCO3 32 H (22-26) mmol/L ABG Total CO2 34 H (21-31) mmol/L ABG O2 Saturation 86 L (95-100) % ABG Base Excess 4.0 H (-2-2) mmol/L FiO2 32 Sodium (137-145) mmol/L Potassium (3.4-5.1) mmol/L Chloride (98-107) mmol/L Carbon Dioxide (22-32) mmol/L BUN (9-20) mg/dL Creatinine (0.66-1.25) mg/dL Estimated GFR (>60) mL/min BUN/Creatinine Ratio (6-22) Glucose (80-110) mg/dL Lactate (0.7-2.1) mmol/L Calcium (8.4-10.2) mg/dL Magnesium (1.6-2.3) mg/dL Total Bilirubin (0.2-1.3) mg/dL AST (17-59) IU/L ALT (<50) IU/L Alkaline Phosphatase (38-126) U/L Total Creatine Kinase (55-170) U/L CK-MB (CK-2) CK-MB (CK-2) Rel Index Troponin I (0.01-0.034) ng/mL C-Reactive Protein (<1.0) mg/dL NT-Pro-B Natriuret Pep (<450) pg/mL Total Protein (6.3-8.2) g/dL Lipase (23-300) U/L Procalcitonin (<0.5) ng/mL Urine RBC None seen (0-5/HPF) Urine WBC None seen (0-5/HPF) Amorphous Sediment 4+ Urine Bacteria None seen (None) Micro UA Comment * SARS-CoV-2 (PCR) Negative (Negative) Influenza A (RT-PCR) Flu a negative (NEGATIVE) Influenza B (RT-PCR) Flu b negative (NEGATIVE) RSV (PCR) Negative (Negative) Urine Dip Bedside Urine Glucose Negative Bedside Urine Bilirubin - Negative Bedside Urine Ketone - Negative Urine Specific [place] 1.030 Bedside Urine Occult Blood - Negative Bedside Urine pH 6.0 Bedside Urine Protein + 30 Bedside Urine Urobilinogen - Negative Bedside Urine Nitrite - Negative Bedside Urine Leukocytes - Negative Esterase MDM Narrative Medical decision making narrative: [86-year-old male smoker with increasing shortness of breath and oxygen requirements over the past few days Multiple etiologies for patient's symptoms considered including, but not limited to: [COPD exacerbation, multifocal pneumonia, heart failure, cardiac ischemia, pulmonary embolism versus other] Prior Charts reviewed: Including prior emergency department and oncology notes Labs reviewed and interpreted by myself: Patient leukopenic, stable H&H, critically elevated D-dimer, blood gas notable for primary respiratory acidosis (likely CO2 retention) and hypoxemia, elevated troponin, likely not primary cardiac event, favor demand ischemia relating to respiratory distress and pulmonary embolism Imaging reviewed: CT angiogram consistent with likely large left-sided pulmonary embolism without evidence of heart strain Consultations: Discussed with admitting physician Dr. Siddiqui Patient's symptoms improved over duration of stay with above-stated therapies. Patient with respiratory distress and acute hypoxemic and hypercarbic respiratory failure secondary to exacerbation of COPD, pulmonary embolism resulting in troponin release and acute CHF. Patient requires hospitalization for stabilization and ongoing treatment <Eugenio Herrmann MD - Last Filed: 04/05/22 06:50> Lab Data Labs: Lab Results 04/04/22 04/04/22 04/04/22 Range/Units 12:55 12:55 12:55 WBC 6.3 (4.5-11.0) X10^3/uL RBC 5.46 (4.5-5.9) X10^6/uL Hgb 18.0 H (13.5-17.5) g/dL Hct 54.9 H (41-53) % MCV 100.6 H (80-100) fL MCH 33.1 (26-34) PG MCHC 32.9 (30-36) % RDW 14.0 (11.6-14.8) % Plt Count 135 L (150-400) X10^3/uL Neut % (Auto) 78.3 H (50-75) % Lymph % (Auto) 14.0 L (25-40) % Reynolds % (Auto) 7.3 (3-14) % Eos % (Auto) 0.1 L (2-4) % Baso % (Auto) 0.3 (0-2) % Neut # (Auto) 4900 (2822-4434) /uL Lymph # (Auto) 900 L (1369-2258) /uL Reynolds # (Auto) 500 (0-900) /uL Eos # (Auto) 0 (0-450) /uL Baso # (Auto) 0 (0-100) /uL PT 13.0 H (10.1-12.7) SECONDS INR 1.1 (0.9-1.3) APTT (26-36) SECONDS D-Dimer (<500) ng/ml ABG pH (7.35-7.45) ABG pCO2 (35-45) mmHg ABG pO2 (80-100) mmHg ABG HCO3 (22-26) mmol/L ABG Total CO2 (21-31) mmol/L ABG O2 Saturation (95-100) % ABG Base Excess (-2-2) mmol/L FiO2 Sodium 130 L (137-145) mmol/L Potassium 5.1 (3.4-5.1) mmol/L Chloride 88 L (98-107) mmol/L Carbon Dioxide 36 H (22-32) mmol/L BUN 17 (9-20) mg/dL Creatinine 0.69 (0.66-1.25) mg/dL Estimated GFR > 60 (>60) mL/min BUN/Creatinine Ratio 24.6 H (6-22) Glucose 119 H (80-110) mg/dL Lactate (0.7-2.1) mmol/L Calcium 8.4 (8.4-10.2) mg/dL Magnesium 2.1 (1.6-2.3) mg/dL Total Bilirubin 0.9 (0.2-1.3) mg/dL AST 39 (17-59) IU/L ALT 49 (<50) IU/L Alkaline Phosphatase 86 (38-126) U/L Total Creatine Kinase 68 (55-170) U/L CK-MB (CK-2) TNP CK-MB (CK-2) Rel Index TNP Troponin I 0.705 H* (0.01-0.034) ng/mL C-Reactive Protein 0.6 (<1.0) mg/dL NT-Pro-B Natriuret Pep 8560 H (<450) pg/mL Total Protein 6.6 (6.3-8.2) g/dL Lipase 63 (23-300) U/L Procalcitonin 0.05 (<0.5) ng/mL Urine RBC (0-5/HPF) Urine WBC (0-5/HPF) Amorphous Sediment Urine Bacteria (None) Micro UA Comment SARS-CoV-2 (PCR) (Negative) Influenza A (RT-PCR) (NEGATIVE) Influenza B (RT-PCR) (NEGATIVE) RSV (PCR) (Negative) 04/04/22 04/04/22 04/04/22 Range/Units 12:55 12:55 12:55 WBC (4.5-11.0) X10^3/uL RBC (4.5-5.9) X10^6/uL Hgb (13.5-17.5) g/dL Hct (41-53) % MCV (80-100) fL MCH (26-34) PG MCHC (30-36) % RDW (11.6-14.8) % Plt Count (150-400) X10^3/uL Neut % (Auto) (50-75) % Lymph % (Auto) (25-40) % Reynolds % (Auto) (3-14) % Eos % (Auto) (2-4) % Baso % (Auto) (0-2) % Neut # (Auto) (7270-6137) /uL Lymph # (Auto) (9235-5539) /uL Reynolds # (Auto) (0-900) /uL Eos # (Auto) (0-450) /uL Baso # (Auto) (0-100) /uL PT (10.1-12.7) SECONDS INR (0.9-1.3) APTT 38 H (26-36) SECONDS D-Dimer 1591 H (<500) ng/ml ABG pH (7.35-7.45) ABG pCO2 (35-45) mmHg ABG pO2 (80-100) mmHg ABG HCO3 (22-26) mmol/L ABG Total CO2 (21-31) mmol/L ABG O2 Saturation (95-100) % ABG Base Excess (-2-2) mmol/L FiO2 Sodium (137-145) mmol/L Potassium (3.4-5.1) mmol/L Chloride (98-107) mmol/L Carbon Dioxide (22-32) mmol/L BUN (9-20) mg/dL Creatinine (0.66-1.25) mg/dL Estimated GFR (>60) mL/min BUN/Creatinine Ratio (6-22) Glucose (80-110) mg/dL Lactate 1.1 (0.7-2.1) mmol/L Calcium (8.4-10.2) mg/dL Magnesium (1.6-2.3) mg/dL Total Bilirubin (0.2-1.3) mg/dL AST (17-59) IU/L ALT (<50) IU/L Alkaline Phosphatase (38-126) U/L Total Creatine Kinase (55-170) U/L CK-MB (CK-2) CK-MB (CK-2) Rel Index Troponin I (0.01-0.034) ng/mL C-Reactive Protein (<1.0) mg/dL NT-Pro-B Natriuret Pep (<450) pg/mL Total Protein (6.3-8.2) g/dL Lipase (23-300) U/L Procalcitonin (<0.5) ng/mL Urine RBC (0-5/HPF) Urine WBC (0-5/HPF) Amorphous Sediment Urine Bacteria (None) Micro UA Comment SARS-CoV-2 (PCR) (Negative) Influenza A (RT-PCR) (NEGATIVE) Influenza B (RT-PCR) (NEGATIVE) RSV (PCR) (Negative) 04/04/22 04/04/22 04/04/22 Range/Units 13:18 14:31 14:46 WBC (4.5-11.0) X10^3/uL RBC (4.5-5.9) X10^6/uL Hgb (13.5-17.5) g/dL Hct (41-53) % MCV (80-100) fL MCH (26-34) PG MCHC (30-36) % RDW (11.6-14.8) % Plt Count (150-400) X10^3/uL Neut % (Auto) (50-75) % Lymph % (Auto) (25-40) % Reynolds % (Auto) (3-14) % Eos % (Auto) (2-4) % Baso % (Auto) (0-2) % Neut # (Auto) (1138-5196) /uL Lymph # (Auto) (3993-8620) /uL Reynolds # (Auto) (0-900) /uL Eos # (Auto) (0-450) /uL Baso # (Auto) (0-100) /uL PT (10.1-12.7) SECONDS INR (0.9-1.3) APTT (26-36) SECONDS D-Dimer (<500) ng/ml ABG pH 7.25 L* (7.35-7.45) ABG pCO2 70.5 H* (35-45) mmHg ABG pO2 61 L (80-100) mmHg ABG HCO3 32 H (22-26) mmol/L ABG Total CO2 34 H (21-31) mmol/L ABG O2 Saturation 86 L (95-100) % ABG Base Excess 4.0 H (-2-2) mmol/L FiO2 32 Sodium (137-145) mmol/L Potassium (3.4-5.1) mmol/L Chloride (98-107) mmol/L Carbon Dioxide (22-32) mmol/L BUN (9-20) mg/dL Creatinine (0.66-1.25) mg/dL Estimated GFR (>60) mL/min BUN/Creatinine Ratio (6-22) Glucose (80-110) mg/dL Lactate (0.7-2.1) mmol/L Calcium (8.4-10.2) mg/dL Magnesium (1.6-2.3) mg/dL Total Bilirubin (0.2-1.3) mg/dL AST (17-59) IU/L ALT (<50) IU/L Alkaline Phosphatase (38-126) U/L Total Creatine Kinase (55-170) U/L CK-MB (CK-2) CK-MB (CK-2) Rel Index Troponin I (0.01-0.034) ng/mL C-Reactive Protein (<1.0) mg/dL NT-Pro-B Natriuret Pep (<450) pg/mL Total Protein (6.3-8.2) g/dL Lipase (23-300) U/L Procalcitonin (<0.5) ng/mL Urine RBC None seen (0-5/HPF) Urine WBC None seen (0-5/HPF) Amorphous Sediment 4+ Urine Bacteria None seen (None) Micro UA Comment * SARS-CoV-2 (PCR) Negative (Negative) Influenza A (RT-PCR) Flu a negative (NEGATIVE) Influenza B (RT-PCR) Flu b negative (NEGATIVE) RSV (PCR) Negative (Negative) Urine Dip Bedside Urine Glucose Negative Bedside Urine Bilirubin - Negative Bedside Urine Ketone - Negative Urine Specific [place] 1.030 Bedside Urine Occult Blood - Negative Bedside Urine pH 6.0 Bedside Urine Protein + 30 Bedside Urine Urobilinogen - Negative Bedside Urine Nitrite - Negative Bedside Urine Leukocytes - Negative Esterase Discharge Plan Departure Patient Disposition: Admitted As Inpatient Clinical Impression: Pulmonary embolism, Acute exacerbation of chronic obstructive pulmonary disease, Acute respiratory failure with hypoxemia, Acute CHF, Elevated troponin Admit Date/Time: 04/04/22 18:18 Admit Provider: Jose Siddiqui
[2022-04-04] MEDS: ALBUTEROL/IPRATROPIUM 3 ML AMPUL INH (12:56)
[2022-04-04] MEDS: methylPREDNISolone 125 MG/2 ML VIAL IV (13:33)
[2022-04-04 13:36] LABS: Add Manual Diff / Slide Review NO; Basophils Absolute Auto 0 /uL (0-100); Basophils Percent Auto 0.3 % (0-2); Eosinophils Absolute Auto 0 /uL (0-450); Eosinophils Percent Auto 0.1 % (2-4); Hematocrit 54.9 % (41-53); Lymphocytes Absolute Auto 900 /uL (1100-4500); Mean Corpuscular HGB Conc 32.9 % (30-36); Mean Corpuscular Hemoglobin 33.1 PG (26-34); Mean Corpuscular Volume 100.6 fL (80-100); Monocytes Absolute Auto 500 /uL (0-900); Monocytes Percent Auto 7.3 % (3-14); Neutrophils Absolute Auto 4900 /uL (1500-7000); Neutrophils Percent Auto 78.3 % (50-75); Platelet Count 135 X10^3/uL (150-400); Red Blood Cell Count 5.46 X10^6/uL (4.5-5.9); White Blood Cell Count 6.3 X10^3/uL (4.5-11.0)
[2022-04-04 13:40] LABS: INR 1.1 (0.9-1.3)
[2022-04-04 13:48] LABS: D Dimer 1591 ng/ml (<500)
[2022-04-04 14:01] LABS: BUN Creatinine Ratio 24.6 (6-22); Blood Urea Nitrogen 17 mg/dL (9-20); Carbon Dioxide 36 mmol/L (22-32); Chloride 88 mmol/L (98-107); Creatine Kinase 68 U/L (55-170); Estimated Glomerular Filt Rate > 60 mL/min (>60); Lactate (Lactic Acid) 1.1 mmol/L (0.7-2.1); Potassium 5.1 mmol/L (3.4-5.1); Sodium 130 mmol/L (137-145)
[2022-04-04 14:02] LABS: Alanine Aminotransferase 49 IU/L (<50); Alkaline Phosphatase 86 U/L (38-126); Aspartate Aminotransferase 39 IU/L (17-59); Bilirubin Total 0.9 mg/dL (0.2-1.3); C-Reactive Protein Quant 0.6 mg/dL (<1.0); Calcium 8.4 mg/dL (8.4-10.2); Glucose 119 mg/dL (80-110); Lipase 63 U/L (23-300); Magnesium 2.1 mg/dL (1.6-2.3); Total Protein 6.6 g/dL (6.3-8.2)
[2022-04-04 14:09] LABS: NT-proBNP (BNP-Adult 18+) 8560 pg/mL (<450)
[2022-04-04 14:13] LABS: Procalcitonin 0.05 ng/mL (<0.5)
[2022-04-04 14:13] LABS: Influenza A - CEPHEID Flu A NEGATIVE (NEGATIVE); Influenza B - CEPHEID Flu B NEGATIVE (NEGATIVE); Respiratory Syncytial Virus Negative (Negative)
[2022-04-04 14:18] LABS: COVID-19 CEPHEID 4-PLEX PCR Negative (Negative)
--- NOTE | 2022-04-04 14:26 | DI.CT.S_ITS ---
PROCEDURE: CT ANGIO CHEST PE PROTOCOL INDICATIONS: SOB, hypoxemia, cough, critical Dimer, CA hx TECHNIQUE: After the administration of intravenous contrast, 2 mm thick sections acquired from the pulmonary apices to the posterior costophrenic angles. 3-dimensional maximum intensity projection (MIP) coronal and sagittal reformats were then acquired through the thorax. For radiation dose reduction, the following was used: automated exposure control, adjustment of mA and/or kV according to patient size. COMPARISON: [facility], CT, CT CHEST W CON, 08/29/2021, 10:40. FINDINGS: Image quality: Excellent. Pulmonary arteries: Main pulmonary artery is markedly enlarged measuring 4.6 cm. There is a marked heterogeneous appearance of contrast opacification within the left main pulmonary artery. There is no visualized opacification within the upper lobe segmental branches. Questionable areas of heterogeneous opacification are noted the segmental branches on the right. Lungs and pleura: Lungs are clear. No pleural effusions or pneumothorax. Central and peripheral airways are patent. Prominent emphysematous changes are present. Dependent changes are present within the lung bases bilaterally. Mediastinum: Heart size is markedly enlarged., without pericardial effusion. No mediastinal or hilar adenopathy. Ascending thoracic aorta is enlarged measuring 5.0 cm. Esophagus is normal in caliber, without hiatal hernia. Bones and chest wall: No suspicious bony lesions. Ribs and thoracic spine appear intact throughout. Thyroid gland is unremarkable. No axillary or supraclavicular adenopathy. Abdomen: Visualized upper abdominal solid organs appear normal in the early arterial phase of enhancement. IMPRESSION: Markedly enlarged main pulmonary artery consistent pulmonary artery hypertension. Heterogeneous appearance of the main and left main pulmonary artery as above, with lack of contrast opacification of segmental branches particularly within the upper lobe most consistent with embolism. No right heart strain. The above findings were discussed with Dr. Jah Rubio on 04/04/2022 at 5:09 p.m.. Dictated by: Linda Hardin M.D. on 04/04/2022 at 17:04 Approved by: Linda Hardin M.D. on 04/04/2022 at 17:11
[2022-04-04 14:38] LABS: Troponin I 0.705 ng/mL (0.01-0.034)
[2022-04-04 14:43] LABS: PCO2 ABG 70.5 mmHg (35-45); PO2 ABG 61 mmHg (80-100)
[2022-04-04 14:44] LABS: Fractionated Inspired Oxygen 32; HCO3 ABG 32 mmol/L (22-26); Oxygen Saturation ABG 86 % (95-100); TCO2 ABG 34 mmol/L (21-31)
[2022-04-04] MEDS: cefTRIAXone 2,000 MG in SODIUM CHLORIDE 0.9% 100 ML 200 MG IV (14:56)
[2022-04-04] MEDS: FUROSEMIDE 40 MG/4 ML VIAL IV (14:56)
[2022-04-04 17:50] LABS: PTT Partial Thromboplastin Tim 38 SECONDS (26-36)
[2022-04-04] MEDS: HEPARIN DRIP 25,000 UNIT/500 ML IV.SOLN 24 UNIT IV (17:52)
[2022-04-04] MEDS: HEPARIN 5,000 UNIT/ML VIAL 6200 UNIT IV (17:53)
--- NOTE | 2022-04-04 17:56 | PC.NURSE ---
Verified Heparin with SAQIB DOYLE
--- NOTE | 2022-04-04 19:36 | PM.HP.1 ---
History of Present Illness History of Present Illness Date Patient Seen: 04/04/22 Time Patient Seen: 19:36 Date of Onset of Symptoms: 04/01/22 Chief complaint: COPD Narrative: Patient is a 86-year-old male well known to me. With multiple medical problems. Primarily severe COPD. Who presents after 3 day history of increasing shortness of breath. Patient presented with phone call to me today to the office with a history of saturations in the 70s. Patient was questioning whether not he should be seen. We discussed that he should be emergently seen in the emergency room and was transferred there. Patient states that overall he has been feeling pretty well. 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 But he just felt like he was slowing down 3 days ago. Did not have any chest pain. fevers chills cough or other complaint. Maybe at night he had a little more cough but it is hard to tell. Has a smoker cough. Still smoking. Patient otherwise has had no real other changes. He has not had any trauma. He is had no leg problems swelling or other changes. Patient is got to the point where he really could not do much. He is had no abdominal pain change in bowel movements urinary changes. He is not had any travel history inhaler seem to have helped. 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 Family history: Father with alcohol abuse no other significant issue Social history longstanding Sarah retired Fore[employer], no drinking significant but does smoke Patient History Medical History Cataract of right eye Cyst of buttocks Inguinal hernia bilateral, non-recurrent Surgical History H/O vasectomy Hx of colectomy Family & Social History Social History: household members spouse Safety & Behavioral: Feels Safe in Current Yes Environment Been Physically Hurt or No Threatened By a Person Tobacco & Substance use: Smoking Status Never smoker alcohol intake never alcohol intake frequency holiday/special occasion Substance Use Type does not use Meds Home Medications and Allergies Home Medications Medication Instructions Recorded Confirmed Type calcium carbonate 500 mg calcium 500 mg PO DAILY ##0 09/18/16 09/05/21 History (1,250 mg) tablet (Oyster Shell Calcium 500) cholecalciferol (vitamin D3) 50 2,000 iu PO DAILY ##0 09/18/16 09/05/21 History mcg (2,000 unit) capsule (Vitamin D3) tiotropium bromide 18 mcg capsule 18 mcg RT 0600 ##0 09/18/16 09/05/21 History with inhalation device (Spiriva with HandiHaler) albuterol sulfate 90 mcg/actuation 2 puff inhalation Q6H PRN 08/31/17 09/06/20 History breath activated powder inhaler Shortness Of Breath atorvastatin 10 mg tablet (Lipitor) 10 mg PO DAILY 08/31/17 09/06/20 History Lactobacillus rhamnosus GG 10 1 cap PO DAILY 05/13/18 09/05/21 History billion cell-inulin 200 mg capsule ([facility] Numerate) ascorbic acid (vitamin C) 1,000 mg 1 g PO DAILY 05/13/18 09/06/20 History tablet (Vitamin C) [id number] acid 0.4 1 tab PO DAILY 05/13/18 09/05/21 History mg-lycopene 300 mcg-lutein 250 mcg tablet (Centrum Silver) piroxicam 20 mg capsule 20 mg PO DAILY PRN stiffness 05/13/18 09/05/21 History guaifenesin 600 mg tablet,extended 600 mg PO DAILY 09/05/21 09/05/21 History release tamsulosin 0.4 mg capsule 0.4 mg PO DAILY 09/05/21 09/05/21 History Allergies Allergy/AdvReac Type Severity Reaction Status Date / Time adhesive AdvReac Mild REDNESS Verified 06/07/21 11:28 naproxen AdvReac Mild TERRIBLE Verified 06/07/21 11:28 GAS PAIN Review of Systems Review of Systems Narrative: all negative except above Exam Vital Signs (past 8 hours): - 04/04/22 12:56 04/04/22 13:01 04/04/22 12:41 Temperature 98.2 F Pulse Rate 74 68 62 Respiratory Rate 18 20 Blood Pressure 148/60 H Pulse Oximetry 95 92 89 L Oxygen Delivery Method Nasal Cannula Nasal Cannula Nasal Cannula Oxygen Flow Rate 2 3 Fraction of Inspired Oxygen 28 04/04/22 13:00 04/04/22 13:09 04/04/22 13:09 Temperature Pulse Rate 79 88 Respiratory Rate Blood Pressure 148/60 H Pulse Oximetry 94 90 L Oxygen Delivery Method Nasal Cannula Nasal Cannula Oxygen Flow Rate 3 3 Fraction of Inspired Oxygen 04/04/22 13:30 04/04/22 13:30 04/04/22 14:00 Temperature Pulse Rate 83 81 Respiratory Rate 35 H 34 H Blood Pressure 164/75 H Pulse Oximetry Oxygen Delivery Method Oxygen Flow Rate Fraction of Inspired Oxygen 04/04/22 14:01 04/04/22 14:01 04/04/22 14:30 Temperature Pulse Rate 81 Respiratory Rate 41 H Blood Pressure 164/74 H 151/66 H Pulse Oximetry Oxygen Delivery Method Oxygen Flow Rate Fraction of Inspired Oxygen 04/04/22 14:30 04/04/22 14:49 04/04/22 14:49 Temperature Pulse Rate 85 86 Respiratory Rate 33 H 36 H Blood Pressure 147/65 H Pulse Oximetry 90 L Oxygen Delivery Method Oxygen Flow Rate Fraction of Inspired Oxygen 04/04/22 15:00 04/04/22 15:00 04/04/22 15:30 Temperature Pulse Rate 80 83 Respiratory Rate 37 H 34 H Blood Pressure 163/71 H Pulse Oximetry 83 L 96 Oxygen Delivery Method Oximask Oxygen Flow Rate 3 Fraction of Inspired Oxygen 04/04/22 15:31 04/04/22 15:31 04/04/22 16:00 Temperature Pulse Rate 86 82 Respiratory Rate 29 H 32 H Blood Pressure 102/71 Pulse Oximetry 95 Oxygen Delivery Method Oximask Oxygen Flow Rate 3 Fraction of Inspired Oxygen 04/04/22 16:04 04/04/22 16:04 04/04/22 16:30 Temperature Pulse Rate 80 79 Respiratory Rate 29 H 31 H Blood Pressure 154/72 H Pulse Oximetry 92 96 Oxygen Delivery Method Oximask Oxygen Flow Rate 4 Fraction of Inspired Oxygen 04/04/22 17:00 04/04/22 17:05 04/04/22 17:05 Temperature Pulse Rate 89 81 Respiratory Rate Blood Pressure 152/70 H Pulse Oximetry 95 98 Oxygen Delivery Method Oximask Oxygen Flow Rate 3 Fraction of Inspired Oxygen 04/04/22 17:15 04/04/22 17:15 04/04/22 17:30 Temperature Pulse Rate 82 81 Respiratory Rate Blood Pressure 163/71 H Pulse Oximetry 98 94 Oxygen Delivery Method Oximask Oximask Oxygen Flow Rate 3 3 Fraction of Inspired Oxygen Fraction of Inspired Oxygen 28 SaO2/FiO2 Ratio 339 Oxygen Delivery Method Oximask Oxygen Flow Rate 3 Narrative Exam Narrative: alert fatigued elderly male lying in bed in no acute distress Conjunctiva clear mucous membranes moist neck supple without adenopathy lungs JVD or bruits, lungs are diffuse decreased breath sounds with occasional wheeze. No rhonchi. No egophony. Abdomen is soft positive bowel sounds nontender. Extremities without cyanosis clubbing edema. Nontender. Neurologic exam appears normal. Objective Labs Result Diagrams: 04/04/22 12:55 04/04/22 12:55 Labs: Laboratory Results - last 24 hr 04/04/22 04/04/22 04/04/22 12:55 12:55 12:55 WBC 6.3 RBC 5.46 Hgb 18.0 H Hct 54.9 H MCV 100.6 H MCH 33.1 MCHC 32.9 RDW 14.0 Plt Count 135 L Neut % (Auto) 78.3 H Lymph % (Auto) 14.0 L [place] % (Auto) 7.3 Eos % (Auto) 0.1 L Baso % (Auto) 0.3 Neut # (Auto) 4900 Lymph # (Auto) 900 L [place] # (Auto) 500 Eos # (Auto) 0 Baso # (Auto) 0 PT 13.0 H INR 1.1 APTT D-Dimer ABG pH ABG pCO2 ABG pO2 ABG HCO3 ABG Total CO2 ABG O2 Saturation ABG Base Excess FiO2 Sodium 130 L Potassium 5.1 Chloride 88 L Carbon Dioxide 36 H BUN 17 Creatinine 0.69 Estimated GFR > 60 BUN/Creatinine Ratio 24.6 H Glucose 119 H Lactate Calcium 8.4 Magnesium 2.1 Total Bilirubin 0.9 AST 39 ALT 49 Alkaline Phosphatase 86 Total Creatine Kinase 68 CK-MB (CK-2) TNP CK-MB (CK-2) Rel Index TNP Troponin I 0.705 H* C-Reactive Protein 0.6 NT-Pro-B Natriuret Pep 8560 H Total Protein 6.6 Lipase 63 Procalcitonin 0.05 SARS-CoV-2 (PCR) Influenza A (RT-PCR) Influenza B (RT-PCR) RSV (PCR) 01/17/23 01/17/23 01/17/23 12:55 12:55 12:55 WBC RBC Hgb Hct MCV MCH MCHC RDW Plt Count Neut % (Auto) Lymph % (Auto) [place] % (Auto) Eos % (Auto) Baso % (Auto) Neut # (Auto) Lymph # (Auto) [place] # (Auto) Eos # (Auto) Baso # (Auto) PT INR APTT 38 H D-Dimer 1591 H ABG pH ABG pCO2 ABG pO2 ABG HCO3 ABG Total CO2 ABG O2 Saturation ABG Base Excess FiO2 Sodium Potassium Chloride Carbon Dioxide BUN Creatinine Estimated GFR BUN/Creatinine Ratio Glucose Lactate 1.1 Calcium Magnesium Total Bilirubin AST ALT Alkaline Phosphatase Total Creatine Kinase CK-MB (CK-2) CK-MB (CK-2) Rel Index Troponin I C-Reactive Protein NT-Pro-B Natriuret Pep Total Protein Lipase Procalcitonin SARS-CoV-2 (PCR) Influenza A (RT-PCR) Influenza B (RT-PCR) RSV (PCR) 04/04/22 04/04/22 13:18 14:31 WBC RBC Hgb Hct MCV MCH MCHC RDW Plt Count Neut % (Auto) Lymph % (Auto) [place] % (Auto) Eos % (Auto) Baso % (Auto) Neut # (Auto) Lymph # (Auto) [place] # (Auto) Eos # (Auto) Baso # (Auto) PT INR APTT D-Dimer ABG pH 7.25 L* ABG pCO2 70.5 H* ABG pO2 61 L ABG HCO3 32 H ABG Total CO2 34 H ABG O2 Saturation 86 L ABG Base Excess 4.0 H FiO2 32 Sodium Potassium Chloride Carbon Dioxide BUN Creatinine Estimated GFR BUN/Creatinine Ratio Glucose Lactate Calcium Magnesium Total Bilirubin AST ALT Alkaline Phosphatase Total Creatine Kinase CK-MB (CK-2) CK-MB (CK-2) Rel Index Troponin I C-Reactive Protein NT-Pro-B Natriuret Pep Total Protein Lipase Procalcitonin SARS-CoV-2 (PCR) Negative Influenza A (RT-PCR) Flu a negative Influenza B (RT-PCR) Flu b negative RSV (PCR) Negative Assessment & Plan Assessment & Plan narrative: Respiratory failure. Acute on chronic. Appears to be secondary to COPD exacerbation and pulmonary embolus. Overall otherwise seems to be doing well. No other changes. Will continue to support with respiratory therapy and treatment. Hopefully it will turn corner. oxygen. I suspect he will need to go home on Long-term oxygen. pulmonary embolus. Sources a little unclear. Patient had no real risk factors. patient is moderately active at home. So it is unclear what this represents. On heparin. Will continue. Will follow from there. And questionable be alf treatment. Which at this point will probably be for the rest of his life. COPD exacerbation. Appears mostly be secondary to pulmonary embolus. Does not appear to be infected. Will hold antibiotics for now. Nebulization with medication and IV steroids and follow. Elevated troponin. Nothing definitive on CT scan or EKG for right heart strain but certainly concerning. Maybe just secondary to type 2 myocardial infarction /Demand ischemia. We will trend his troponin and follow. BPH. Stable. No active treatment. History of subdural intracranial hematoma. Will need to watch closely should be well out as far as risk for anticoagulation but will follow. History of significant abdominal issues mostly obstruction small-bowel will need to follow. Nothing active at this time. Would be concerning if develops. History of bladder cancer. Stable. History of tobacco abuse. Sadly patient has smoked right through his lung cancer and is severe COPD. We have discussed this extensively. Patient does not want patch. Will follow. GI prophylaxis do not think he required at this time but will follow. DVT prophylaxis on full-dose heparin should be covered. Code status. We have had long discussions about this he is currently full code but I am hoping we can discuss the probable poor outcomes if this were to happen. Will continue to discuss. Disposition. Expect he will be here through the next 48-72 hours. 50 minutes spent with patient with emergency room doctor reviewing information dictating and orders Time Spent With Patient Critical Care time: I spent a total of [] minutes of critical care time on this patient's care today; this time is exclusive of procedural time.
--- NOTE | 2022-04-04 21:14 | PC.NURSE ---
Patient pulled out the right forearm IV while trying to use a urinal. Patient IV site was bleeding with immediate bruising. Patient right forearm covered with non adherent gauze and wrapped with kerlix.
[2022-04-04 23:34] LABS: Creatine Kinase 60 U/L (55-170)
[2022-04-04 23:46] LABS: PTT Partial Thromboplastin Tim 162 SECONDS (26-36)
[2022-04-04 23:50] LABS: Troponin I 0.886 ng/mL (0.01-0.034)
[2022-04-05] VITALS (12 sets, daily range): BP systolic 106–144; BP diastolic 48–76; PULSE 44–85; RESP 15–32; TEMP 36.1–36.8; O2SAT 89–94
[2022-04-05] MEDS: methylPREDNISolone 125 MG/2 ML VIAL 80 MG IV ×4 (00:03→23:43)
[2022-04-05 00:23] LABS: Bacteria Urine None Seen; RBC Urine None Seen (0-5/HPF); WBC Urine None Seen (0-5/HPF)
[2022-04-05 00:24] LABS: Amorphous Sediment Urine 4+
[2022-04-05 07:31] LABS: Add Manual Diff / Slide Review NO; Basophils Absolute Auto 0 /uL (0-100); Basophils Percent Auto 0.3 % (0-2); Eosinophils Absolute Auto 0 /uL (0-450); Hematocrit 53.8 % (41-53); Lymphocytes Absolute Auto 400 /uL (1100-4500); Lymphocytes Percent Auto 14.4 % (25-40); Mean Corpuscular HGB Conc 33.4 % (30-36); Mean Corpuscular Hemoglobin 33.3 PG (26-34); Mean Corpuscular Volume 99.8 fL (80-100); Monocytes Absolute Auto 100 /uL (0-900); Monocytes Percent Auto 2.2 % (3-14); Neutrophils Absolute Auto 2200 /uL (1500-7000); Neutrophils Percent Auto 83.1 % (50-75); Platelet Count 107 X10^3/uL (150-400); Red Blood Cell Count 5.39 X10^6/uL (4.5-5.9); Red Cell Distribution Width 13.8 % (11.6-14.8); White Blood Cell Count 2.6 X10^3/uL (4.5-11.0)
[2022-04-05 07:37] LABS: PTT Partial Thromboplastin Tim 67 SECONDS (26-36)
[2022-04-05 07:40] LABS: Alanine Aminotransferase 44 IU/L (<50); Alkaline Phosphatase 77 U/L (38-126); Aspartate Aminotransferase 34 IU/L (17-59); BUN Creatinine Ratio 25.4 (6-22); Bilirubin Total 0.6 mg/dL (0.2-1.3); Blood Urea Nitrogen 15 mg/dL (9-20); Calcium 7.9 mg/dL (8.4-10.2); Carbon Dioxide 36 mmol/L (22-32); Chloride 90 mmol/L (98-107); Estimated Glomerular Filt Rate > 60 mL/min (>60); Glucose 117 mg/dL (80-110); Potassium 4.8 mmol/L (3.4-5.1); Sodium 131 mmol/L (137-145); Total Protein 6.1 g/dL (6.3-8.2)
[2022-04-05] MEDS: ALBUTEROL 2.5 MG/3 ML NEB (ADULT) INH ×2 (07:50→19:47)
[2022-04-05] MEDS: IPRATROPIUM 0.5 MG/2.5 ML NEB INH ×5 (07:50→23:30)
--- NOTE | 2022-04-05 13:54 | DI.CT.S_ITS ---
PROCEDURE: CT HEAD/BRAIN WO CON INDICATIONS: mental status change TECHNIQUE: Noncontrast 4.5 mm thick angled axial sections acquired from the foramen magnum to the vertex, with coronal and sagittal reformats. For radiation dose reduction, the following was used: automated exposure control, adjustment of mA and/or kV according to patient size. COMPARISON: [facility], CT, CT HEAD/BRAIN WO CON, 08/29/2021, 10:38. FINDINGS: Image quality: Excellent. CSF spaces: Basal cisterns are patent. No extra-axial fluid collections. The ventricles are symmetric in size and shape. Brain: No intracranial bleeds or masses. There is cerebral volume loss for age, with resultant ventricular and sulcal prominence. There are periventricular and deep white matter chronic small vessel ischemic changes. There is intracranial internal carotid artery atherosclerosis. Skull and face: Calvarium and visualized facial bones appear intact, without suspicious lesions. Sinuses: Visualized sinuses and mastoids are clear. IMPRESSION: No acute intracranial abnormality. No significant change from previous exam. Dictated by: Ulisses Bingham M.D. on 04/05/2022 at 14:56 Approved by: Ulisses Bingham M.D. on 04/05/2022 at 14:58
--- NOTE | 2022-04-05 13:58 | CM.DANOTE ---
Initial Discharge Assessment Note: Case reviewed, met with patient, called spouse Sarah who will be in tomorrow. Introduced self and role. Payer: [facility] and [facility] PCP: oJse Siddiqui 86 year old male admitted yesterday to Dr Siddiqui's service. He was admitted with respiratory failure and P.E., COPD exacerbation. Current smoker. Patient lives in [place] with spouse Sarah and is mostly independent in ADLs per patient; spouse drives. Discussed possibility of Home Health for follow up when returns home, she states he may refuse, that he is very stubborn. Dr Siddiqui's notes mention possibility of ordering home oxygen, and of possible dc for tomorrow? Plan: Continue to follow, dc home when medically stable; discuss Home Health, possible home O2? MOHAN Discharge Planning/Care Management CM Discharge Assessment Start: 04/05/22 13:54 Freq: Status: Active Protocol: Document 04/05/22 13:54 (Rec: 04/05/22 13:57 [id number]) Discharge Planning Assessment Assigned Cooperative Manager Meseret Duarte RN/DCP Advance Directives? No History Provided By Patient,Family Member,Medical Record Prior Living Arrangements House Household Members spouse Comment Sarah Type of transporation used prior to Relies on Others admit Independent with ADL's No: Requires some spouse help Is patient alert and oriented? No: gets mixed up with things during conversation Needs Assistance With Bathing,Meal Prep,Managing Medications,Home Chores / Shopping Caregiver for Another No DME Already Rented / Owned Bath Bench,FWW / Walker Patient/Family Preference Home with Home Health Comment states he may refuse Home Health. Possibly will need Home O2 on dc. Barriers to Discharge No Discharge Plan Home Transportation Arrangement Spouse Additional Comment possible HH if patient agrees, although spouse states he likely will refuse. Whiteboard Updated in Patient Room with Yes name and ext. # of Cooperative Manager Review Status In Process Next Review Type Continued Stay Review
--- NOTE | 2022-04-05 14:03 | P.PN_ITS ---
Subjective Subjective Date Patient Seen: 04/05/22 Time Patient Seen: 14:03 Interval history: Patient seen in follow-up of PE COPD exacerbation and respiratory failure. Patient minimally arousable this Afternoon. Discussed with nurse and basically he has been a little bit like this most of the day. Has been moving things appropriately but has no other changes. Patient was confused last night. But was able to hold a conversation. This morning not able to do that. No other changes. Patient was otherwise complaining of no pain with no other changes. His Exam Vital Signs (past 8 hours): - 04/05/22 08:03 04/05/22 08:05 04/05/22 08:22 Temperature 97.8 F Pulse Rate 85 76 Respiratory Rate 32 H 24 16 Blood Pressure 144/76 H Pulse Oximetry 94 91 Oxygen Delivery Method Oximask Oxygen Flow Rate 2 Fraction of Inspired Oxygen 28 04/05/22 11:27 04/05/22 08:00 Temperature Pulse Rate 85 Respiratory Rate 20 Blood Pressure Pulse Oximetry 93 Oxygen Delivery Method Oximask Nasal Cannula Simple Mask Oxygen Flow Rate 3 Fraction of Inspired Oxygen 32 Fraction of Inspired Oxygen 32 SaO2/FiO2 Ratio 290 Oxygen Delivery Method Oximask Oxygen Flow Rate 3 Narrative Exam Narrative: Alert frail-appearing male in bed in no acute distress. Breathing comfortably. HEENT exam pupils are equal and responsive to light neck supple withou adenopathy lungs are decreased breath sounds with occasional wheeze heart is distant abdomen is soft positive bowel sounds extremities without cyanosis clubbing edema. No calf tenderness. Neurologic exam shows he is moving all 4 extremities he does not wake up not real oriented but does interact. Seems to be sensing okay maybe a little less movement on the right side. Objective Labs Result Diagrams: 04/05/22 07:05 04/05/22 07:05 Labs: Laboratory Results - last 24 hr 04/04/22 04/04/22 04/04/22 12:55 12:55 13:18 WBC RBC Hgb Hct MCV MCH MCHC RDW Plt Count Neut % (Auto) Lymph % (Auto) [place] % (Auto) Eos % (Auto) Baso % (Auto) Neut # (Auto) Lymph # (Auto) [place] # (Auto) Eos # (Auto) Baso # (Auto) APTT 38 H ABG pH ABG pCO2 ABG pO2 ABG HCO3 ABG Total CO2 ABG O2 Saturation ABG Base Excess FiO2 Sodium Potassium Chloride Carbon Dioxide BUN Creatinine Estimated GFR BUN/Creatinine Ratio Glucose Calcium Total Bilirubin AST ALT Alkaline Phosphatase Total Creatine Kinase CK-MB (CK-2) CK-MB (CK-2) Rel Index Troponin I 0.705 H* NT-Pro-B Natriuret Pep 8560 H Total Protein Procalcitonin 0.05 Urine RBC Urine WBC Amorphous Sediment Urine Bacteria Micro UA Comment SARS-CoV-2 (PCR) Negative Influenza A (RT-PCR) Flu a negative Influenza B (RT-PCR) Flu b negative RSV (PCR) Negative 04/04/22 04/04/22 04/04/22 14:31 14:46 23:16 WBC RBC Hgb Hct MCV MCH MCHC RDW Plt Count Neut % (Auto) Lymph % (Auto) [place] % (Auto) Eos % (Auto) Baso % (Auto) Neut # (Auto) Lymph # (Auto) [place] # (Auto) Eos # (Auto) Baso # (Auto) APTT 162 H* D ABG pH 7.25 L* ABG pCO2 70.5 H* ABG pO2 61 L ABG HCO3 32 H ABG Total CO2 34 H ABG O2 Saturation 86 L ABG Base Excess 4.0 H FiO2 32 Sodium Potassium Chloride Carbon Dioxide BUN Creatinine Estimated GFR BUN/Creatinine Ratio Glucose Calcium Total Bilirubin AST ALT Alkaline Phosphatase Total Creatine Kinase CK-MB (CK-2) CK-MB (CK-2) Rel Index Troponin I NT-Pro-B Natriuret Pep Total Protein Procalcitonin Urine RBC None seen Urine WBC None seen Amorphous Sediment 4+ Urine Bacteria None seen Micro UA Comment * SARS-CoV-2 (PCR) Influenza A (RT-PCR) Influenza B (RT-PCR) RSV (PCR) 04/04/22 04/05/22 04/05/22 23:16 07:05 07:05 WBC 2.6 L D RBC 5.39 Hgb 18.0 H Hct 53.8 H MCV 99.8 MCH 33.3 MCHC 33.4 RDW 13.8 Plt Count 107 L Neut % (Auto) 83.1 H Lymph % (Auto) 14.4 L [place] % (Auto) 2.2 L Eos % (Auto) 0.0 L Baso % (Auto) 0.3 Neut # (Auto) 2200 Lymph # (Auto) 400 L [place] # (Auto) 100 Eos # (Auto) 0 Baso # (Auto) 0 APTT ABG pH ABG pCO2 ABG pO2 ABG HCO3 ABG Total CO2 ABG O2 Saturation ABG Base Excess FiO2 Sodium 131 L Potassium 4.8 Chloride 90 L Carbon Dioxide 36 H BUN 15 Creatinine 0.59 L Estimated GFR > 60 BUN/Creatinine Ratio 25.4 H Glucose 117 H Calcium 7.9 L Total Bilirubin 0.6 AST 34 ALT 44 Alkaline Phosphatase 77 Total Creatine Kinase 60 CK-MB (CK-2) TNP CK-MB (CK-2) Rel Index TNP Troponin I 0.886 H* NT-Pro-B Natriuret Pep Total Protein 6.1 L Procalcitonin Urine RBC Urine WBC Amorphous Sediment Urine Bacteria Micro UA Comment SARS-CoV-2 (PCR) Influenza A (RT-PCR) Influenza B (RT-PCR) RSV (PCR) 04/05/22 07:05 WBC RBC Hgb Hct MCV MCH MCHC RDW Plt Count Neut % (Auto) Lymph % (Auto) [place] % (Auto) Eos % (Auto) Baso % (Auto) Neut # (Auto) Lymph # (Auto) [place] # (Auto) Eos # (Auto) Baso # (Auto) APTT 67 H D ABG pH ABG pCO2 ABG pO2 ABG HCO3 ABG Total CO2 ABG O2 Saturation ABG Base Excess FiO2 Sodium Potassium Chloride Carbon Dioxide BUN Creatinine Estimated GFR BUN/Creatinine Ratio Glucose Calcium Total Bilirubin AST ALT Alkaline Phosphatase Total Creatine Kinase CK-MB (CK-2) CK-MB (CK-2) Rel Index Troponin I NT-Pro-B Natriuret Pep Total Protein Procalcitonin Urine RBC Urine WBC Amorphous Sediment Urine Bacteria Micro UA Comment SARS-CoV-2 (PCR) Influenza A (RT-PCR) Influenza B (RT-PCR) RSV (PCR) [facility] Medical History (Updated 04/05/22 @ 11:50 by Jah Rubio DO) Cataract of right eye Cyst of buttocks Inguinal hernia bilateral, non-recurrent Surgical History H/O vasectomy Hx of colectomy Social History household members: spouse Smoking Status: Current every day smoker alcohol intake: current Assessment & Plan Assessment & Plan narrative: Mental status changes. Patient was with decreased mental status yesterday but seems more pronounced today. He is seemingly to move everything but with his history of subdural hematoma and anticoagulation needs CT scan now. Will order and will hold heparin until we know what that means. Certainly if he has a bleed with his PE I think this would be a significant life-threatening illness in in this frail 86-year-old would be probably terminal. Will have to see how this goes. And will see after CT. This could be just being sick and more of a metabolic encephalopathy picture we will have to see. Pulmonary embolus. At this point we do not have a source but there is no real risk factors otherwise we can see other than he probably has been not as active as usual. Will have to hold his heparin for now. Will make the decision next our whether or not we can continue or not may go to Lovenox since easier and will follow. COPD exacerbation. O2 status certainly is stable. Will continue IV steroids. Troponin elevation. Probably demand ischemia although it could be right heart strain. Nothing seen on exam will follow. Recheck troponin this afternoon. Respiratory failure acute on chronic seems to be stable at this time will continue to follow. BPH. Appears to be stable. History of subdural. CT scan now. History of abdominal obstruction stable. History of bladder cancer no issues at this time History of tobacco abuse. No changes at this time. GI prophylaxis will hold. DVT prophylaxis not an issue had been on heparin will need to follow certainly if he is bleeding would not be able to continue. Code status lungs discussion with him and his last night elected for no code. Disposition. Certainly we are in a very difficult situation at this time need to figure out exactly what is going on in his brain will do CT scan and follow. Will be hospitalized for some time. If bleed may need to consider comfort care but will see how things go. Time Spent With Patient Critical Care time: I spent a total of [] minutes of critical care time on this patient's care today; this time is exclusive of procedural time. Quality VTE Deep Vein Thrombosis/Pulmonary Embolism Present on Admission: Yes
--- NOTE | 2022-04-05 14:48 | P.PN_ITS ---
Exam Vital Signs (past 8 hours): - 04/05/22 08:03 04/05/22 08:05 04/05/22 08:22 Temperature 97.8 F Pulse Rate 85 76 Respiratory Rate 32 H 24 16 Blood Pressure 144/76 H Pulse Oximetry 94 91 Oxygen Delivery Method Oximask Oxygen Flow Rate 2 Fraction of Inspired Oxygen 28 04/05/22 11:27 04/05/22 08:00 Temperature Pulse Rate 85 Respiratory Rate 20 Blood Pressure Pulse Oximetry 93 Oxygen Delivery Method Oximask Nasal Cannula Simple Mask Oxygen Flow Rate 3 Fraction of Inspired Oxygen 32 Fraction of Inspired Oxygen 32 SaO2/FiO2 Ratio 290 Oxygen Delivery Method Oximask Oxygen Flow Rate 3 Objective Labs Result Diagrams: 04/05/22 07:05 04/05/22 07:05 Labs: Laboratory Results - last 24 hr 04/04/22 04/04/22 04/04/22 12:55 14:46 23:16 WBC RBC Hgb Hct MCV MCH MCHC RDW Plt Count Neut % (Auto) Lymph % (Auto) [place] % (Auto) Eos % (Auto) Baso % (Auto) Neut # (Auto) Lymph # (Auto) [place] # (Auto) Eos # (Auto) Baso # (Auto) APTT 38 H 162 H* D Sodium Potassium Chloride Carbon Dioxide BUN Creatinine Estimated GFR BUN/Creatinine Ratio Glucose Calcium Total Bilirubin AST ALT Alkaline Phosphatase Total Creatine Kinase CK-MB (CK-2) CK-MB (CK-2) Rel Index Troponin I Total Protein Urine RBC None seen Urine WBC None seen Amorphous Sediment 4+ Urine Bacteria None seen Micro UA Comment * 04/04/22 04/05/22 04/05/22 23:16 07:05 07:05 WBC 2.6 L D RBC 5.39 Hgb 18.0 H Hct 53.8 H MCV 99.8 MCH 33.3 MCHC 33.4 RDW 13.8 Plt Count 107 L Neut % (Auto) 83.1 H Lymph % (Auto) 14.4 L [place] % (Auto) 2.2 L Eos % (Auto) 0.0 L Baso % (Auto) 0.3 Neut # (Auto) 2200 Lymph # (Auto) 400 L [place] # (Auto) 100 Eos # (Auto) 0 Baso # (Auto) 0 APTT Sodium 131 L Potassium 4.8 Chloride 90 L Carbon Dioxide 36 H BUN 15 Creatinine 0.59 L Estimated GFR > 60 BUN/Creatinine Ratio 25.4 H Glucose 117 H Calcium 7.9 L Total Bilirubin 0.6 AST 34 ALT 44 Alkaline Phosphatase 77 Total Creatine Kinase 60 CK-MB (CK-2) TNP CK-MB (CK-2) Rel Index TNP Troponin I 0.886 H* Total Protein 6.1 L Urine RBC Urine WBC Amorphous Sediment Urine Bacteria Micro UA Comment 04/05/22 07:05 WBC RBC Hgb Hct MCV MCH MCHC RDW Plt Count Neut % (Auto) Lymph % (Auto) [place] % (Auto) Eos % (Auto) Baso % (Auto) Neut # (Auto) Lymph # (Auto) [place] # (Auto) Eos # (Auto) Baso # (Auto) APTT 67 H D Sodium Potassium Chloride Carbon Dioxide BUN Creatinine Estimated GFR BUN/Creatinine Ratio Glucose Calcium Total Bilirubin AST ALT Alkaline Phosphatase Total Creatine Kinase CK-MB (CK-2) CK-MB (CK-2) Rel Index Troponin I Total Protein Urine RBC Urine WBC Amorphous Sediment Urine Bacteria Micro UA Comment PFSH Medical History (Updated 04/05/22 @ 11:50 by Jah Rubio DO) Cataract of right eye Cyst of buttocks Inguinal hernia bilateral, non-recurrent Surgical History H/O vasectomy Hx of colectomy Social History household members: spouse Smoking Status: Current every day smoker alcohol intake: current Assessment & Plan Assessment & Plan narrative: Mental status changes. ct negative. probable metabolic encephalopathy but says he does this sometime at home. Restart heparin. discussed with family. follow 45 min spent on floor with patient nurses radiology and orders/dictation and discussion with family. Time Spent With Patient Critical Care time: I spent a total of [] minutes of critical care time on this patient's care today; this time is exclusive of procedural time. Quality VTE Deep Vein Thrombosis/Pulmonary Embolism Present on Admission: Yes
[2022-04-05] MEDS: HEPARIN DRIP 25,000 UNIT/500 ML IV.SOLN 18 UNIT IV ×2 (15:29→21:28)
[2022-04-05] MEDS: ATORVASTATIN 20 MG TABLET 10 MG PO (23:30)
[2022-04-06] VITALS (11 sets, daily range): BP systolic 109–134; BP diastolic 50–61; PULSE 45–72; RESP 16–20; TEMP 36.2–36.7; O2SAT 86–96
[2022-04-06 06:04] LABS: Add Manual Diff / Slide Review NO; Basophils Absolute Auto 0 /uL (0-100); Basophils Percent Auto 0.2 % (0-2); Eosinophils Absolute Auto 0 /uL (0-450); Hematocrit 49.3 % (41-53); Hemoglobin 16.4 g/dL (13.5-17.5); Lymphocytes Absolute Auto 300 /uL (1100-4500); Lymphocytes Percent Auto 4.3 % (25-40); Mean Corpuscular HGB Conc 33.3 % (30-36); Mean Corpuscular Hemoglobin 32.8 PG (26-34); Mean Corpuscular Volume 98.7 fL (80-100); Monocytes Absolute Auto 200 /uL (0-900); Monocytes Percent Auto 3.2 % (3-14); Neutrophils Absolute Auto 6700 /uL (1500-7000); Neutrophils Percent Auto 92.3 % (50-75); Platelet Count 104 X10^3/uL (150-400); Red Blood Cell Count 4.99 X10^6/uL (4.5-5.9); Red Cell Distribution Width 13.4 % (11.6-14.8); White Blood Cell Count 7.2 X10^3/uL (4.5-11.0)
[2022-04-06 06:12] LABS: Alanine Aminotransferase 35 IU/L (<50); Alkaline Phosphatase 65 U/L (38-126); Aspartate Aminotransferase 26 IU/L (17-59); BUN Creatinine Ratio 26.7 (6-22); Bilirubin Total 0.7 mg/dL (0.2-1.3); Blood Urea Nitrogen 16 mg/dL (9-20); Calcium 8.1 mg/dL (8.4-10.2); Carbon Dioxide 38 mmol/L (22-32); Chloride 88 mmol/L (98-107); Creatine Kinase 38 U/L (55-170); Estimated Glomerular Filt Rate > 60 mL/min (>60); Glucose 116 mg/dL (80-110); Potassium 4.8 mmol/L (3.4-5.1); Sodium 128 mmol/L (137-145); Total Protein 5.6 g/dL (6.3-8.2)
[2022-04-06] MEDS: methylPREDNISolone 125 MG/2 ML VIAL 80 MG IV (06:14)
[2022-04-06 06:27] LABS: PTT Partial Thromboplastin Tim 79 SECONDS (26-36)
[2022-04-06 06:28] LABS: Troponin I 0.263 ng/mL (0.01-0.034)
[2022-04-06] MEDS: IPRATROPIUM 0.5 MG/2.5 ML NEB INH ×5 (07:15→23:56)
[2022-04-06] MEDS: ALBUTEROL 2.5 MG/3 ML NEB (ADULT) INH ×2 (07:15→20:40)
--- NOTE | 2022-04-06 08:38 | PM.PN.1 ---
Subjective Subjective Date Patient Seen: 04/06/22 Time Patient Seen: 08:38 Interval history: Patient doing much better this morning. Yesterday he describes being completely out of it. He knows the date except he thinks it November. He knows that Dr. Siddiqui is his physician. He knows he is in the [facility]. He denies any chest pain. He feels his breathing is improved. He is eating even though overall it is decreased. Reviewed chart and met with patient 12 point review of systems is otherwise negative. Exam Vital Signs (past 8 hours): - 04/06/22 04:00 04/06/22 07:15 Temperature 97.7 F Pulse Rate 71 68 Respiratory Rate 18 18 Blood Pressure 109/50 L Pulse Oximetry 91 91 Oxygen Delivery Method Nasal Cannula Oxygen Flow Rate 3 3 Fraction of Inspired Oxygen 32 Fraction of Inspired Oxygen 32 SaO2/FiO2 Ratio 284 Oxygen Delivery Method Nasal Cannula Oxygen Flow Rate 3 Narrative Exam Narrative: O2 sats 91-92% on 3 L nasal cannula oxygen Afebrile vital signs are stable Patient is alert and oriented to person and place and essentially time. He is sitting upright in his hospital bed in no apparent distress HEENT is unremarkable Neck: Supple without masses Chest: Diffuse rhonchi and expiratory wheezes with poor air exchange Cor regular rate and rhythm with distant S1-S2 but no audible murmur rubs or gallops Abdomen positive bowel sounds, soft, nontender Extremities no edema, pulses intact Neurologic exam nonfocal Objective Labs Result Diagrams: 04/06/22 05:50 04/06/22 05:50 Labs: Laboratory Results - last 24 hr 04/06/22 04/06/22 04/06/22 05:50 05:50 05:50 WBC 7.2 D RBC 4.99 Hgb 16.4 Hct 49.3 MCV 98.7 MCH 32.8 MCHC 33.3 RDW 13.4 Plt Count 104 L Neut % (Auto) 92.3 H Lymph % (Auto) 4.3 L [place] % (Auto) 3.2 Eos % (Auto) 0.0 L Baso % (Auto) 0.2 Neut # (Auto) 6700 Lymph # (Auto) 300 L [place] # (Auto) 200 Eos # (Auto) 0 Baso # (Auto) 0 APTT Sodium 128 L Potassium 4.8 Chloride 88 L Carbon Dioxide 38 H BUN 16 Creatinine 0.60 L Estimated GFR > 60 BUN/Creatinine Ratio 26.7 H Glucose 116 H Calcium 8.1 L Total Bilirubin 0.7 AST 26 ALT 35 Alkaline Phosphatase 65 Total Creatine Kinase 38 L CK-MB (CK-2) TNP CK-MB (CK-2) Rel Index TNP Troponin I 0.263 H* Total Protein 5.6 L 04/06/22 05:50 WBC RBC Hgb Hct MCV MCH MCHC RDW Plt Count Neut % (Auto) Lymph % (Auto) [place] % (Auto) Eos % (Auto) Baso % (Auto) Neut # (Auto) Lymph # (Auto) [place] # (Auto) Eos # (Auto) Baso # (Auto) APTT 79 H* D Sodium Potassium Chloride Carbon Dioxide BUN Creatinine Estimated GFR BUN/Creatinine Ratio Glucose Calcium Total Bilirubin AST ALT Alkaline Phosphatase Total Creatine Kinase CK-MB (CK-2) CK-MB (CK-2) Rel Index Troponin I Total Protein PFSH Medical History (Updated 04/05/22 @ 11:50 by Jah Rubio DO) Cataract of right eye Cyst of buttocks Inguinal hernia bilateral, non-recurrent Surgical History H/O vasectomy Hx of colectomy Social History household members: spouse Smoking Status: Current every day smoker alcohol intake: current Assessment & Plan Assessment & Plan narrative: Assessment & Plan narrative: Mental status changes.? On admit patient with mental status changes but was experiencing ongoing hypoxia 4 days prior to admission. Patient with worsening mental status changes yesterday and difficulty awakening. Had a emergent CT scan of his head which did not show a bleed. His heparin was restarted and continued for treatment for his PE. This morning his cognition is improved. Suspect multifactorial. Does have worsening hyponatremia and we will decrease his steroids and continue to monitor this. Also I think likely he is retaining CO2 so we will decrease his O2 sat maintenance at 88%. We will reassess metabolic CO2 tomorrow. If his mental status worsens will get ABG. Pulmonary embolus.? At this point we do not have a source but there is no real risk factors otherwise we can see other than he probably has been not as active as usual.? Will have to hold his heparin for now.? Will make the decision next our whether or not we can continue or not may go to Lovenox since easier and will follow.? Patient has been on tele since admission. He is currently in sinus rhythm and has been in sinus rhythm overnight. Occasional PACs. Certainly hypoxemia and sedentary could contribute to PE. COPD exacerbation.? O2 status certainly is stable.? Will continue IV steroids but will decrease dosage and continue respiratory therapy and other treatments. Troponinemia, improved today. We will continue to monitor..? Probably demand ischemia although it could be right heart strain.? No acute cardiac symptoms.? Recheck troponin in a.m..? Respiratory failure acute on chronic seems to be stable at this time will continue to follow. Will reassess BMP in a.m.. Hyponatremia, worsened. Will decrease steroids. Patient is asymptomatic Neutropenia oddly markedly improved today. Plan will continue to follow. BPH.? Appears to be stable.? History of subdural.? CT scan yesterday neg for acute bleed. Mental status improved today. Continue with heparin to treat PE History of abdominal obstruction stable.? No current symptoms History of bladder cancer no issues at this time History of tobacco abuse.? No changes at this time.? GI prophylaxis will hold.? DVT prophylaxis: On heparin to treat PE Code status DNR/DNI per discussion Dr. Siddiqui had yesterday with patient and his . Disposition.? Time Spent With Patient Critical Care time: I spent a total of [] minutes of critical care time on this patient's care today; this time is exclusive of procedural time. Quality VTE Deep Vein Thrombosis/Pulmonary Embolism Present on Admission: Yes
[2022-04-06] MEDS: TAMSULOSIN 0.4 MG CAPSULE PO (08:56)
--- NOTE | 2022-04-06 11:20 | PT.IIE ---
Current Diagnoses Other pulmonary embolism without acute cor pulmonale (04/04/22) Surgical History (Last Reviewed 04/04/22 @ 12:48 by Jah Rubio DO) H/O vasectomy Hx of colectomy Medical History (Last Reviewed 04/04/22 @ 12:48 by Jah Rubio DO) Cataract of right eye Cyst of buttocks Inguinal hernia bilateral, non-recurrent Physical Therapy Inpatient Evaluation/Re-Eval M1 PT/OT-IP Prior Functional Status Start: 04/06/22 17:29 Freq: NEEDED Status: Active Protocol: Document 04/06/22 17:29 [facility] (Rec: 04/06/22 17:57 [facility] [id number]) Medical Review Prior Functional Status Medical History Reviewed Yes Diet/Fluid Consistency Regular Communication WNL Mobility and Gait indep w/o AD Activities of Daily Living and IADL's indep w/ADLs, drives, does cook and some cleaning Social History Household Members spouse,children Living Arrangements House Number of Floors (Floors) One Floor Number of Stairs To Enter/Railing? 5 JOLIE w/B rails Home Environment Standard Height Toilet,Walk in Shower,Tub/Shower Home Equipment Front Wheel Walker,Straight Cane,Bedside Commode,Shower Seat without Backrest,Perinatal Social Worker, Grab Bars In Shower Additional Social History Comment pt's son works in [employer] business partner and business partner remotely and lives w/pt. pt reports sink near toilet that he can push up from. pt reports he typically uses the tub shower M2 PT-IP Current Condition Start: 04/06/22 17:29 Freq: NEEDED Status: Active Protocol: Document 04/06/22 17:29 [facility] (Rec: 04/06/22 17:57 [facility] [id number]) Physical Therapy Current Condition Current Condition Evaluation Date 04/06/22 Treatment Diagnosis Pulmonary embolus; weakness M3 PT-IP Subjective Start: 04/06/22 17:29 Freq: NEEDED Status: Active Protocol: Document 04/06/22 17:29 [facility] (Rec: 04/06/22 17:57 [facility] [id number]) Subjective Physical Therapy Visit Type Type Initial Evaluation Visit Start Time 10:40 Visit Stop Time 11:15 Total Visit Minutes 35 Number of VALET ATTENDANT Visits 0 Physical Therapy Visit Comments Patient Comments Pt agreeable to work iwth PT M4 PT-IP Mobility and Gait Start: 04/06/22 17:29 Freq: NEEDED Status: Active Protocol: Document 04/06/22 17:29 [facility] (Rec: 04/06/22 17:57 [facility] [id number]) PT-Transfer Assessment Sit to and From Stand Sit to and from Stand Standby Assistance,Use of Upper Extremities Equipment Transfer Assistive Device Gait Belt Orthotic/Prosthetic Devices or Brace: No Comments Mobility Comments pt seated in chair upon PT arrival. Sit to stand SBA then pt amb w/IV pole 150ft w/2 stop breaks w/cues for deep breathing as O2 would get down to about 85%. He went up/down steps wB rails CGA then cued for breathing. Pt then amb back to room CGA w/IV pole. After a couple min O2 inc from 85% to 94%. Pt on 4 L O2. He then amb 20ft back and forth in room without holding IV pole but pt did reach for surfaces in room. Pt left in chair w/call light in reach & chair alarm on. Gait Assessment Gait Gait Assistance Required: Contact Guard Assist Distance (Feet) 320 Assistive Devices Assistive Device Gait Belt Orthotic/Prosthetic Devices or Brace: No Gait Deviations General Gait Pattern Decreased Feet Clearance Factors Limiting Gait Function Factors Limiting Gait Function Decreased Activity Tolerance, Decreased Strength,Poor Balance Stair Climbing Assessment Devices Stair Climbing Assistive Devices Left Railing,Right Railing Technique/Endurance Stair Climbing Direction Ascend and Descend Stair Climbing Technique Step Over Step Number of Steps Climbed 3 Query Text: Stair Climbing Set # Repetitions (reps) 1 PT-Balance Assessment Sitting Balance and Reactions Static Sitting Balance Ability Normal Dynamic Sitting Balance Ability Normal Standing Balance and Reactions Static Standing Balance Ability Fair Dynamic Standing Balance Ability Fair M5 PT-IP Objective Assessments Start: 04/06/22 17:29 Freq: NEEDED Status: Active Protocol: Document 04/06/22 17:29 [facility] (Rec: 04/06/22 17:57 [facility] [id number]) Orientation Orientation/Cognition Memory Description No Deficits Noted Comments pt did occasionally make comments that did not fully make sense to PT or were not in relation to topic of convo. Gross Range of Motion Lower Extremity ROM Assessment Within Functional Limits Strength Lower Extremity Strength Hip overall LE weakness B 4-/5 M6 PT-IP Treatment Start: 04/06/22 17:29 Freq: NEEDED Status: Active Protocol: Document 04/06/22 17:29 [facility] (Rec: 04/06/22 17:57 [facility] [id number]) Physical Therapy Treatment Education Education Provided Safety M7 PT-IP Assessment and Plan Start: 04/06/22 17:29 Freq: NEEDED Status: Active Protocol: Document 04/06/22 17:29 [facility] (Rec: 04/06/22 17:57 [facility] [id number]) PT Summary Assessment and Plan Potential Rehabilitation Potential Good Status of Condition at Evaluation Evolving Summary Impairments Strength,Balance,Gait,Activity Tolerance Assessment Summary Pt presents w/pulmonary embolus and weakness. He does appear slightly unsteady, but did well with pushing IV pole maintaining steadiness, but did reach for furniture when walking in room w/o AD. He does need help with maintainance of O2 cord, but did participate in moving it around with small walk in room . He would benefit from skilled PT to work on balance, gait, LE strength and making sure pt uses not approprate device at home to promote safety. Goals Bed Mobility Goal Independent Transfer Goal Independent Gait Goal Independent Gait Distance 200ft Other Goals up/down stairs w/B rails SBA Days to Meet Goals 8 Frequency of Treatment Frequency Of Treatment Once a Day Treatment Plan Physical Therapy Treatment Plan Bed Mobility Training,Transfer Training,Gait Training, Therapeutic Exercise,Balance Retraining,Discharge Planning, Neuromuscular Re-ed Other Recommendations and Next Treatment assess if pt can amb safely w/ Focus o AD or if needs to use the SPC or FWW at home. Work on self management of O2 line. Recommendations To Nursing Amount of Assist Needed 1 Person Assist Discharge Recommendations PT Discharge Recommendations Home with Assistance,Home Health Transportation Needs at Discharge Private Vehicle
--- NOTE | 2022-04-06 14:33 | PC.NURSE ---
Pt A/O, w/some confusion. Sitting in chair most the day w/o incidence. New IV site started into RFA Heparin infusing at 900u/hr (18cc/hr) Pt sleeps very hard and at times difficult to awaken. Tele NSR per ICU staff. Call light w/in reach, chair alarm on for pt safety. Continue w/plan of care.
[2022-04-06] MEDS: methylPREDNISolone 125 MG/2 ML VIAL 60 MG IV ×2 (14:50→21:04)
[2022-04-06 18:29] LABS: pH ABG 7.25 (7.35-7.45)
[2022-04-06] MEDS: ATORVASTATIN 20 MG TABLET 10 MG PO (21:04)
[2022-04-07 03:15] VITALS: BP 130/63; RESP 16; TEMP 36.3; O2SAT 90
[2022-04-07] MEDS: methylPREDNISolone 125 MG/2 ML VIAL 60 MG IV (05:51)
[2022-04-07 06:11] LABS: Add Manual Diff / Slide Review NO; Basophils Absolute Auto 0 /uL (0-100); Basophils Percent Auto 0.2 % (0-2); Eosinophils Absolute Auto 0 /uL (0-450); Hematocrit 49.7 % (41-53); Hemoglobin 16.2 g/dL (13.5-17.5); Lymphocytes Absolute Auto 400 /uL (1100-4500); Lymphocytes Percent Auto 5.6 % (25-40); Mean Corpuscular HGB Conc 32.6 % (30-36); Mean Corpuscular Hemoglobin 32.7 PG (26-34); Mean Corpuscular Volume 100.5 fL (80-100); Monocytes Absolute Auto 200 /uL (0-900); Monocytes Percent Auto 3.4 % (3-14); Neutrophils Absolute Auto 5800 /uL (1500-7000); Neutrophils Percent Auto 90.8 % (50-75); Platelet Count 91 X10^3/uL (150-400); Red Blood Cell Count 4.95 X10^6/uL (4.5-5.9); Red Cell Distribution Width 13.6 % (11.6-14.8); White Blood Cell Count 6.4 X10^3/uL (4.5-11.0)
[2022-04-07 06:30] LABS: Alanine Aminotransferase 31 IU/L (<50); Alkaline Phosphatase 61 U/L (38-126); Aspartate Aminotransferase 22 IU/L (17-59); BUN Creatinine Ratio 23.8 (6-22); Bilirubin Total 0.7 mg/dL (0.2-1.3); Blood Urea Nitrogen 15 mg/dL (9-20); Calcium 8.2 mg/dL (8.4-10.2); Chloride 86 mmol/L (98-107); Creatine Kinase 28 U/L (55-170); Estimated Glomerular Filt Rate > 60 mL/min (>60); Glucose 120 mg/dL (80-110); Sodium 126 mmol/L (137-145); Total Protein 5.4 g/dL (6.3-8.2)
[2022-04-07 06:31] LABS: PTT Partial Thromboplastin Tim 107 SECONDS (26-36)
[2022-04-07 06:39] LABS: NT-proBNP (BNP-Adult 18+) 4610 pg/mL (<450)
[2022-04-07 06:41] LABS: Potassium 5.9 mmol/L (3.4-5.1)
[2022-04-07 06:42] LABS: Carbon Dioxide 40 mmol/L (22-32)
[2022-04-07 06:47] LABS: Troponin I 0.182 ng/mL (0.01-0.034)
[2022-04-07 08:12] VITALS: PULSE 77; RESP 20; O2SAT 91
[2022-04-07] MEDS: IPRATROPIUM 0.5 MG/2.5 ML NEB INH ×3 (08:12→19:06)
[2022-04-07] MEDS: ALBUTEROL 2.5 MG/3 ML NEB (ADULT) INH ×2 (08:12→19:06)
--- NOTE | 2022-04-07 08:42 | PM.PN.1 ---
Subjective Subjective Date Patient Seen: 04/07/22 Time Patient Seen: 08:42 Interval history: Patient seen in follow-up of multiple issues including mental status changes COPD exacerbation, pulmonary embolus, respiratory failure. Doing better today. More awake. Still falling asleep intermittently. No other significant changes. Patient is alert and oriented and speaking to me today but is falling asleep intermittently. Was on increased oxygen today. Exam Vital Signs (past 8 hours): - 04/07/22 03:15 04/07/22 08:12 Temperature 97.3 F L Pulse Rate 77 Respiratory Rate 16 20 Blood Pressure 130/63 Pulse Oximetry 90 L 91 Oxygen Delivery Method Nasal Cannula Oxygen Flow Rate 4 2 Fraction of Inspired Oxygen 36 SaO2/FiO2 Ratio 250 Oxygen Delivery Method Nasal Cannula Oxygen Flow Rate 2 Narrative Exam Narrative: Alert elderly male in no acute distress Lungs decreased breath sounds throughout heart regular rate and rhythm abdomen benign extremities without edema. Patient is much more alert today although not fully awake but interactive and knows who I am today. No other changes. Nonfocal otherwise Objective Labs Result Diagrams: 04/07/22 06:00 04/07/22 06:00 Labs: Laboratory Results - last 24 hr 04/04/22 04/07/22 04/07/22 14:31 06:00 06:00 WBC 6.4 RBC 4.95 Hgb 16.2 Hct 49.7 MCV 100.5 H MCH 32.7 MCHC 32.6 RDW 13.6 Plt Count 91 L Neut % (Auto) 90.8 H Lymph % (Auto) 5.6 L [place] % (Auto) 3.4 Eos % (Auto) 0.0 L Baso % (Auto) 0.2 Neut # (Auto) 5800 Lymph # (Auto) 400 L [place] # (Auto) 200 Eos # (Auto) 0 Baso # (Auto) 0 APTT 107 H* D ABG pH 7.25 L* Sodium Potassium Chloride Carbon Dioxide BUN Creatinine Estimated GFR BUN/Creatinine Ratio Glucose Calcium Total Bilirubin AST ALT Alkaline Phosphatase Total Creatine Kinase CK-MB (CK-2) CK-MB (CK-2) Rel Index Troponin I NT-Pro-B Natriuret Pep Total Protein 04/07/22 06:00 WBC RBC Hgb Hct MCV MCH MCHC RDW Plt Count Neut % (Auto) Lymph % (Auto) [place] % (Auto) Eos % (Auto) Baso % (Auto) Neut # (Auto) Lymph # (Auto) [place] # (Auto) Eos # (Auto) Baso # (Auto) APTT ABG pH Sodium 126 L Potassium 5.9 H Chloride 86 L Carbon Dioxide 40 H* BUN 15 Creatinine 0.63 L Estimated GFR > 60 BUN/Creatinine Ratio 23.8 H Glucose 120 H Calcium 8.2 L Total Bilirubin 0.7 AST 22 ALT 31 Alkaline Phosphatase 61 Total Creatine Kinase 28 L CK-MB (CK-2) TNP CK-MB (CK-2) Rel Index TNP Troponin I 0.182 H* NT-Pro-B Natriuret Pep 4610 H Total Protein 5.4 L PFSH Medical History (Updated 04/05/22 @ 11:50 by Jah Rubio DO) Cataract of right eye Cyst of buttocks Inguinal hernia bilateral, non-recurrent Surgical History H/O vasectomy Hx of colectomy Social History household members: spouse and children Smoking Status: Current every day smoker alcohol intake: current Assessment & Plan Assessment & Plan narrative: Metabolic encephalopathy. Probably secondary to his respiratory status. Possible CO2 retention. CO2 is up. Will obtain blood gas see where we are. It is going to be difficult to manage his O2 status and will try to shoot for a lower number as far as his O2 goes. Had if that works will follow. No other changes. Keeping 88% and will see how that goes. Otherwise labs normal he does not appear to be infected and there is no other obvious source of issue. I suspect this is cause. Will follow. Pulmonary embolus. This point we can discontinue heparin and switch to Eliquis. 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 Will have to see how that goes. He understands. Does seem to be at L2 understand the situation. Hopefully his insurance will pay. COPD exacerbation. Continue O2. Lower dose. Will switch to oral prednisone and follow from there. Elevated troponin. Type 2 demand ischemia. No issue at this time. Respiratory failure. Seems to be improving. Certainly patient is doing better will require long-term O2. Hyponatremia. Slightly worsened will continue to follow. 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 Will have to see how things go. Hopefully it will can stabilize otherwise will need to be on fluid management History of subdural stable. BPH stable. No evidence of obstruction. History of bladder cancer. Stable. History of tobacco abuse no need to address at this time. GI prophylaxis will hold. DVT prophylaxis on heparin will switch to Eliquis. Code status DNI DNR. Disposition. Hoping the next 2 days will be able to get him out. Will see how things go. Not sure if he is going to be able to go home or not. Will have to see how things go. Time Spent With Patient Critical Care time: I spent a total of [] minutes of critical care time on this patient's care today; this time is exclusive of procedural time. Quality VTE Deep Vein Thrombosis/Pulmonary Embolism Present on Admission: Yes
[2022-04-07] MEDS: TAMSULOSIN 0.4 MG CAPSULE PO (09:06)
[2022-04-07] MEDS: APIXABAN 5 MG TABLET PO ×2 (09:06→20:16)
[2022-04-07] MEDS: SODIUM CHLORIDE 0.9% 1,000 ML 75 ML IV ×2 (09:06→23:55)
[2022-04-07] MEDS: predniSONE 20 MG TABLET 40 MG PO (09:06)
--- NOTE | 2022-04-07 09:40 | PT.IPTN ---
Current Diagnoses Other pulmonary embolism without acute cor pulmonale (04/04/22) Physical Therapy Treatment Note M2 PT-IP Current Condition Start: 04/06/22 17:29 Freq: NEEDED Status: Active Protocol: Document 04/07/22 09:35 [facility] (Rec: 04/07/22 09:53 [facility] [id number]) Physical Therapy Current Condition Current Condition Evaluation Date 04/07/22 Treatment Diagnosis Pulmonary embolus; weakness M3 PT-IP Subjective Start: 04/06/22 17:29 Freq: NEEDED Status: Active Protocol: Document 04/07/22 09:35 [facility] (Rec: 04/07/22 09:53 [facility] [id number]) Subjective Physical Therapy Visit Type Type Treatment Note Visit Start Time 08:45 Visit Stop Time 09:30 Total Visit Minutes 45 Notes Nsg states MD just requested pt to stay between 88-92% SpO2 , 2L O2. Physical Therapy Visit Comments Patient Comments Pt agreeable for PT. States he might as well he doesn't have long. Pt spoke of this twice and nsg was present on 2nd time and aware. Pt thought initially nsg staff was his MD and nsg had to reorient. M4 PT-IP Mobility and Gait Start: 04/06/22 17:29 Freq: NEEDED Status: Active Protocol: Document 04/07/22 09:35 [facility] (Rec: 04/07/22 09:53 [facility] [id number]) PT-Bed Mobility Assessment Rolling Type of Rolling Roll to Left Level of Assist Independent Supine to Sit Supine to Sit Minimal Assistance PT-Transfer Assessment Sit to and From Stand Sit to and from Stand Standby Assistance,Use of Upper Extremities Equipment Transfer Assistive Device Gait Belt Orthotic/Prosthetic Devices or Brace: No Comments Mobility Comments Pt required assist with 2 LO2 line and SpO2 monitor. Pt needed cuing for purse lipped breathing. Pt to start was on 2 LO2 via nc and SpO2 86-87 %. Gait Assessment Gait Gait Assistance Required: Standby Assistance,Contact Guard Assist Distance (Feet) 50 Assistive Devices Assistive Device Gait Belt Orthotic/Prosthetic Devices or Brace: No Gait Deviations General Gait Pattern Decreased Feet Clearance Factors Limiting Gait Function Factors Limiting Gait Function Decreased Activity Tolerance, Decreased Strength Comments Gait Comments Pt ambulated with 2L O2 via nc , and finger monitor on L index finger. Pt appeared steady with gait, but was not able to maintain SpO2 at 88% or greater, even with purse- lipped breathing; therefore pt was not able to ambulate as far as last treatment. SCD's were placed on pt at end of treatment per [facility] request. PT-Balance Assessment Sitting Balance and Reactions Static Sitting Balance Ability Normal Dynamic Sitting Balance Ability Normal Standing Balance and Reactions Static Standing Balance Ability Good Dynamic Standing Balance Ability Good Device Used Walker M5 PT-IP Objective Assessments Start: 04/06/22 17:29 Freq: NEEDED Status: Active Protocol: Document 04/07/22 09:35 [facility] (Rec: 04/07/22 09:53 [facility] [id number]) Orientation Orientation/Cognition Level of Alertness Alert Orientation Name,Day of Week,Place, Situation Comments Pt was disoriented a couple times during therapy. He though the nurse was his physician and needed to be reoriented. Other Assessments Other Other Assessments Pt ambulated ~5' with SpO2 85% . After several minutes of standing value improved to 88% . Pt returned to room with SpO2 values varing from 89-85% . Pt was placed in sitting with legs elevated and purse lipped breathing, bringing SpO2 to 88% at end of treatment. Tray table, call light placed next to patient, and chair alarm arm. SCDs not placed at [facility] request. M6 PT-IP Treatment Start: 04/06/22 17:29 Freq: NEEDED Status: Active Protocol: Document 04/06/22 17:29 [facility] (Rec: 04/06/22 17:57 [facility] [id number]) Physical Therapy Treatment Education Education Provided Safety M7 PT-IP Assessment and Plan Start: 04/06/22 17:29 Freq: NEEDED Status: Active Protocol: Document 04/07/22 09:35 [facility] (Rec: 04/07/22 09:53 [facility] [id number]) PT Summary Assessment and Plan Potential Rehabilitation Potential Good Status of Condition at Evaluation Evolving Summary Impairments Cognition,Transfers,Gait, Activity Tolerance Assessment Summary Pt is being limited in activity tolerance by low SpO2 levels. He was at time confused at who was in front of him, thinking his nurse was his MD. Pt is very pleasant, agreeable and cooperative with directions and instructions. Progressive tolerance to activity is needed to keep pt between 88%- 92% SpO2 at 2L O2. Goals Bed Mobility Goal Independent Transfer Goal Independent Gait Goal Independent Gait Distance 200ft Other Goals up/down stairs w/B rails SBA Days to Meet Goals 8 Frequency of Treatment Frequency Of Treatment Once a Day Treatment Plan Physical Therapy Treatment Plan Bed Mobility Training,Transfer Training,Gait Training, Therapeutic Exercise,Balance Retraining,Discharge Planning, Neuromuscular Re-ed Other Recommendations and Next Treatment assess if pt can amb safely w/ Focus o AD or if needs to use the SPC or FWW at home. Work on self management of O2 line. Recommendations To Nursing Amount of Assist Needed 1 Person Assist Discharge Recommendations PT Discharge Recommendations Home with Assistance,Home Health Transportation Needs at Discharge Private Vehicle
[2022-04-07 10:00] VITALS: BP 118/59; PULSE 74; RESP 18; TEMP 36.3; O2SAT 91
[2022-04-07] MEDS: levoFLOXacin 250 MG TABLET PO (14:13)
--- NOTE | 2022-04-07 14:50 | PC.NURSE ---
Day shift: Per phone conversation with Dr Siddiqui the BiPap order is on hold at this time (approx 1400). Dr Siddiqui to see Pt after clinicf and assess. VBG ordered and results pending at this time. Pt is A&Ox4. 2L NC and O2 is 88 to 92%.
[2022-04-07 16:12] LABS: Albumin 3.9 g/dL (3.5-5.0); Albumin Globulin Ratio 1.4 (1.0-2.8); Globulin 2.7 g/dL (1.7-4.1); HEMOLYSIS 30 (0-50)
[2022-04-07 16:35] LABS: Albumin Globulin Ratio 1.3 (1.0-2.8); Globulin 2.4 g/dL (1.7-4.1); HEMOLYSIS 19 (0-50)
[2022-04-07 16:45] LABS: Albumin 3.4 g/dL (3.5-5.0); Albumin Globulin Ratio 1.3 (1.0-2.8); Globulin 2.7 g/dL (1.7-4.1); HEMOLYSIS 28 (0-50)
[2022-04-07 17:10] LABS: Albumin Globulin Ratio 1.2 (1.0-2.8); Globulin 2.6 g/dL (1.7-4.1); HEMOLYSIS 34 (0-50)
[2022-04-07 18:00] VITALS: BP 108/66; PULSE 78; RESP 20; TEMP 36.5; O2SAT 88
[2022-04-07 19:09] VITALS: PULSE 70; RESP 20; O2SAT 90
[2022-04-07 20:00] VITALS: BP 133/61; PULSE 78; RESP 22; TEMP 36.4; O2SAT 91
[2022-04-07] MEDS: ATORVASTATIN 20 MG TABLET 10 MG PO (20:16)
--- NOTE | 2022-04-07 23:18 | PC.NURSE ---
Patient is alert and oriented except did not know day of month or day of week. Breath sounds diminished but CTA with sat of 91% on oxygen at 2L/min per NC; on continuous oximetry. HRR. Denied nausea. BT present and reports having had BM earlier today. Denied dysuria, frequency or urgency with urination. Is able to move himself in bed. Out of bed with walker and 1 assist. Denied pain. Bilateral calf SCD's applied when he got back to bed. Fall risk score is high and bed alarm is activated.
[2022-04-08] VITALS (9 sets, daily range): BP systolic 111–140; BP diastolic 50–67; PULSE 50–84; RESP 16–22; TEMP 36.2–37.1; O2SAT 90–97
[2022-04-08] MEDS: IPRATROPIUM 0.5 MG/2.5 ML NEB INH ×3 (00:17→12:36)
[2022-04-08 05:51] LABS: Add Manual Diff / Slide Review NO; Basophils Absolute Auto 0 /uL (0-100); Basophils Percent Auto 0.1 % (0-2); Eosinophils Absolute Auto 0 /uL (0-450); Hematocrit 50.2 % (41-53); Hemoglobin 16.2 g/dL (13.5-17.5); Lymphocytes Absolute Auto 600 /uL (1100-4500); Lymphocytes Percent Auto 8.6 % (25-40); Mean Corpuscular HGB Conc 32.3 % (30-36); Mean Corpuscular Hemoglobin 32.5 PG (26-34); Mean Corpuscular Volume 100.7 fL (80-100); Monocytes Absolute Auto 500 /uL (0-900); Monocytes Percent Auto 7.7 % (3-14); Neutrophils Absolute Auto 5800 /uL (1500-7000); Neutrophils Percent Auto 83.6 % (50-75); Platelet Count 83 X10^3/uL (150-400); Red Blood Cell Count 4.98 X10^6/uL (4.5-5.9); Red Cell Distribution Width 13.6 % (11.6-14.8); White Blood Cell Count 6.9 X10^3/uL (4.5-11.0)
[2022-04-08 06:04] LABS: Alanine Aminotransferase 28 IU/L (<50); Albumin 2.9 g/dL (3.5-5.0); Albumin Globulin Ratio 1.3 (1.0-2.8); Alkaline Phosphatase 60 U/L (38-126); Aspartate Aminotransferase 21 IU/L (17-59); Bilirubin Total 0.7 mg/dL (0.2-1.3); Blood Urea Nitrogen 17 mg/dL (9-20); Chloride 87 mmol/L (98-107); Estimated Glomerular Filt Rate > 60 mL/min (>60); Globulin 2.3 g/dL (1.7-4.1); Glucose 81 mg/dL (80-110); HEMOLYSIS < 15 (0-50); Potassium 4.9 mmol/L (3.4-5.1); Sodium 127 mmol/L (137-145); Total Protein 5.2 g/dL (6.3-8.2)
[2022-04-08 06:11] LABS: Carbon Dioxide 36 mmol/L (22-32)
[2022-04-08] MEDS: levoFLOXacin 250 MG TABLET PO (06:35)
[2022-04-08 07:01] LABS: PTT Partial Thromboplastin Tim > 400 SECONDS (26-36)
[2022-04-08] MEDS: APIXABAN 5 MG TABLET PO ×2 (08:24→20:31)
[2022-04-08] MEDS: predniSONE 20 MG TABLET 40 MG PO (08:24)
[2022-04-08] MEDS: ALBUTEROL 2.5 MG/3 ML NEB (ADULT) INH ×2 (08:59→19:30)
--- NOTE | 2022-04-08 10:48 | PM.PN.1 ---
Subjective Subjective Date Patient Seen: 04/08/22 Time Patient Seen: 10:48 Interval history: Patient seen in follow-up of pulmonary embolus COPD exacerbation respiratory failure and hyponatremia. Patient overall is feeling better. With no other significant new changes. Continues to have no chest pain or other changes. Energy level is been good. Got up and ate. Had a bowel movement. Feeling pretty good today. But no other changes. Exam Vital Signs (past 8 hours): - 04/08/22 04:00 04/08/22 08:36 04/08/22 08:59 Temperature 98.5 F 97.1 F L Pulse Rate 73 76 50 L Respiratory Rate 20 20 20 Blood Pressure 125/58 L 111/50 L Pulse Oximetry 90 L 90 L 91 Oxygen Delivery Method Nasal Cannula Oxygen Flow Rate 3 4.5 3 Fraction of Inspired Oxygen 30 SaO2/FiO2 Ratio 300 Oxygen Delivery Method Nasal Cannula Oxygen Flow Rate 3 Narrative Exam Narrative: Alert male awake in no acute distress HEENT exam is unremarkable neck supple without adenopathy lungs are diffuse decreased breath sounds without change. Heart is regular rate and rhythm. Abdomen is benign. Extremities are without significant edema there is no calf tenderness. Objective Labs Result Diagrams: 04/08/22 05:12 04/08/22 05:12 Labs: Laboratory Results - last 24 hr 04/04/22 04/05/22 04/06/22 12:55 07:05 05:50 WBC RBC Hgb Hct MCV MCH MCHC RDW Plt Count Neut % (Auto) Lymph % (Auto) [place] % (Auto) Eos % (Auto) Baso % (Auto) Neut # (Auto) Lymph # (Auto) [place] # (Auto) Eos # (Auto) Baso # (Auto) APTT Sodium Potassium Chloride Carbon Dioxide BUN Creatinine Estimated GFR BUN/Creatinine Ratio Glucose Calcium Total Bilirubin AST ALT Alkaline Phosphatase Total Protein Albumin 3.9 3.4 L 3.0 L Globulin 2.7 2.7 2.6 Albumin/Globulin Ratio 1.4 1.3 1.2 04/07/22 04/08/22 04/08/22 06:00 05:12 05:12 WBC 6.9 RBC 4.98 Hgb 16.2 Hct 50.2 MCV 100.7 H MCH 32.5 MCHC 32.3 RDW 13.6 Plt Count 83 L Neut % (Auto) 83.6 H Lymph % (Auto) 8.6 L [place] % (Auto) 7.7 Eos % (Auto) 0.0 L Baso % (Auto) 0.1 Neut # (Auto) 5800 Lymph # (Auto) 600 L [place] # (Auto) 500 Eos # (Auto) 0 Baso # (Auto) 0 APTT > 400 H* D Sodium Potassium Chloride Carbon Dioxide BUN Creatinine Estimated GFR BUN/Creatinine Ratio Glucose Calcium Total Bilirubin AST ALT Alkaline Phosphatase Total Protein Albumin 3.0 L Globulin 2.4 Albumin/Globulin Ratio 1.3 04/08/22 05:12 WBC RBC Hgb Hct MCV MCH MCHC RDW Plt Count Neut % (Auto) Lymph % (Auto) [place] % (Auto) Eos % (Auto) Baso % (Auto) Neut # (Auto) Lymph # (Auto) [place] # (Auto) Eos # (Auto) Baso # (Auto) APTT Sodium 127 L Potassium 4.9 Chloride 87 L Carbon Dioxide 36 H BUN 17 Creatinine 0.63 L Estimated GFR > 60 BUN/Creatinine Ratio 27.0 H Glucose 81 Calcium 8.0 L Total Bilirubin 0.7 AST 21 ALT 28 Alkaline Phosphatase 60 Total Protein 5.2 L Albumin 2.9 L Globulin 2.3 Albumin/Globulin Ratio 1.3 PFSH Medical History (Updated 04/05/22 @ 11:50 by Jah Rubio DO) Cataract of right eye Cyst of buttocks Inguinal hernia bilateral, non-recurrent Surgical History H/O vasectomy Hx of colectomy Social History household members: spouse and children Smoking Status: Current every day smoker alcohol intake: current Assessment & Plan Assessment & Plan narrative: Hyponatremia. Seems to be improved or at least stabilized on saline. 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 Will discontinue saline and hopefully will maintain appropriate levels. Otherwise what the workup differently. May have to do fluid restrictions will see how it goes. Re-evaluate in a.m.. As long as is stable will go home and follow as outpatient. Respiratory failure. Actually seems to be improving. No real significant change. Will continue O2. Expected to be at least long-term for awhile. Will set up home O2. Pulmonary embolus. Side is not accepted but otherwise doing well. No major issue. INR was elevated this morning. But I think that is probably related to his treatment. No other changes at this time. Will continue to follow and recheck a.m. may need to be on lifelong anticoagulation. COPD exacerbation. Stable. Patient is probably see O2 dependent and will have to keep his O2 low and will need to follow. Probably keep sats between 88 and 90. No other changes. Continue steroids. Will wean slowly over time. Elevated troponin resolving. Demand ischemia. No evidence of [place]. Will follow. History of subdural CT scan showed no change. Will follow BPH. Patient is interested in not taking his Flomax he has been doing that at home and at this point will discontinue and follow he does have follow-up appoint with Urology History of bladder cancer. Stable. History of tobacco abuse no need to address at this time. Recommend discontinuing smoking especially with oxygen GI prophylaxis will hold no DVT prophylaxis on Eliquis. Code status DNI DNR Disposition. Hope discharge home tomorrow. Time Spent With Patient Critical Care time: I spent a total of [] minutes of critical care time on this patient's care today; this time is exclusive of procedural time. Quality VTE Deep Vein Thrombosis/Pulmonary Embolism Present on Admission: Yes
--- NOTE | 2022-04-08 13:44 | PT.IPTN ---
Current Diagnoses Other pulmonary embolism without acute cor pulmonale (04/04/22) Physical Therapy Treatment Note M2 PT-IP Current Condition Start: 04/06/22 17:29 Freq: NEEDED Status: Active Protocol: Document 04/07/22 09:35 LRN (Rec: 04/07/22 09:53 LRN [id number]) Physical Therapy Current Condition Current Condition Evaluation Date 04/07/22 Treatment Diagnosis Pulmonary embolus; weakness M3 PT-IP Subjective Start: 04/06/22 17:29 Freq: NEEDED Status: Active Protocol: Document 04/08/22 13:31 LJ (Rec: 04/08/22 13:44 LJ [id number]) Subjective Physical Therapy Visit Type Type Treatment Note Visit Start Time 13:09 Visit Stop Time 13:26 Total Visit Minutes 23 Number of STATEMENT CLERKS SUPERVISOR Visits 1 Physical Therapy Visit Comments Patient Comments Pt in chair sleeping upon arrival. Easily arousable. Agreeabl to ambulate in hallway with PT M4 PT-IP Mobility and Gait Start: 04/06/22 17:29 Freq: NEEDED Status: Active Protocol: Document 04/08/22 13:31 LJ (Rec: 04/08/22 13:44 LJ [id number]) PT-Transfer Assessment Sit to and From Stand Sit to and from Stand Standby Assistance,Use of Upper Extremities Equipment Transfer Assistive Device Gait Belt Orthotic/Prosthetic Devices or Brace: No Comments Mobility Comments Pt SBA for sit<>stand pushing off armrests of chair. Ambulated to toilet~8' and stood several minutes while voiding. Pt then ambulated out of room into hallway to end of hallway and back to room > 500'. Pt pushing IV pole with STATEMENT CLERKS SUPERVISOR pushing O2 tank. SPO2% remained at 88% throughout ambulation while talking the whole time. Pt returned to sitting in chair in room. Nursing notified IV line tape came loose. Pt in chair with alarm and all needs within reach. Gait Assessment Gait Gait Assistance Required: Standby Assistance,Contact Guard Assist Distance (Feet) 500 Assistive Devices Assistive Device Gait Belt Orthotic/Prosthetic Devices or Brace: No Gait Deviations General Gait Pattern Decreased Feet Clearance Factors Limiting Gait Function Factors Limiting Gait Function Decreased Activity Tolerance, Decreased Strength Comments Gait Comments See mobility section PT-Balance Assessment Sitting Balance and Reactions Static Sitting Balance Ability Normal Dynamic Sitting Balance Ability Normal Standing Balance and Reactions Static Standing Balance Ability Good Dynamic Standing Balance Ability Good M5 PT-IP Objective Assessments Start: 04/06/22 17:29 Freq: NEEDED Status: Active Protocol: Document 04/07/22 09:35 LRN (Rec: 04/07/22 09:53 LRN [id number]) Orientation Orientation/Cognition Level of Alertness Alert Orientation Name,Day of Week,Place, Situation Comments Pt was disoriented a couple times during therapy. He though the nurse was his physician and needed to be reoriented. Other Assessments Other Other Assessments Pt ambulated ~5' with SpO2 85% . After several minutes of standing value improved to 88% . Pt returned to room with SpO2 values varing from 89-85% . Pt was placed in sitting with legs elevated and purse lipped breathing, bringing SpO2 to 88% at end of treatment. Tray table, call light placed next to patient, and chair alarm arm. SCDs not placed at [facility] request. M6 PT-IP Treatment Start: 04/06/22 17:29 Freq: NEEDED Status: Active Protocol: Document 04/08/22 13:31 LJ (Rec: 04/08/22 13:44 [id number]) Physical Therapy Treatment Education Education Provided Safety M7 PT-IP Assessment and Plan Start: 04/06/22 17:29 Freq: NEEDED Status: Active Protocol: Document 04/08/22 13:31 LJ (Rec: 04/08/22 13:44 [id number]) PT Summary Assessment and Plan Potential Rehabilitation Potential Good Status of Condition at Evaluation Evolving Summary Impairments Cognition,Transfers,Gait, Activity Tolerance Progress Towards Goals Progressing Toward Goals Assessment Summary Pt improving with maintaining SPO2 at 86-88% 2L during ambulation while maintaining conversation. He has met goals as far as walking tolerance goes with 2L O2. He is progressing wih other goals of independence and anticipate he will be safe to DC home with assist and O2. Has previously demonstrated stair climbing. Goals Bed Mobility Goal Independent Transfer Goal Independent Gait Goal Independent Gait Distance 200ft Other Goals up/down stairs w/B rails SBA Days to Meet Goals 8 Frequency of Treatment Frequency Of Treatment Once a Day Treatment Plan Physical Therapy Treatment Plan Bed Mobility Training,Transfer Training,Gait Training, Therapeutic Exercise,Balance Retraining,Discharge Planning, Neuromuscular Re-ed Other Recommendations and Next Treatment ambulate without IV pole. Focus Assess if safe independent ambulator without AD while managing O2 line Recommendations To Nursing Amount of Assist Needed 1 Person Assist Discharge Recommendations PT Discharge Recommendations Home with Assistance,Home Health Transportation Needs at Discharge Private Vehicle
[2022-04-08] MEDS: SODIUM CHLORIDE 0.9% FLUSH 10 ML IV (20:31)
[2022-04-08] MEDS: ATORVASTATIN 20 MG TABLET 10 MG PO (20:31)
--- NOTE | 2022-04-08 23:59 | PC.NURSE ---
Patient is mostly alert and oriented; did not know day of month/day of week. Breath sounds very diminished throughout; on oxygen at 3L/min per NC with sat of 97%. Did begin to desat when asleep due to mouth breathing so switched to oximask for the night. Does have a very moist cough and has difficulty clearing secretions. Denies SOB at rest. Is on continuous oximetry. HRR. Denied nausea. BT present and abdomen is soft. Is able to move himself in bed. Out of bed with walker and SBA. Noted to have edema in bilateral feet/ankles and lower legs with left > right. Wearing bilateral calf SCD's. Denies pain and declines scheduled Tylenol. Fall risk score is high and bed alarm is activated.
[2022-04-09] MEDS: IPRATROPIUM 0.5 MG/2.5 ML NEB INH ×2 (00:21→08:33)
[2022-04-09 04:38] VITALS: BP 138/64; PULSE 79; RESP 18; TEMP 36.6; O2SAT 93
[2022-04-09] MEDS: levoFLOXacin 250 MG TABLET PO (06:18)
[2022-04-09 07:32] VITALS: PULSE 77; O2SAT 95
[2022-04-09 08:09] VITALS: BP 148/59; PULSE 65
[2022-04-09] MEDS: ALBUTEROL 2.5 MG/3 ML NEB (ADULT) INH (08:33)
[2022-04-09 08:38] VITALS: PULSE 83; RESP 18; O2SAT 93
[2022-04-09] MEDS: APIXABAN 5 MG TABLET PO (08:55)
[2022-04-09] MEDS: predniSONE 20 MG TABLET 40 MG PO (08:55)
[2022-04-09] MEDS: SODIUM CHLORIDE 0.9% FLUSH 10 ML IV (09:01)
--- NOTE | 2022-04-09 09:13 | P.DS_ITS ---
History of Present Illness History of Present Illness Date Patient Seen: 04/09/22 Time Patient Seen: 09:14 Chief complaint: COPD Narrative: Patient is a 86-year-old male well known to me. With multiple medical problems. Primarily severe COPD. Who presents after 3 day history of increasing shortness of breath. Patient presented with phone call to me today to the office with a history of saturations in the 70s. Patient was questioning whether not he should be seen. We discussed that he should be emergently seen in the emergency room and was transferred there. Patient states that overall he has been feeling pretty well. 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 But he just felt like he was slowing down 3 days ago. Did not have any chest pain. fevers chills cough or other complaint. Maybe at night he had a little more cough but it is hard to tell. Has a smoker cough. Still smoking. Patient otherwise has had no real other changes. He has not had any trauma. He is had no leg problems swelling or other changes. Patient is got to the point where he really could not do much. He is had no abdominal pain change in bowel movements urinary changes. He is not had any travel history inhaler seem to have helped. 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 Family history: Father with alcohol abuse no other significant issue Social history longstanding Sarah retired Fore[employer], no drinking significant but does smoke Discharge Providers Provider Date of admission: 04/04/22 18:18 Discharge Date: 04/09/22 Primary care physician: Jose Siddiqui MD Consults: 04/04/22 22:33 Consult to Discharge Planning Routine Comment: 04/05/22 14:58 Consult to Home Health Routine Comment: Reason For Exam: respiratory failure 04/06/22 08:56 Consult to Physical Therapy Evaluate & Treat Comment: Physician Instructions: Evaluate and Treat 04/07/22 08:40 Consult to Physical Therapy Evaluate & Treat Comment: Physician Instructions: Evaluate and Treat 04/08/22 10:27 Consult to Home Health Routine Comment: Reason For Exam: home oxygen Discharge provider: Jose Siddiqui MD Summary Hospital Course Discharge Diagnosis: Respiratory failure acute on chronic Pulmonary embolus COPD exacerbation Metabolic encephalopathy Elevated troponin Hyponatremia BPH History of subdural hematoma Hospital Course: Respiratory failure acute on chronic. Patient was admitted. [place] to be secondary to primarily COPD exacerbation and pulmonary embolus. Patient did grow Pseudomonas. Will started on Levaquin. Otherwise patient over the 1st 48 hours was having mild difficulty with his breathing but slowly improved and was back to baseline with a slight O2 requirement which is probably his baseline and has been not taking at home. Patient will be sent home on usual medications plus prednisone and Levaquin. Encouraged patient not to smoke Pulmonary embolus. Patient was initially diagnosed. Otherwise did well no evidence of any leg swelling. Patient was placed on initially heparin and then transitioned to Eliquis. Has done well. Hopefully insurance will cover this will have to see as an outpatient. Will certainly in stable condition with no symptoms at the time of discharge. COPD exacerbation. Did extremely well. Responded well to prednisone and nebulization. Patient maybe had a slight pneumonia but felt to be secondary to combination of PE and possible infection. He is otherwise done well and will be followed as outpatient. Metabolic encephalopathy. First 48 hours patient was very somnolent. On day 2 was felt that he was extremely somnolent and a CT was done to make sure he did not have any worsening is his subdural hematoma which he had several months ago but none was found. He otherwise appears to be doing well. He woke up as of that day and is been normal since that time. Will continue to follow felt to be secondary to his COPD exacerbation and pulmonary embolus although there is some question on whether or not with blood gases he probably is a CO2 retainer. We will keep his O2 around 88% to 90% at home and this was discussed with patient. He understands. Questions answered. Elevated troponin felt to be secondary to demand ischemia. No other significant changes combination of possible some right heart strain and COPD exacerbation. No change will be made. No further workup. EKG was normal. Hyponatremia. Probable SIADH. Appears to be stable was treated for 24 hours with saline. Will see what this morning is on discharge follow-up 1 week. BPH. Patient has been off his Flomax for some time and would like to stay off it. Urinated well without issue. History of subdural hematoma. Stable. CT negative Exam Vital Signs (past 8 hours): - 04/09/22 04:38 04/09/22 07:32 04/09/22 08:09 Temperature 97.8 F Pulse Rate 79 77 65 Respiratory Rate 18 Blood Pressure 138/64 148/59 H Pulse Oximetry 93 95 Oxygen Delivery Method Oxygen Flow Rate 3 3 04/09/22 08:38 Temperature Pulse Rate 83 Respiratory Rate 18 Blood Pressure Pulse Oximetry 93 Oxygen Delivery Method Nasal Cannula Oxygen Flow Rate 3 Fraction of Inspired Oxygen 30 SaO2/FiO2 Ratio 300 Oxygen Delivery Method Nasal Cannula Oxygen Flow Rate 3 Narrative Exam Narrative: Alert elderly male lying in bed smiling in no acute distress with O2 on. Mucous membranes moist neck supple without adenopathy JVD or bruits lungs are continued baseline with occasional rhonchi and diffuse decreased breath sounds heart regular rate and rhythm with 2/6 systolic murmur best heard at the right sternal border. Abdomen benign. Extremities without swelling cyanosis clubbing edema. Objective Labs Result Diagrams: 04/08/22 05:12 04/08/22 05:12 [facility] Medical History (Updated 04/05/22 @ 11:50 by Jah Rubio DO) Cataract of right eye Cyst of buttocks Inguinal hernia bilateral, non-recurrent Surgical History H/O vasectomy Hx of colectomy Social History household members: spouse and children Smoking Status: Current every day smoker alcohol intake: current Discharge Assessment & Plan Assessment and Plan Assessment: Improved Plan of Treatment: Discharge home Discharge Plan Discharge Plan Patient Disposition: Home Discharge orders & Medications Prescriptions: New Eliquis 5 mg Tablet 5 mg PO BID Qty: 60 0RF levofloxacin 250 mg Tablet 250 mg PO 0700 Qty: 7 0RF prednisone 20 mg Tablet 40 mg PO DAILY Qty: 60 0RF Continued Spiriva with HandiHaler 18 MCG capsule, w/inhalation device 18 mcg RT 0600 Qty: 0 cholecalciferol (vitamin D3) [Vitamin D3] 2,000 UNIT capsule 2,000 iu PO DAILY Qty: 0 calcium carbonate [Oyster Shell Calcium 500] 500 MG tablet 500 mg PO DAILY Qty: 0 atorvastatin [Lipitor] 10 mg Tablet 10 mg PO DAILY ascorbic acid (vitamin C) [Vitamin C] 1,000 mg Tablet 1 g PO DAILY Centrum Silver 0.4-300-250 mg-mcg-mcg Tablet 1 tab PO DAILY [employer] 10 billion cell -200 mg Capsule 1 cap PO DAILY albuterol sulfate 2.5 mg /3 mL (0.083 %) solution for nebulization 2.5 mg inhalation Q6H PRN (Reason: shortness of breath) albuterol sulfate 90 mcg/actuation HFA aerosol inhaler 1 puff INHALATION DAILY Spiriva with HandiHaler 18 mcg capsule, w/inhalation device 1 cap INHALATION DAILY Discontinued guaifenesin 600 mg Tablet Extended Release 600 mg PO DAILY tamsulosin 0.4 mg Capsule 0.4 mg PO DAILY Label Comments: Pt is no longer taking Follow up/Referrals: Jose Siddiqui MD [Primary Care Provider] - 1 Week (patient to call sunday for appointment next week with Dr Raymundo) Discharge Health Status Multidrug resistant organism: No MDRO Diet/Activity/Treatments Diet: Diet as Tolerated Skin/Wound/Dressing Care Report to your healthcare provider any signs of infection, such as:: chills, fever Visit Report/Discharge Packet Stand Alone Forms: Patient Portal/API, Stroke Signs & Symptoms Discharge Data Primary Care Provider: Jose Siddiqui Quality VTE Deep Vein Thrombosis/Pulmonary Embolism Present on Admission: Yes
[2022-04-09 10:31] LABS: BUN Creatinine Ratio 34.9 (6-22); Blood Urea Nitrogen 22 mg/dL (9-20); Carbon Dioxide 39 mmol/L (22-32); Chloride 88 mmol/L (98-107); Estimated Glomerular Filt Rate > 60 mL/min (>60); Glucose 85 mg/dL (80-110); HEMOLYSIS < 15 (0-50); Potassium 4.7 mmol/L (3.4-5.1); Sodium 129 mmol/L (137-145)
--- NOTE | 2022-04-09 10:34 | PT.IPTN ---
Current Diagnoses Other pulmonary embolism without acute cor pulmonale (04/04/22) Physical Therapy Treatment Note M2 PT-IP Current Condition Start: 04/06/22 17:29 Freq: NEEDED Status: Active Protocol: Document 04/07/22 09:35 LRN (Rec: 04/07/22 09:53 LRN [id number]) Physical Therapy Current Condition Current Condition Evaluation Date 04/07/22 Treatment Diagnosis Pulmonary embolus; weakness M3 PT-IP Subjective Start: 04/06/22 17:29 Freq: NEEDED Status: Active Protocol: Document 04/09/22 10:34 AW (Rec: 04/09/22 11:11 AW [id number]) Subjective Physical Therapy Visit Type Type Treatment Note Visit Start Time 10:10 Visit Stop Time 10:34 Total Visit Minutes 24 Number of MOLD STACKER Visits 0 Physical Therapy Visit Comments Patient Comments I think I'd feel better up and moving around. M4 PT-IP Mobility and Gait Start: 04/06/22 17:29 Freq: NEEDED Status: Active Protocol: Document 04/09/22 10:34 AW (Rec: 04/09/22 11:11 AW [id number]) PT-Bed Mobility Assessment Supine to Sit Supine to Sit Standby Assistance PT-Transfer Assessment Sit to and From Stand Sit to and from Stand Standby Assistance,Use of Upper Extremities Equipment Transfer Assistive Device Gait Belt Orthotic/Prosthetic Devices or Brace: No Transfers Transfer Destination Bed Transfer Technique ambulated Transfer Ability Level of Assist Standby Assistance Comments Mobility Comments Pt sitting up in bed watching TV as PT arrived. SpO2 92% on 3L NC. SBA to sit up EOB and to stand but pt immediately began reaching for objects to steady himself. He agreed to walk but wanted to try without AD. CGA to min A for ambulation without AD. SpO2 was stable on 3 L/min and then on 2 L/min. Pt returned to the room and returned to supine SBA. Gait Assessment Gait Gait Assistance Required: Contact Guard Assist,Minimum Assistance Distance (Feet) 220 Assistive Devices Assistive Device Gait Belt Orthotic/Prosthetic Devices or Brace: No Gait Deviations General Gait Pattern Decreased Feet Clearance, Narrow Based Gait Factors Limiting Gait Function Factors Limiting Gait Function Decreased Activity Tolerance, Decreased Strength,Poor Balance,Poor Safety Awareness Comments Gait Comments Pt ambulated with 3L SpO2 95%. Reduced to 2L and SpO2 was stable 91-94%. Pt unsteady without AD and agreed to use FWW at home. PT-Balance Assessment Sitting Balance and Reactions Static Sitting Balance Ability Normal Dynamic Sitting Balance Ability Normal Standing Balance and Reactions Static Standing Balance Ability Fair Dynamic Standing Balance Ability Fair Device Used no AD M5 PT-IP Objective Assessments Start: 04/06/22 17:29 Freq: NEEDED Status: Active Protocol: Document 04/07/22 09:35 LRN (Rec: 04/07/22 09:53 LRN [id number]) Orientation Orientation/Cognition Level of Alertness Alert Orientation Name,Day of Week,Place, Situation Comments Pt was disoriented a couple times during therapy. He though the nurse was his physician and needed to be reoriented. Other Assessments Other Other Assessments Pt ambulated ~5' with SpO2 85% . After several minutes of standing value improved to 88% . Pt returned to room with SpO2 values varing from 89-85% . Pt was placed in sitting with legs elevated and purse lipped breathing, bringing SpO2 to 88% at end of treatment. Tray table, call light placed next to patient, and chair alarm arm. SCDs not placed at nsg request. M6 PT-IP Treatment Start: 04/06/22 17:29 Freq: NEEDED Status: Active Protocol: Document 04/09/22 10:34 AW (Rec: 04/09/22 11:11 AW [id number]) Physical Therapy Treatment Education Education Provided Safety Other Treatments Other Treatment Performed Education on recommendation for walker at this time and pt agrees. M7 PT-IP Assessment and Plan Start: 04/06/22 17:29 Freq: NEEDED Status: Active Protocol: Document 04/09/22 10:34 AW (Rec: 04/09/22 11:11 AW [id number]) PT Summary Assessment and Plan Potential Rehabilitation Potential Good Status of Condition at Evaluation Evolving Summary Impairments Balance,Cognition,Transfers, Gait,Activity Tolerance Progress Towards Goals Progressing Toward Goals Assessment Summary Pt maintains SpO2 91-94% on 2L /min today but required CGA/ min assist due to fair balance without AD. He is highly distractable which also increases his falls risk. Recommending use of walker at home at this time while pt recovers and he agrees. Pt would benefit from home health PT to improve balance, gait, activity tolerance for reduced falls risk. Goals Bed Mobility Goal Independent Transfer Goal Independent Gait Goal Independent Gait Distance 200ft Other Goals up/down stairs w/B rails SBA Days to Meet Goals 8 Frequency of Treatment Frequency Of Treatment Once a Day Treatment Plan Physical Therapy Treatment Plan Bed Mobility Training,Transfer Training,Gait Training, Therapeutic Exercise,Balance Retraining,Discharge Planning, Neuromuscular Re-ed Other Recommendations and Next Treatment ambulate without IV pole. Focus Assess if safe independent ambulator without AD while managing O2 line Recommendations To Nursing Amount of Assist Needed Standby Assistance Discharge Recommendations PT Discharge Recommendations Home with Assistance,Home Health Transportation Needs at Discharge Private Vehicle
[2022-04-09 11:05] VITALS: BP 135/60; PULSE 74; RESP 16; TEMP 36.8; O2SAT 91
--- NOTE | 2022-04-09 11:57 | CM.DPNOTE ---
DCP/continued: Patient discharging home today with no anticipated d/c planning needs. Met briefly with patient to have him sign IMM. Patient aware and agreeable to d/c plan. P: Home today, family to provide transport. ALICIA
== END 2022-04-09 13:30 | disposition home or self-care (01) | DRG 175 ==
LOC: ED 12:51 → AC 18:19
PROVIDERS: Family Medicine; Admitting Provider Family Medicine; Emergency Provider Emergency Medicine; Family Provider Urology; PCP Family Medicine; Referring Provider Emergency Medicine; Visit Provider Family Medicine
DX: I26.99 Other pulmonary embolism without acute cor pulmonale (principal); G93.41 Metabolic encephalopathy; J96.21 Acute and chronic respiratory failure with hypoxia; J44.1 Chronic obstructive pulmonary disease with (acute) exacerbation; I24.8 Other forms of acute ischemic heart disease; E22.2 Syndrome of inappropriate secretion of antidiuretic hormone; B96.5 Pseudomonas (aeruginosa) (mallei) (pseudomallei) as the cause of diseases classified elsewhere; F17.210 Nicotine dependence, cigarettes, uncomplicated; Z86.79 Personal history of other diseases of the circulatory system; Z20.822 Contact with and (suspected) exposure to COVID-19; Z66 Do not resuscitate
CPT/HCPCS: 0241U; 36415; 36600; 70450; 71045; 71275; 80048; 80053; 81003; 81015; 82550; 82805; 83605; 83690; 83735; 83880; 84145; 84484; 85025; 85379; 85610; 85730; 86140; 87040; 87070; 87077; 87086; 87186; 87205; 94618; 94640; 94760; 94762; 96365; 96366; 96367; 96375; 96376; 97116; 97162; 97530; 99285; J0696; J1644; J1940; J2930; J7613

== ENCOUNTER → 2022-08-31 09:51 | Outpatient (CLI) | payer MEDICARE, BC, SELFPAY ==
[2022-04-04 19:49] VITALS: BMI 27.4
--- NOTE | 2022-08-31 | DI.CT.S_ITS ---
PROCEDURE: CT CHEST WO CON INDICATIONS: Malignant neoplasm of lung TECHNIQUE: Noncontrast 5 mm thick sections acquired from the pulmonary apices to the posterior costophrenic angles. 1 mm lung window, 5 mm thick coronal and sagittal and 7 mm axial MIP reformats were then acquired. For radiation dose reduction, the following was used: automated exposure control, adjustment of mA and/or kV according to patient size. COMPARISON: [facility], [place], PET NECK TO MID THIGH STD, 09/27/2016, 9:12. CT, CT CHEST W CON, 08/31/2020, 13:13. CT, CT CHEST W CON, 08/12/2019, 10:44. CT, CT CHEST W CON, 02/11/2019, 11:02. FINDINGS: Image quality: Excellent. Lungs and pleura: There are postsurgical changes related to left upper lobe lobectomy with associated volume loss in the left hemithorax. Clustered nodules are seen in the right lower lobe (series 3, image 201), new since the last exam. There is an airspace opacity in the right middle lobe, also new. A 0.5 cm subsolid nodule in the right upper lobe appears unchanged (series 3, image 65). Severe emphysema. No pleural effusions or pneumothorax. Central and peripheral airways are patent and normal in caliber. Mediastinum: Heart size is normal. No pericardial effusion. There is a 1.2 cm left paratracheal lymph node. Small AP window lymph nodes are noted.. Mild thoracic aortic ectasia. There are moderate atherosclerotic calcifications. Central pulmonary arteries are normal in size. Esophagus is normal in caliber. No hiatal hernia. Bones and chest wall: No suspicious bony lesions. No vertebral body compression fractures. No axillary or supraclavicular adenopathy by size criteria. Thyroid gland is normal . Abdomen: Mild bilateral adrenal thickening. Possible 1 mm nonobstructive left renal calculus5. IMPRESSION: 1. Stable postsurgical changes in the left hemithorax. 2. There are new clustered nodules in the right lower lobe and a new airspace opacity in the right middle lobe, most likely infectious or inflammatory etiology. Recommend a short-term follow-up CT in 3 months. 3. Stable 0.5 cm subsolid nodule in the right upper lobe. 4. Stable mild mediastinal lymphadenopathy. Dictated by: Crow Long M.D. on 08/31/2022 at 14:52 Approved by: Crow Long M.D. on 08/31/2022 at 15:02
== END ==
PROVIDERS: Family Provider Urology; PCP Family Medicine; Referring Provider Internal Medicine Hematology & Oncology; Visit Provider Internal Medicine Hematology & Oncology
DX: C34.90 Malignant neoplasm of unspecified part of unspecified bronchus or lung (principal); R91.8 Other nonspecific abnormal finding of lung field; R59.0 Localized enlarged lymph nodes
CPT/HCPCS: 71250

== ENCOUNTER → 2022-11-27 09:52 | Outpatient (CLI) | payer MEDICARE, BC, SELFPAY ==
[2022-04-04 19:49] VITALS: BMI 27.4
--- NOTE | 2022-11-27 09:53 | DI.CT.S_ITS ---
PROCEDURE: CT CHEST WO CON INDICATIONS: lung cancer TECHNIQUE: Noncontrast 5 mm thick sections acquired from the pulmonary apices to the posterior costophrenic angles. 1 mm lung window, 5 mm thick coronal and sagittal and 7 mm axial MIP reformats were then acquired. For radiation dose reduction, the following was used: automated exposure control, adjustment of mA and/or kV according to patient size. COMPARISON: [facility], CT, CT CHEST W CON, 08/29/2021, 10:40. [facility], CT, CT ANGIO CHEST PE PROTOCOL, 04/04/2022, 14:29. [facility], CT, CT CHEST WO CON, 08/31/2022, 9:57. FINDINGS: Lungs and pleura: There is a background of emphysema as before. Prior left upper lobectomy. Redemonstrated right middle lobe collapse not significantly changed since the prior exam, new since 04/04/2022. Irregular 9 mm solid right upper lobe nodule (3/64) previously ground-glass/subsolid approximately 5-6 mm. Multiple foci of peripheral airways mucous plugging present. Patchy centrilobular/tree-in-bud nodules also demonstrated. Trace left pleural effusion similar to before. Mediastinum: No pericardial effusion. No mediastinal adenopathy by size criteria. Thoracic aorta ectasia 4.4 cm. The main pulmonary artery is enlarged measuring 3.6 cm. Esophagus is normal in caliber. Evaluation of the mediastinum and eloy is limited on this noncontrast exam. Mediastinal adenopathy appears to be present however for example a 1.1 cm lower paratracheal lymph node (2/26) not significantly changed. Bones and chest wall: Multilevel degenerative change of the visualized spine. No axillary or supraclavicular adenopathy by size criteria. Abdomen: Visualized upper abdominal solid organs and bowel loops appear normal in the absence of contrast. IMPRESSION: 1. An irregular 9 mm solid right upper lobe nodule has increased in size and solid component, previously a 5-6 mm ground-glass or sub solid nodule. This finding could represent metastatic disease/neoplasm, infectious or inflammatory etiology also possible. Attention on follow-up is recommended. 2. Redemonstrated right middle lobe collapse not significantly changed since the prior exam, new since 04/04/2022. 3. Mediastinal adenopathy as before, nonspecific. 4. Enlargement of the main pulmonary artery, a finding which can be seen in the setting of pulmonary hypertension. Dictated by: Kevan Ramirez M.D. on 11/27/2022 at 14:00 Approved by: Kevan Ramirez M.D. on 11/27/2022 at 14:37
== END ==
PROVIDERS: Family Provider Urology; PCP Family Medicine; Referring Provider Internal Medicine Hematology & Oncology; Visit Provider Internal Medicine Hematology & Oncology
DX: C34.90 Malignant neoplasm of unspecified part of unspecified bronchus or lung (principal); I26.99 Other pulmonary embolism without acute cor pulmonale; R91.1 Solitary pulmonary nodule; J98.11 Atelectasis; R59.0 Localized enlarged lymph nodes; I77.89 Other specified disorders of arteries and arterioles; I28.9 Disease of pulmonary vessels, unspecified
CPT/HCPCS: 71250